=== PATIENT | female | born 1955 | race Caucasian/White ===

== ENCOUNTER 2024-03-08 08:08 | Outpatient (REF) | payer MEDICARE, SELFPAY ==
--- NOTE | ~2024-03-08 | XR_ITS ---
EXAMINATION: XR SHOULDER, RIGHT CLINICAL INFORMATION: Pain in right shoulder. COMPARISON: None available. TECHNIQUE: Two views of the right shoulder. FINDINGS: Diffusely demineralized. Degenerative changes in the imaged upper thoracic spine. Moderate osteoarthritic changes in the acromioclavicular joint. Glenohumeral alignment preserved. Nriw-hs-zfcegnff narrowing with sclerosis in the subacromial space. XR/XR shoulder RT min 2V IMPRESSION: Pdmn-oq-zvefzmif degenerative changes.
== END 2024-03-08 08:09 | disposition home or self-care (01) ==
LOC: HO.HOSX 08:08
PROVIDERS: Visit Provider Orthopaedic Surgery
DX: M25.811 Other specified joint disorders, right shoulder (principal)
CPT/HCPCS: 73030; 99212; J1010

== ENCOUNTER 2024-03-08 12:43 | Outpatient (AMB) | payer MEDICARE, SELFPAY ==
--- NOTE | 2024-03-08 12:53 | MHC.OFFVIS ---
Vital Signs 03/08/24 12:58 Height 5 ft Weight 111 lb BMI 21.7 Intake Visit Reasons: SLEEPING [employer]- Right shoulder pain Intake Note: Michelle is a 68 year old Right hand dominate female who presents as a new patient with Right shoulder pain. Patient reports her pain has been going on for about a month and is a 5 on the 1-10 pain scale. She is using tylenol,ice, heat and physical therapy for the pain with minimal relief. She denies injury, injections, and surgery. She states that she is interested in a cortisone injection. She has had cortisone injections given into her knee. She did undergo right total knee replacement surgery 7 years ago. She denies any pain in her right knee. She wishes to hold off on surgery for as long as possible. Allergies No Known Allergies Allergy (Verified 03/08/24 13:01) Medication List - Last Reconciled 03/08/24 by Luis Armando Wright MD acetaminophen 1,000 mg PO TID tmlzhqrzuo-ycpfpnwlddhhd-jvaj 50-325-40 mg 1 - 2 tabs PO DAILY PRN celecoxib 100 mg PO BID estradiol 0.01%(0.1mg/gram) vaginal omeprazole 20 mg PO BID ropinirole 0.25 mg PO BID sertraline 50 mg PO DAILY trazodone 200 mg PO BEDTIME PRN PFSH Surgical History (Updated 03/08/24 @ 13:02 by Carissa eWbster CMA) H/O: hysterectomy Hx of right knee surgery Social History (Updated 03/08/24 @ 13:03 by Carissa Webster CMA) Patient Tobacco Use Status: Never used Tobacco Current occupational status: retired Current occupation: Right hand dominate Physical Exam Vital Signs: BMI result Body Mass Index 21.7 Const Other: Well-nourished well-developed very friendly female awake alert and oriented x3 in no acute distress Extrem Other: Bilateral upper extremity examination shows good capillary refill, no skin lesions noted, normal sensation light touch Right shoulder examination shows decreased range of motion when compared to her left shoulder, positive impingement signs, tenderness over her acromioclavicular joint, 4+ out of 5 strength with supraspinatus testing, no instability Assessment & Plan Assessment & Plan (1) Impingement of right shoulder: Code(s): M25.811 - Other specified joint disorders, right shoulder Category: Medical Plan Ms. Abbott presents with right shoulder pain due to impingement syndrome, rotator cuff tendinosis and possible rotator cuff tearing. I had a lengthy discussion with the patient regarding the treatment options. The patient wishes hold off on surgery for as long as possible. I agree with this plan. The risks and benefits of a right shoulder cortisone injection were discussed at length with the patient. The patient wished to proceed with the injection. She tolerated the injection well. She will continue with her formal physical therapy for now. She will gradually transition to a home stretching program. She will contact me prior to her follow-up appointment in 3 months should any questions or concerns arise. Feel free to call me at any time should questions regarding her orthopedic management arise. I spent 21 minutes in reviewing the patient's records and imaging studies, seeing the patient and documenting in the medical record. Orders: Orders AMB Joint Injection/Aspiration Today M25.811 - Other specified joint disorders, right shoulder XR shoulder RT min 2V Today M25.511 - Pain in right shoulder Coding Level of Care Code Est Pt Level 3 (50439) Diagnoses Impingement of right shoulder M25.811
[2024-03-08 12:58] VITALS: BMI 21.7
== END 2024-03-08 13:25 | disposition home or self-care (01) ==
PROVIDERS: Visit Provider Orthopaedic Surgery
DX: M25.811 Other specified joint disorders, right shoulder (principal)
CPT/HCPCS: 99213

== ENCOUNTER 2024-06-27 08:29 | Outpatient (AMB) | payer MEDICARE, SELFPAY ==
--- NOTE | 2024-06-27 08:32 | MHC.OFFVIS ---
Vital Signs 06/27/24 08:41 Height 5 ft Weight 111 lb BMI 21.7 Intake Visit Reasons: OV-Right shoulder injection-last injection 03/08/24 Intake Note: Michelle is a 68 year old female who presents with complaints of progressively worsening right shoulder pain and weakness. The patient describes her pain as sharp and severe in nature. Most of the pain is along the lateral aspect of her shoulder. Her pain has gotten worse over the last year in spite of continued non operative treatments. She has failed the last 6 weeks of conservative treatment. She did have a cortisone injection given into her right shoulder on March 08 which gave her minimal relief. The patient reports weakness when lifting her right hand above shoulder height. She has tried Tylenol and anti-inflammatory medicines which gave her minimal relief. The patient states that her right shoulder pain is now interfering with her activities of daily living and her ability to sleep well through the night. Allergies No Known Allergies Allergy (Verified 06/27/24 08:40) Medication List - Last Reconciled 06/27/24 by Luis Armando Wright MD acetaminophen 1,000 mg PO TID yxxnqjlwhd-igxsefnjmjzee-cyrw 50-325-40 mg 1 - 2 tabs PO DAILY PRN celecoxib 100 mg PO BID estradiol 0.01%(0.1mg/gram) vaginal omeprazole 20 mg PO BID ropinirole 0.25 mg PO BID sertraline 50 mg PO DAILY trazodone 200 mg PO BEDTIME PRN PFSH Surgical History (Updated 03/08/24 @ 13:02 by Carissa Webster CMA) H/O: hysterectomy Hx of right knee surgery Social History Patient Tobacco Use Status: Never used Tobacco Current occupational status: retired Current occupation: Right hand dominate Physical Exam Vital Signs: BMI result Body Mass Index 21.7 Const Other: Well-nourished well-developed very friendly female awake alert and oriented x3 in no acute distress Extrem Other: Bilateral upper extremity examination shows good capillary refill, no skin lesions noted, normal sensation light touch Right shoulder examination shows decreased range of motion when compared to her left shoulder, pain with range of motion, positive impingement signs, 4+ out of 5 strength with supraspinatus testing, tenderness over her acromioclavicular joint, no instability Results Reviewed Results Reviewed: X-rays of the patient's right shoulder taken previously show severe acromioclavicular joint narrowing, a type 2 acromion, no acute bony abnormalities Assessment & Plan Assessment & Plan (1) Right shoulder pain: Code(s): M25.511 - Pain in right shoulder Category: Medical Plan Ms. Abbott presents with progressively worsening right shoulder pain and weakness due to acromioclavicular joint arthritis, impingement syndrome and possible full-thickness rotator cuff tearing. Thus, I will send the patient for an MRI of her right shoulder for further evaluation. I will see her back once the MRI is completed to discuss the findings and treatment options. She will continue with her range of motion exercises in the meantime to prevent stiffness. Feel free to call me at any time should questions regarding her orthopedic management arise. I spent 22 minutes in reviewing the patient's records and imaging studies, seeing the patient and documenting in the medical record. Orders: Orders MR shoulder RT wo con Today M25.311 - Other instability, right shoulder Coding Level of Care Code Est Pt Level 3 (00157) Diagnoses Right shoulder pain M25.511
[2024-06-27 08:41] VITALS: BMI 21.7
== END 2024-06-27 08:53 | disposition home or self-care (01) ==
PROVIDERS: Visit Provider Orthopaedic Surgery
DX: M25.511 Pain in right shoulder (principal)
CPT/HCPCS: 99213

== ENCOUNTER → 2024-06-27 08:29 | Outpatient (BNVA) | payer MEDICARE, SELFPAY | PROVIDERS: Visit Provider Orthopaedic Surgery | DX: M25.511 Pain in right shoulder (principal) | CPT/HCPCS: 99212 ==

== ENCOUNTER 2024-08-01 11:05 | Outpatient (AMB) | payer MEDICARE, SELFPAY ==
[2024-08-01 11:10] VITALS: BMI 21.7
--- NOTE | 2024-08-01 11:10 | A.OFFVIS_ITS ---
Vital Signs 08/01/24 11:10 Height 5 ft Weight 111 lb BMI 21.7 Intake Visit Reasons: MRI RT shoulder review Intake Note: Michelle is a 68 year old female who presents with complaints of progressively worsening right shoulder pain and weakness. The patient describes her pain as sharp and severe in nature. Most of the pain is along the lateral aspect of her shoulder. Her pain has gotten worse over the last year in spite of continued non operative treatments. She has failed the last 6 weeks of conservative treatment. She did have a cortisone injection given into her right shoulder on March 08 which gave her minimal relief. The patient reports weakness when lifting her right hand above shoulder height. She has tried Tylenol and anti- inflammatory medicines which gave her minimal relief. The patient states that her right shoulder pain is now interfering with her activities of daily living and her ability to sleep well through the night. Allergies No Known Allergies Allergy (Verified 08/01/24 11:11) Medication List - Last Reconciled 08/01/24 by Luis Armando Wright MD acetaminophen 1,000 mg PO TID rdwdhtqive-rzcywaqvlltny-jmrb 50-325-40 mg 1 - 2 tabs PO DAILY PRN celecoxib 100 mg PO BID estradiol 0.01%(0.1mg/gram) vaginal omeprazole 20 mg PO BID ropinirole 0.25 mg PO BID sertraline 50 mg PO DAILY trazodone 200 mg PO BEDTIME PRN PFSH Surgical History (Updated 03/08/24 @ 13:02 by Carissa Webster CMA) H/O: hysterectomy Hx of right knee surgery Social History Patient Tobacco Use Status: Never used Tobacco Current occupational status: retired Current occupation: Right hand dominate Physical Exam Vital Signs: BMI result Body Mass Index 21.7 Const Other: Well-nourished well-developed very friendly female awake alert and oriented x3 in no acute distress Extrem Other: Bilateral upper extremity examination shows good capillary refill, no skin lesi ons noted, normal sensation light touch Right shoulder examination shows slightly decreased range of motion when compared to her left shoulder, 3/5 strength with supraspinatus testing, positive impingement signs, no instability Results Reviewed Results Reviewed: MRI of the patient's right shoulder shows a chronic rotator cuff tear involving the supraspinatus and infraspinatus tendons with retraction almost to the glenoid lip as well as a high-riding humeral head consistent with chronic rotator cuff tearing Assessment & Plan Assessment & Plan (1) Right shoulder pain: Code(s): M25.511 - Pain in right shoulder Category: Medical Plan Ms. Abbott presents with progressively worsening right shoulder pain and weakness due to chronic rotator cuff tear arthropathy. I had a lengthy discussion with the patient regarding the treatment options. At this point the patient appears to be failing continued non operative treatments. The patient may be a candidate for reverse total shoulder replacement surgery. Thus, I will arrange for her to have a follow-up appointment with my partner, Dr. Finnegan, to further discuss the risks and benefits of this type of procedure. The patient will continue with digem-xb-tuuuen exercises in the meantime to prevent stiffness. Feel free to call me at any time should questions regarding her orthopedic management arise. I spent 20 minutes in reviewing the patient's records and imaging studies, seeing the patient and documenting in the medical record. Coding Level of Care Code Est Pt Level 3 (49825) Complex EM visit Add On G2211 Diagnoses Right shoulder pain M25.511
== END 2024-08-01 11:46 | disposition home or self-care (01) ==
PROVIDERS: Visit Provider Orthopaedic Surgery
DX: M75.121 Complete rotator cuff tear or rupture of right shoulder, not specified as traumatic (principal)
CPT/HCPCS: 99213; G2211

== ENCOUNTER → 2024-08-01 11:05 | Outpatient (BNVA) | payer MEDICARE, SELFPAY | PROVIDERS: Visit Provider Orthopaedic Surgery | DX: M25.511 Pain in right shoulder (principal) | CPT/HCPCS: 99212 ==

== ENCOUNTER 2024-08-17 11:45 | Outpatient (AMB) | payer MEDICARE, SELFPAY ==
--- NOTE | 2024-08-17 11:47 | A.OFFVIS_ITS ---
Vital Signs 08/17/24 11:48 Height 5 ft Weight 111 lb BMI 21.7 Intake Visit Reasons: OV- RT shoulder replacement discuss Intake Note: Michelle is a 68 year old right hand dominant female who presents today as she was referred by Dr. Wright to discuss possible Right Total Shoulder Arthroplasty. Right shoulder injection was administered on 03/08/24 which provided minimal relief. Patient reports that she is having pain all the time, worse with activity. She takes Tylenol and Ibuprofen for her pain on occasion which is only mildly helpful. MRI at [facility] 07/06/24 1. Rotator cuff arthropathy and massive rotator cuff tear with glenohumeral joint effusion and fluid extending throughout the subacromial/subdeltoid bursa. 2. Mild AC joint degenerative changes. 3. There is mild glenohumeral joint degenerative change. Allergies No Known Allergies Allergy (Verified 08/17/24 11:48) HPI HPI OV- RT shoulder replacement discuss: Details: Michelle is a 68 year old right hand dominant female who presents today as she was referred by Dr. Wright to discuss possible Right Total Shoulder Arthroplasty. Right shoulder injection was administered on 03/08/24 which provided minimal relief. Patient reports that she is having pain all the time, worse with activ ity. She takes Tylenol and Ibuprofen for her pain on occasion which is only mildly helpful. She denies any injury. She states she just woke up with pain 1 day. It has improved slightly from then. She is able to do most of her daily activities and states that when she can not do something she has assistance. [facility] Surgical History (Updated 08/17/24 @ 11:57 by Courtney Souza CMA) History of bladder surgery H/O: hysterectomy Hx of right knee surgery (~2017) Social History Patient Tobacco Use Status: Never used Tobacco Current occupational status: retired Current occupation: Right hand dominant Physical Exam Vital Signs: BMI result Body Mass Index 21.7 Extrem Other: 90 degrees of abduction with shoulder recruitment 120 degrees of forward flexion External Rotation to 35 degrees 4-/5 empty can Results Reviewed Results Reviewed: I personally reviewed the MR images. MRI at [facility] 07/06/24 1. Rotator cuff arthropathy and massive rotator cuff tear with glenohumeral joint effusion and fluid extending throughout the subacromial/subdeltoid bursa. 2. Mild AC joint degenerative changes. 3. There is mild glenohumeral joint degenerative change. Assessment & Plan Assessment & Plan (1) Rotator cuff arthropathy of right shoulder: Code(s): M12.811 - Other specific arthropathies, not elsewhere classified, right shoulder Category: Medical Plan: This is a 68-year-old woman with right rotator cuff arthropathy. She has a massive rotator cuff tear and proximal humeral migration. She does have discomfort most of the day but states it is tolerable. I informed her of the surgical options which include reverse total shoulder arthroplasty. I also informed her that there is no time pressure to do the surgery and that doing it now or any year would be essentially equivalent assuming that she can continue to function without total motion loss. She seems to be able to do so and is not suffering at this moment. I described the surgery to her and the recovery time. She will consider it but at this time she does not feel like it is needed. She can see me at any time in the future should she so desire Coding Level of Care Code Est Pt Level 4 (25838) Diagnoses Rotator cuff arthropathy of right shoulder M12.811
[2024-08-17 11:48] VITALS: BMI 21.7
== END 2024-08-17 12:15 | disposition home or self-care (01) ==
PROVIDERS: Visit Provider Orthopaedic Surgery
DX: M12.811 Other specific arthropathies, not elsewhere classified, right shoulder (principal)
CPT/HCPCS: 99214

== ENCOUNTER → 2024-08-17 11:45 | Outpatient (BNVA) | payer MEDICARE, SELFPAY | PROVIDERS: Visit Provider Orthopaedic Surgery | DX: M12.811 Other specific arthropathies, not elsewhere classified, right shoulder (principal) | CPT/HCPCS: 99212 ==

== ENCOUNTER 2025-02-28 08:18 | Outpatient (AMB) | payer MEDICARE, SELFPAY ==
--- OUTSIDE RECORDS SUMMARY | 2025-02-28 08:35 | XMS_ITS | Clinical Summary ---
Author Organization [facility] [address] [place] [address] Address [address], [place] Phone Care Team Providers Care Master In Chancery Name Role Phone Tamika Zamora MD Primary Care Prov ider Allergies Active Allergy Reactions Criticality Noted Date Comments Other 09/16/2015 perfumes Medications cholecalciferol (VITAMIN D-3) 25 mcg (1,000 unit) tablet Take 1 tablet (1,000 Units total) by mouth 1 (one) time each day. Active estradioL (ESTRACE) 0.01 % (0.1 mg/gram) vaginal cream Apply a pea-sized amount of cream with your finger into the vagina daily at bedtime for 2 weeks, then two times a week at night. 0 Active rOPINIRole (REQUIP) 0.25 mg tablet Take 2 tablets by mouth 1 hour before bedtime 1 Active traZODone (DESYREL) 100 mg tablet Take 2 tablets (200 mg total) by mouth at bedtime. 7 Active celecoxib (CeleBREX) 100 mg capsule Take 1 capsule (100 mg total) by mouth 2 (two) times a day. 180 each 1 4 Active acetaminophen (TYLENOL 8 HOUR ORAL) Take by mouth. Activ e omeprazole (PriLOSEC) [address] capsule TAKE ONE CAPSULE BY MOUTH TWO TIMES A DAY 4 Active hyoscyamine (ANASPAZ,LEVSIN ) 0.125 mg tablet Active clobetasoL (TEMOVATE) 0.05 % ointment Apply a small amount of clobetasol ointment to vulva twice daily for four weeks. Then, apply daily for four weeks. Then, apply three times per week for four weeks. Then apply twice weekly for four weeks. Then apply once weekly. 3 Active MAGNESIUM ORAL Take 1 Tablet by mouth daily. Active butalbital-acet aminophen-caffe ine (FIORICET, ESGIC) 50-325-40 mg per tabletIndicatio ns:Chronic cough Take 1 tablet by mouth every 6 (six) hours if needed for headaches. 32 tablet 1 5 Active sertraline (ZOLOFT) 50 mg tablet Take 1 tablet (50 mg total) by mouth 1 (one) time each day. 90 tablet 1 5 Active oxyCODONE (ROXICODONE) 5 mg immediate release tablet Take 1 tablet (5 mg total) by mouth every 6 (six) hours if needed for severe pain. Max Daily Amount: 20 mg 15 tablet 5 Active Active Problems Problem Noted Date Diagnosed Date Recurrent UTI 10/10/2024 Esophagitis 07/20/2022 Atrophic vaginitis 05/01/2021 Restless leg syndrome 05/01/2021 Chronic cough 12/07/2019 Chronic rhinitis 12/07/2019 Urinary incontinence 10/25/2019 Insomnia 03/19/2015 Chronic headaches 09/18/2014 Diverticulosis of sigmoid colon 01/24/2009 Overview (10/10/2024): Incidental finding on colonoscopy Hypercholesteremia 11/25/2008 Overview (10/10/2024): ASCVD risk score 3.9% 01/21/2022 Encounters Date Type Department Care Team Description 02/20/2025 7:41 AM EDT - 02/20/2025 11:59 PM EDT Hospital Encounter [facility]o Xray [address] [place] [address] Pain Discharge Disposition: Home or Self Care 02/08/2025 Telephone Adult Medicine [address] [address] Tamika Zamora MD jury duty 02/05/2025 9:41 AM EDT - 02/05/2025 11:59 PM EDT Hospital Encounter [facility] [address] [place] [address] Pain Discharge Disposition: Home or Self Care 02/03/2025 3:40 PM EDT - 02/03/2025 9:36 PM EDT Emergency [facility] Emergency [address] [place] [address] Joe Rodriguez MD Closed fracture of left tibial plateau, initial encounter (Primary Dx) Discharge Disposition: Home or Self Care 01/08/2025 7:34 AM EST Anesthesia Event [facility] Endoscopy [address] [place] [address] Christiane Miller MD Guerin, Erik R, PHILATELIC CONSULTANT 01/08/2025 6:51 AM EST - 01/08/2025 11:59 PM EST Hospital Encounter [facility] Endoscopy [address] [place] [address] Carlie Bains DO Guerin, Erik R, PHILATELIC CONSULTANT Positive colorectal cancer screening using Cologuard test Discharge Disposition: Home or Self Care 12/20/2024 3:45 PM EST Office Visit Adult Medicine - [place] [address] [place] [address] Tamika Zamora MD Chronic cough (Primary Dx); Chronic tension-type headache, intractable; Colon cancer screening from Last 3 Months Immunizations Name Administration Dates Next Due Influenza Quadravalent, MDCK , 0.5ml, preservative free (Flucelvax) 6mo and older 08/29/2019 Influenza trivalent, 0.5mL ( Fluad) 65yo and older 09/08/2022 Influenza trivalent, 0.5mL, preservative free (Fluarix; FluLaval; Fluzone) ages 6mo and older (Afluria) 3 years and older 08/12/2021 Influenza trivalent, with pr eservative (Fluzone; Afluria) 6mo and older 08/08/2015,08/08/2013,10/08/2012 Moderna SARS-CoV-2 COVID-19, mRNA, LNP-S, preservative free 03/11/2022 Pfizer (age 5-11) Bivalent, COVID-19 08/12/2022 Pfizer SARS-CoV-2 COVID-19, mRNA, LNP-S, preservative free 09/11/2021,02/04/2021,01/14/2021 Pneumococcal conjugate 20 va lent (Prevnar 20, PCV 20) 2mo and older 01/21/2022 Td Tetanus diptheria (Tdvax) 7yo and older 04/17 Tdap Tetanus diptheria acell ular pertussis (Boostrix; Adacel) 7yo and older 11/17/2012 Zoster recombinant (Shingrix ) 19yo and older 08/13/2018,05/10/2018 Surgical History Surgery Date Site/Laterality Comments OTHER SURGICAL HISTORY 02/27/14 PROCEDURE: HISTORY OTHER; COMMENT: laparoscopic lysis of adhesions for small bowel obstruction TOTAL KNEE ARTHROPLASTY 05/10/2017 Right PROCEDURE: [place] ARTHRP KNE CONDYLE&PLATU MEDIAL&LAT COMPARTMENTS OTHER SURGICAL HISTORY 05/2015 PROCEDURE: [place] SLING OPERATION STRESS INCONTINENCE INCISIONAL HERNIA REPAIR 10/13/2018 PROCEDURE: [place] IMPLANT MESH OPN HERNIA RPR/DEBRIDEMENT CLOSURE; COMMENT: Dr. Cabrera COLONOSCOPY 01/24/09 PROCEDURE: HISTORICAL COLONOSCOPY; COMMENT: Up to cecum, regular preparation in the right colon, good preparation in the left colon, sigmoid diverticulosis, otherwise normal colon exam HYSTERECTOMY 1986 PROCEDURE: HISTORICAL HYSTERECTOMY; COMMENT: Total Vaginal Hyst She had a prolapsed uterus after her 3rd child PARTIAL HYSTERECTOMY 1983 PROCEDURE: [place] SUPRACERVICAL ABDL HYSTER W/WO RMVL TUBE OVARY; COMMENT: age 28 COLONOSCOPY PROCEDURE: HISTORICAL COLONOSCOPY; COMMENT: Martínez Diverticulosis Coli, Sml Internal Hemorrhoids, Repeat 10 yrs BLADDER SUSPENSION 01/21/2011 PROCEDURE: HISTORICAL BLADDER SUSPENSION; COMMENT: Lap abd sacrocolpopexy and Monarc suburethral sling for cystocele, vaginal vault prolapse and stress urinary incontinence OTHER SURGICAL HISTORY 2012 PROCEDURE: [place] ANTERIOR COLPORRAPHY RPR CYSTOCELE W/CYSTO; COMMENT: for mesh extrusion and anterior cystocele Medical History Medical History Date Comments Insomnia DX:Insomnia Total knee replacement status DX :Total knee replacement status; COMMENT: 2017 Right Recurrent UTI DX:Recurrent UTI Chronic headaches 09/18/2014 DX:Chronic hea daches Diverticulosis of sigmoid colon 01/24/2009 DX:Diverticulosis of sigmoid colon Screen for colon cancer 12/23/2013 DX:Scree n for colon cancer; COMMENT: Dr gates, done 2013, next due 2023 Urinary incontinence 10/25/2019 DX:Urinary incontinence Family History Medical History Relation Name Comments Prostate cancer Brother 1 Arthritis Brother 2 No Known Problems Daughter Alzheimer's disease Father Arthritis Father Dementia Father Diabetes Father Alzheimers Dise ase, Pacemaker, [place] Prostate Arthritis Mother Asthma Mother Substance Abuse , Hypertension, Stroke, Depression Stroke Mother No Known Problems Sister 1 No Known Problems Sister 2 No Known Problems Sister 3 No Known Problems Son 1 Asthma Son 2 Other: stage 4 kidney disease Son 2 Breast cancer Neg Hx Relation Name Status Comments Brother 1 Alive Brother 2 Alive Daughter Alive Father Maternal Grandfather Maternal Grandmother Mother Paternal Grandfather Paternal Grandmother Sister 1 Alive Sister 2 Alive Sister 3 Alive Son 1 Alive Son 2 Alive Social History Tobacco Use Types Packs/Day Years Used Date Smoking Tobacco: Former Cigarettes Q uit: 02/06/1986 Smokeless Tobacco: Never Alcohol Use Standard Drinks/Week Comments Yes 4 (1 standard drink = 0.6 oz pur e alcohol) Comments No Sex and Gender Information Value Date Recorded Sex Assigned at Female 01/08/2025 6:49 AM EST Legal Sex Female 10:08 AM EST Gender Identity Female 01/08/2025 6:49 AM EST Sexual Orientation Straight 01/08/2025 6: 49 AM EST Obstetrics History Para Term AB IAB SAB Ectopic Multiple Livin g Live Births 3 3 3 3 Date Outcome GA Total Labor Labor/2nd/3rd Weight Sex Type Anes PTL Nancy A1 A5 Name Clin Term Term Term Last Filed Vital Signs Vital Sign Reading Time Taken Comments Blood Pressure 120/91 02/03/2025 3:47 PM EDT Pulse 79 02/03/2025 9:35 PM EDT Temperature 36.5 ??C (97.7 ??F) 02/03/2025 3:47 PM ED T Respiratory Rate 18 02/03/2025 9:35 PM EDT Oxygen Saturation 98% 02/03/2025 9:35 PM EDT Inhaled Oxygen Concentration - - Weight 46.7 kg (103 lb) 02/03/2025 3:47 PM EDT Height 149.9 cm (4' 11 ) 02/03/2025 3:47 PM EDT Body Mass Index 20.8 02/03/2025 3:47 PM EDT Plan of Treatment Health Maintenance Due Date Last Done Comments Colorectal Cancer Screening: Stool Based Tests (FOBT/FIT) 10/15/2022 09/04/2020, 06/01/2019, 02/01/2018, Additional history exists Osteoporosis Screening (Bone Density Screening) 10/15/2022 Social Influencers of Health Screening 10/15/2022 COVID-19 Vaccine ( season) 2025 08/03/2024, 08/31/2023, 08/12/2022, Additional history exists Depression Screening 06/28/2025 06/28/2024 Medicare Annual Wellness Visit 06/28/2025 06/28/2024 Falls Risk Assessment 01/08/2026 01/08/2025 Breast Cancer Screening 10/30/2026 10/30/20, 10/22/2023, 11/11/2022, Additional history exists Cholesterol Screening (Lipid Panel) 01/20/2027 01/20/2022 Colorectal Cancer Screening: Colonoscopy 01/08/2030 01/08/2025 DTaP,Tdap,and Td Vaccines (4 - Td or Tdap) 04/17/2034 04/17/2024, 11/17/2012, 11/08/2002 Hepatitis C Screening Completed 01/04/2014 Zoster Vaccines Completed 08/13/2018, 05/10/2018 Pneumococcal Vaccine: 50+ Years Completed 01/21/2022, 01/22/2011 RSV Immunization Adult Patients Completed 09/19/2023 Influenza Vaccine Completed 07/26/2024, , 09/08/2022, Additional history exists HIB Vaccines Aged Out No longer eligi ble based on patient's age to complete this topic HPV Vaccines Aged Out No longer eligi ble based on patient's age to complete this topic Hepatitis A Vaccines Aged Out No long er eligible based on patient's age to complete this topic Hepatitis B Vaccines Aged Out No long er eligible based on patient's age to complete this topic IPV Vaccines Aged Out No longer eligi ble based on patient's age to complete this topic MMR Vaccines Aged Out No longer eligi ble based on patient's age to complete this topic Meningococcal ACWY Vaccine Aged Out N o longer eligible based on patient's age to complete this topic Meningococcal B Vaccine Aged Out No l onger eligible based on patient's age to complete this topic RSV Immunization Patients Under 20 months Aged Out No longer eligible based on patient's age to complete this topic Varicella Vaccines Aged Out No longer eligible based on patient's age to complete this topic Procedures Procedure Name Priority Date/Time Associated Diagnosis Comments XR KNEE 1-2 VIEWS LEFT Routine 02/20/2025 10:10 AM EDT Pain XR KNEE 1-2 VIEWS LEFT Routine 02/05/2025 9:[address] LOWER EXTREMITY WO CONTRAST LEFT STAT 02/03/2025 7:32 PM EDT XR KNEE 4+ VIEWS LEFT STAT 02/03/2025 4:01 PM EDT COLONOSCOPY Routine 01/08/2025 8:04 AM EST Positive colorectal cancer screening using Cologuard test TISSUE EXAM Routine 01/08/2025 7:58 AM EST Positive colorectal cancer screening using Cologuard test LAB COLOGUARD?? COLON CANCER SCREEN Routine 12/26/2024 7:45 AM EST Colon cancer screening MG MAMMO DIGITAL SCREENING W GUNNAR BILAT Routine 10/30/2024 7:54 AM EST Encounter for screening mammogram for breast cancer HM DEPRESSION SCREENING Routine 06/28/2024 LIPID PANEL Routine 01/20/2022 HEPATITIS C SCREENING Routine 01/04/2014 from Last 3 Months or Most Recently Relevant to Health Maintenance Results * XR Knee 1-2 Views Left (02/20/2025 10:10 AM EDT) Only the most recent of2 resultswithin the time period is included. Narrative RIS PACS/VR - 02/20/2025 10:10 AM EDT This order has been auto-finalized and does not contain a result. Vanita Cool MD IMG XR PROCEDURES Final Result RIS PACS/VR * CT Lower Extremity wo Contrast Left (02/03/2025 7:32 PM EDT) Anatomical Region Laterality Modality Lower Extremities Left Computed Tomog pratibha 02/03/2025 8:03 PM EDT Impressions 02/03/2025 8:03 PM EDT Impression: Lateral tibial plateau mild depression fracture, Schatzker B2. Large joint effusion This document has been electronically signed by: Benjamin Monsalve MD on 02/03/2025 20:03:04 Narrative 02/03/2025 8:03 PM EDT INDICATION: Tibial plateau fracture (Age >= 1y) CT left knee without contrast: Comparison: None. Findings: There is a large suprapatellar joint effusion. The distal femur and patella are unremarkable. There is a comminuted depressed fracture of the lateral tibial plateau Schatzker B2, with depression of the articular surface not affecting the lateral tibial eminence or metaphysis. The fibula is normal. The medial femoral tibial joint space without weight-bearing is normal distance, but with sclerotic articular cortex due to cartilage loss. Procedure Note Benjamin Monsalve MD - 02/03/2025 INDICATION: Tibial plateau fracture (Age >= 1y) CT left knee without contrast: Comparison: None. Findings: There is a large suprapatellar joint effusion. The distal femur and patella are unremarkable. There is a comminuted depressed fracture of the lateral tibial plateau Schatzker B2, with depression of the articular surface not affecting the lateral tibial eminence or metaphysis. The fibula is normal. The medial femoral tibial joint space without weight-bearing is normal distance, but with sclerotic articular cortex due to cartilage loss. IMPRESSION: Impression: Lateral tibial plateau mild depression fracture, Schatzker B2. Large joint effusion This document has been electronically signed by: Bejnamin Monsalve MD on 02/03/2025 20:03:04 Joe Rodriguez MD IMG CT PROCEDURES Final Result * XR Knee 4+ Views Left (02/03/2025 4:01 PM EDT) Anatomical Region Laterality Modality Lower Extremities, Knee Left Radiogra phic Imaging 02/03/2025 4:04 PM EDT Impressions 02/03/2025 4:06 PM EDT Lateral tibial plateau fracture with joint effusion. -------- FINAL REPORT -------- Dictated By: Debbie Davalos Dictated Date: 02/03/2025 16:04 ET Assigned Physician: Debbie Davalos Reviewed and Electronically Signed By: Debbie Davalos Signed Date: 02/03/2025 16:06 ET Workstation ID: [id number] Transcribed By: Self Edit Transcribed Date: 02/03/2025 16:04 ET Narrative 02/03/2025 4:06 PM EDT INDICATION: Knee pain FINDINGS: 4 views of the left knee were obtained. No prior studies available for comparison. Bones: Mild degenerative changes. Lateral tibial plateau fracture suspected with minimal depression. Soft tissues: Moderate joint effusion noted. Procedure Note Debbie Davalos MD - 02/03/2025 INDICATION: Knee pain FINDINGS: 4 views of the left knee were obtained. No prior studiesavailable for comparison. Bones: Mild degenerative changes. Lateral tibial plateau fracturesuspected with minimal depression. Soft tissues: Moderate joint effusion noted. IMPRESSION: Lateral tibial plateau fracture with joint effusion. -------- FINAL REPORT -------- Dictated By: Debbie Davalos Dictated Date: 02/03/2025 16:04 ET Assigned Physician: Debbie Davalos Reviewed and Electronically Signed By: Debbie Davalos Signed Date: 02/03/2025 16:06 ET Workstation ID: [id number] Transcribed By: Self Edit Transcribed Date: 02/03/2025 16:04 ET Jamil West MD IMG XR PROCEDURES Final Result * COLONOSCOPY Anesthesia - MAC; SP ENDOSCOPY (01/08/2025 8:04 AM EST) Anatomical Region Laterality Modality Endoscopy 01/08/2025 7:34 AM EST Impressions 01/08/2025 8:05 AM EST - Hemorrhoids found on perianal exam. ? - One 3 mm polyp in the rectum, removed with a jumbo ? cold forceps. Resected and retrieved. ? - One 8 mm polyp in the cecum, removed with a cold ? snare. Resected and retrieved. ? - The examination was otherwise normal on direct and ? retroflexion views. Recommendation: ?- - Discharge patient to home. ? - High fiber diet. ? - Continue present medications. ? - Await pathology results. ? - Repeat colonoscopy for surveillance based on ? pathology results. Narrative 01/08/2025 8:05 AM EST [facility] GI Patient Name: Michelle Abbott Procedure Date: 01/08/2025 7:34 AM Date of : 1955 Age: 69 Gender: Female Note Status: Finalized Attending MD: Carlie Bains DO, [id number] Procedure Date No Time: 01/08/2025 Procedure: ? Colonoscopy Indications: ? Positive Cologuard test Providers: ? Carlie Bains DO Referring MD: ?Tamika Zamora MD Medicines: ? Monitored Anesthesia Care Complications: ? No immediate complications. Estimated blood loss: ? Minimal. Estimated Blood Loss: ? Estimated blood loss was minimal. Procedure: ? Pre-Anesthesia Assessment: ? - - Prior to the procedure, a History and Physical was ? performed, and patient medications and allergies were ? reviewed. The patient is competent. The risks and ? benefits of the procedure and the sedation options and ? risks were discussed with the patient. All questions ? were answered and informed consent was obtained. ? Patient identification and proposed procedure were ? verified by the physician, the nurse, the ? anesthesiologist, the verifying machine operator and the bench repair technician ? in the pre-procedure area in the endoscopy suite. ? Mental Status Examination: alert and oriented. Airway ? Examination: normal oropharyngeal airway and neck ? mobility. Respiratory Examination: clear to ? auscultation. CV Examination: normal. Prophylactic ? Antibiotics: The patient does not require prophylactic ? antibiotics. Prior Anticoagulants: The patient has ? taken no anticoagulant or antiplatelet agents. ASA ? Grade Assessment: II - A patient with severe systemic ? disease. After reviewing the risks and benefits, the ? patient was deemed in satisfactory condition to ? undergo the procedure. The anesthesia plan was to use ? monitored anesthesia care (MAC). Immediately prior to ? administration of medications, the patient was ? re-assessed for adequacy to receive sedatives. The ? heart rate, respiratory rate, oxygen saturations, ? blood pressure, adequacy of pulmonary ventilation, and ? response to care were monitored throughout the ? procedure. The physical status of the patient was ? re-assessed after the procedure. ? After I obtained informed consent, the scope was ? passed under direct vision. Throughout the procedure, ? the patient's blood pressure, pulse, and oxygen ? saturations were monitored continuously. The ? Colonoscope was introduced through the anus and ? advanced to the cecum, identified by appendiceal ? orifice and ileocecal valve. The colonoscopy was ? performed without difficulty. The patient tolerated ? the procedure well. The quality of the bowel ? preparation was good. Findings: ?Hemorrhoids were found on perianal exam. ? A few small-mouthed diverticula were found in the ? sigmoid colon and descending colon. There was no ? evidence of diverticular bleeding. ? A 3 mm polyp was found in the rectum. The polyp was ? sessile. The polyp was removed with a jumbo cold ? forceps. Resection and retrieval were complete. ? Estimated blood loss was minimal. ? An 8 mm polyp was found in the cecum. The polyp was ? sessile. The polyp was removed with a cold snare. ? Resection and retrieval were complete. Verification of ? patient identification for the specimen was done. ? Estimated blood loss was minimal. ? The exam was otherwise without abnormality on direct ? and retroflexion views. Procedure Code(s): ? --- Professional --- ? 95885, Colonoscopy, flexible; with removal of ? tumor(s), polyp(s), or other lesion(s) by snare ? technique ? 77767, 59, Colonoscopy, flexible; with biopsy, single ? or multiple Diagnosis Code(s): ? --- Professional --- ? K64.9, Unspecified hemorrhoids ? D12.8, Benign neoplasm of rectum ? D12.0, Benign neoplasm of cecum ? R19.5, Other fecal abnormalities CPT copyright 2020 [employer]. All rights reserved. The codes documented in this report are preliminary and upon conventional machinist review may be revised to meet current compliance requirements. CARLIE Bains DO 01/08/2025 8:05:37 AM This report has been signed electronically.Carlie Bains DO Number of Addenda: 0 Note Initiated On: 01/08/2025 7:34 AM Scope In: Scope Out: ? Endoscopy Department at [facility] - [address] [place] [address], ? [place] [address] Procedure Note Carlie Bains DO - 01/08/2025 [facility] GI Patient Name: Michelle Abbott Procedure Date: 01/08/2025 7:34 AM Date of : 1955 Age: 69 Gender: Female Note Status: Finalized Attending MD: Carlie Bains DO, [id number] Procedure Date No Time: 01/08/2025 Procedure: Colonoscopy Indications: Positive Cologuard test Providers: Carlie Bains DO Referring MD: Tamika Zamora MD Medicines: Monitored Anesthesia Care Complications: No immediate complications. Estimated blood loss: Minimal. Estimated Blood Loss: Estimated blood loss was minimal. Procedure: Pre-Anesthesia Assessment: - - Prior to the procedure, a History and Physicalwas performed, and patient medications and allergieswere reviewed. The patient is competent. The risks and benefits of the procedure and the sedation optionsand risks were discussed with the patient. Allquestions were answered and informed consent was obtained. Patient identification and proposed procedure were verified by the physician, the nurse, the anesthesiologist, the verifying machine operator and thetechnician in the pre-procedure area in the endoscopy suite. Mental Status Examination: alert and oriented.Airway Examination: normal oropharyngeal airway and neck mobility. Respiratory Examination: clear to auscultation. CV Examination: normal. Prophylactic Antibiotics: The patient does not requireprophylactic antibiotics. Prior Anticoagulants: The patient has taken no anticoagulant or antiplatelet agents. ASA Grade Assessment: II - A patient with severesystemic disease. After reviewing the risks and benefits,the patient was deemed in satisfactory condition to undergo the procedure. The anesthesia plan was touse monitored anesthesia care (MAC). Immediately priorto administration of medications, the patient was re-assessed for adequacy to receive sedatives. The heart rate, respiratory rate, oxygen saturations, blood pressure, adequacy of pulmonary ventilation,and response to care were monitored throughout the procedure. The physical status of the patient was re-assessed after the procedure. After I obtained informed consent, the scope was passed under direct vision. Throughout theprocedure, the patient's blood pressure, pulse, and oxygen saturations were monitored continuously. The Colonoscope was introduced through the anus and advanced to the cecum, identified by appendiceal orifice and ileocecal valve. The colonoscopy was performed without difficulty. The patient tolerated the procedure well. The quality of the bowel preparation was good. Findings: Hemorrhoids were found on perianal exam. A few small-mouthed diverticula were found in the sigmoid colon and descending colon. There was no evidence of diverticular bleeding. A 3 mm polyp was found in the rectum. The polyp was sessile. The polyp was removed with a jumbo cold forceps. Resection and retrieval were complete. Estimated blood loss was minimal. An 8 mm polyp was found in the cecum. The polyp was sessile. The polyp was removed with a cold snare. Resection and retrieval were complete. Verificationof patient identification for the specimen was done. Estimated blood loss was minimal. The exam was otherwise without abnormality ondirect and retroflexion views. Procedure Code(s): --- Professional --- 18054, Colonoscopy, flexible; with removal of tumor(s), polyp(s), or other lesion(s) by snare technique 13076, 59, Colonoscopy, flexible; with biopsy,single or multiple Diagnosis Code(s): --- Professional --- K64.9, Unspecified hemorrhoids D12.8, Benign neoplasm of rectum D12.0, Benign neoplasm of cecum R19.5, Other fecal abnormalities CPT copyright 2020 [employer]. All rights reserved. The codes documented in this report are preliminary and upon conventional machinist reviewmay be revised to meet current compliance requirements. CARLIE Bains DO 01/08/2025 8:05:37 AM This report has been signed electronically.Carlie Bains DO Number of Addenda: 0 Note Initiated On: 01/08/2025 7:34 AM Scope In: Scope Out: Endoscopy Department at [facility] - [address] [place] [phone] IMPRESSION: - Hemorrhoids found on perianal exam. - One 3 mm polyp in the rectum, removed with ajumbo cold forceps. Resected and retrieved. - One 8 mm polyp in the cecum, removed with a cold snare. Resected and retrieved. - The examination was otherwise normal on directand retroflexion views. Recommendation: - - Discharge patient to home. - High fiber diet. - Continue present medications. - Await pathology results. - Repeat colonoscopy for surveillance based on pathology results. us Carlie Bains DO GI~PROCEDURE ORDERABLES Final Re sult * Tissue exam (01/08/2025 7:58 AM EST) Final Diagnosis A. Large Intestine, Cecum, polyp x1: - Tubular adenoma. B. Large Intestine, Rectum, polyp x1: - Hyperplastic polyp. 01/09/2025 9:07 AM EST [facility] LAB Gross Description A. Large Intestine, Cecum, polyp x1: Labeled cecum colon polyp x 1 . Received in formalin are seven irregular disrupted swartz mucosal tissue fragments, ranging from 0.1 cm to 0.4 cm in greatest dimension, which are wrapped in paper and submitted in toto in one cassette, seven pieces, multiple levels on one slide. B. Large Intestine, Rectum, polyp x1: Labeled LI rectum polyp x 1 . Received in formalin is a 0.3 cm irregular pink-red mucosal tissue fragment which is wrapped in paper and submitted in toto in one cassette, one piece, multiple levels on one slide. SUMANTH 01/09/2025 9:07 AM EST [facility] Disclaimer Unless otherwise specified, all tissue is 10% NB formalin fixed and paraffin embedded. 01/09/2025 9:07 AM EST [facility] Tissue Cecum structure / Unknown 01/08/2025 7:58 AM EST 01/08/2025 9:24 AM EST Tissue specimen (specimen) Rectum structure / Unknown 01/08/2025 8:02 AM EST 01/08/2025 9:24 AM EST us Carlie Herson DO LAB PATHOLOGY ORDERABLES Final R esult [facility] [address] [place] [address], * (ABNORMAL) Cologuard?? colon cancer screening (12/26/2024 7:45 AM EST) COLOGUARD Positive( A) Negative [facility] Comment: POSITIVE TEST RESULT. A positive Cologuard result should be followed with a colonoscopy or visual examination of the colon. The normal value (reference range) for this assay is negative. TEST DESCRIPTION: Composite algorithmic analysis of stool DNA-biomarkers with hemoglobin immunoassay. ?? Quantitative values of individual biomarkers are not reportable and are not associated with individual biomarker result reference ranges. Cologuard is intended for colorectal cancer screening of adults of either sex, 45 years or older, who are at average-risk for colorectal cancer (CRC). Cologuard has been approved for use by the U.S. FDA. The performance of Cologuard was established in a cross sectional study of average-risk adults aged 50-84. Cologuard performance in patients ages 45 to 49 years was estimated by sub-group analysis of near-age groups. Colonoscopies performed for a positive result may find as the most clinically significant lesion: colorectal cancer [4.0%], advanced adenoma (including sessile serrated polyps greater than or equal to 1cm diameter) [20%] or non- advanced adenoma [31%]; or no colorectal neoplasia [45%]. These estimates are derived from a prospective cross-sectional screening study of 10,000 individuals at average risk for colorectal cancer who were screened with both Cologuard and colonoscopy. (Khadar Crespo et al, N Engl J Med 2014;370(14):2488-8555.) Cologuard may produce a false negative or false positive result (no colorectal cancer or precancerous polyp present at colonoscopy follow up). A negative Cologuard test result does not guarantee the absence of CRC or advanced adenoma (pre-cancer). The current Cologuard screening interval is every 3 years. ([place] [employer] and U.S. Multi-Society Task Force). Cologuard performance data in a 10,000 patient pivotal study using colonoscopy as the reference method can be accessed at the following location: www.[employer]/results. Additional description of the Cologuard test process, warnings and precautions can be found at www.cologuard.com. Stool 12/26/2024 7:45 AM EST 12/27/2024 11:02 AM EST Tamika Zamora MD LAB MOLECULAR DIAG NOSTICS ORDERABLES Final Result Performing Organization Address City/State/[facility] Co de Phone Number [employer] [address] [place] [address] [place] [address] [facility] [address] [place] [address]. [place] [address] * MG Mammo Digital Screening w Gunnar bilat (10/30/2024 7:54 AM EST) Anatomical Region Laterality Modality Breast Bilateral Mammography 10/31/2024 11:1 0 AM EST Impressions 10/31/2024 11:20 AM EST 1. No mammographic evidence of malignancy 2. Heterogeneous breast parenchyma BI-RADS CATEGORY: 2 - BENIGN RECOMMENDATION: Screening bilateral mammogram is recommended in 1 year. Mammo Location: [facility], [address] [place] [address], [id number], . -------- FINAL REPORT -------- Dictated By: Juan Antonio Choe Dictated Date: 10/31/2024 11:10 ET Assigned Physician: Juan Antonio Choe Reviewed and Electronically Signed By: Juan Antonio Choe Signed Date: 10/31/2024 11:20 ET Workstation ID: [id number] Transcribed By: Self Edit Transcribed Date: 10/31/2024 11:10 ET Narrative 10/31/2024 11:20 AM EST A BILATERAL DIGITAL 3D SCREENING MAMMOGRAPHY HISTORY: Routine screening. ??No family history of breast cancer. COMPARISON: Multiple priors dating back to 09/30/2020 Technique: Bilateral full field digital mammography (3D) was performed using standard CC and MLO projections CAD ??was used to evaluate this mammogram. FINDINGS: Right: No suspicious masses, groups of microcalcification or areas of architectural distortion identified. Stable typically benign parenchymal asymmetries. Left: No suspicious masses, groups of microcalcification or areas of architectural distortion identified. Stable typically benign parenchymal asymmetries. BREAST DENSITY: C - The breasts are heterogeneously dense which may obscure small masses. Procedure Note Juan Antonio Choe MD - 10/31/2024 A BILATERAL DIGITAL 3D SCREENING MAMMOGRAPHY HISTORY: Routine screening. No family history of breast cancer. COMPARISON: Multiple priors dating back to 09/30/2020 Technique: Bilateral full field digital mammography (3D) was performedusing standard CC and MLO projections CAD was used to evaluate this mammogram. FINDINGS: Right: No suspicious masses, groups of microcalcification or areas ofarchitectural distortion identified. Stable typically benign parenchymalasymmetries. Left: No suspicious masses, groups of microcalcification or areas ofarchitectural distortion identified. Stable typically benign parenchymalasymmetries. BREAST DENSITY: C - The breasts are heterogeneously dense which mayobscure small masses. IMPRESSION: 1. No mammographic evidence of malignancy 2. Heterogeneous breast parenchyma BI-RADS CATEGORY: 2 - BENIGN RECOMMENDATION: Screening bilateral mammogram is recommended in 1 year. Mammo Location: [facility], [address] [place] [address], [id number], . -------- FINAL REPORT -------- Dictated By: Juan Antonio Choe Dictated Date: 10/31/2024 11:10 ET Assigned Physician: Juan Antonio Choe Reviewed and Electronically Signed By: Juan Antonio Choe Signed Date: 10/31/2024 11:20 ET Workstation ID: [id number] Transcribed By: Self Edit Transcribed Date: 10/31/2024 11:10 ET Tamika Zamora MD IMG BI PROCEDURES Final Result * Depression Screening (06/28/2024) Depression Screening abstracted Result [facility] Historical Provider HEALTH MAINTENANCE Final Result * (ABNORMAL) Lipid panel (01/20/2022) LDL/HDL Ratio 4 0 - 4 Triglycerides 255(A) 0 - 150 mg/dL Cholesterol 264(A) 0 - 200 mg/dL HDL 76 >=40 mg/dL LDL Cholesterol 137(A) 0 - 100 mg/dL Blood Venous blood specimen / Unknown Result [facility] Historical Provider LAB BLOOD ORDERABLES Vanessa l Result * Hepatitis C Screening (01/04/2014) Hepatitis C Screening abstracted Historical Provider HEALTH MAINTENANCE Final Result from Last 3 Months or Most Recently Relevant to Health Maintenance Insurance MEDICARE [facility] Care Teams Master In Chancery Relationship Specialty Start Date End Date Tamika Zamora MD [address] [place] [id number] PCP - General Internal Medicine 02/26/21
--- OUTSIDE RECORDS SUMMARY | 2025-02-28 08:35 | XMS_ITS | Encounter Summary ---
Author Organization [facility] Address [address] [place] [address] Care Team Providers Care Cam Maker Name Role Phone Tamika Ward MD Primary Care Prov ider Reason for Visit * Reason Onset Date Comments jury duty 02/08/2025 Encounter Details Date Type Department Care Team (Late st Contact Info) Description 02/08/2025 Telephone Adult Medicine - [place] [address] [place] [phone] Tamika Ward MD [address] [place] [address] jury duty Social History Tobacco Use Types Packs/Day Years [...] Orientation Straight 01/08/2025 6: 49 AM EST documented as of this encounter Progress Notes * Thao Muir MA - 02/15/2025 3:50 PM EDT Mailed letter to patients home address. * Tamika Ward MD - 02/15/2025 11:02 AM EDT Letter sent * Kaye Perry - 02/08/2025 12:45 PM EDT Patient is requesting a letter to not go to jury duty due to illness Badge# [phone] Pin # [id number] If any questions please call pt at [phone] Please call when letter is completed documented in this encounter Plan of Treatment Not on file documented as of this encounter Visit Diagnoses Not on filedocumented in this encounter Care Teams Cam Maker Relationship Specialty Start Date End Date Tamika Ward MD [address] [place] [id number] PCP - General Internal Medicine 02/26/21 documented as of this encounter
--- OUTSIDE RECORDS SUMMARY | 2025-02-28 08:35 | XMS_ITS | Data Portability ---
Author Organization [place] - [facility],, KATHY MAC MD Address [address] [address] Care Team Providers Care Oracle Fusion Middleware Architect Name Role Phone ANCHOR-CHLOE HERRERA Primary Care Provider [phone] Assessment No assessment recorded. Plan of Treatment Reminders Order Date Submit Date Provider Last Modified By Organization Details Last Modified Time Details Appointments None recorded. Lab urinalysi s, dipstick 2020 021 smacmillan 1 In-Office Order, Internal Use Only DO Not Attach Compendium DO Not Attach Compendium, Do Not Delete/merge, [id number] 1 13:00:50 culture, urine 2020 021 [facility], [address] [place], [address], 1 10:05:38 pap test, thinprep, cervical 2019 020 tmeczywor [facility], Cytopathology Service, [address] [place], [address], 0 07:38:33 urinalysi s, dipstick 2019 020 tmeczywor In-Office Order, Internal Use Only DO Not Attach Compendium DO Not Attach Compendium, Do Not Delete/merge, [id number] 0 07:38:33 culture, urine 2019 020 [facility], [address] [place], [address], 0 08:19:19 fecal occult blood, stool 2019 020 tmeczywor In-Office Order, Internal Use Only DO Not Attach Compendium DO Not Attach Compendium, Do Not Delete/merge, [id number] 0 07:38:32 urinalysi s, dipstick 2018 019 tmeczywor In-Office Order, Internal Use Only DO Not Attach Compendium DO Not Attach Compendium, Do Not Delete/merge, [id number] 9 11:51:59 culture, urine 2018 019 [place] [facility], [address] [place], [address], 9 12:58:29 Referral None recorded. Procedures None recorded. Surgeries None recorded. Imaging MAMMO, screening , digital, bilateral 2019 020 [facility] ([facility]), [address] [place], [address], 0 09:11:01 Medication Orders estradiol 1 mg tablet 2020 021 INTERFACE [facility], [address] [place] [address], [address], 1 13:54:38 progester one micronize d 200 mg capsule 2020 021 INTERFACE [facility], [address] [place] [address], [address], 1 13:54:38 nitrofura ntoin monohydra te/macroc rystals 100 mg capsule 2020 021 [email or web address] [facility], [address] [place] [address], [address], 1 13:42:05 fluconazo le 150 mg tablet 2020 021 [email or web address] [facility], [address] [place] [address], [address], 1 13:41:55 estradiol 0.01% (0.1 mg/gram) vaginal cream 2019 020 INTERFACE [facility], [address] [place] [address], [address], 0 08:53:45 triamcino lone acetonide 0.1 % topical cream 2019 [email or web address] [facility], [address] [place] [address], [address], 13:42:23 Patient TargetsNo targets recorded. Patient Instructions Encounter Date Encounter Id Patient Instructions Last Modified By Organization Details Last Modified Time 06/15/2019 [id number] urinary tract infection in women information Not available 06/15/2019 10:45:14 She is here for follow up after recent UTI, it took a while to clear but she finally feels as if her symptoms are fully resolved. She believes it may have started because, I had to hold my urine for too long. She had > 10 6th Klebsiella UTI on 05/09/19 and again cultured 06/01/19, had failed macrobid but then finally cured after 10 days of oral amoxicillin. She is adivsed to be sure to not hold urine for excessive amounts of time, and to urinate when she has first urge if possible. She is to call if symptoms recur at all. Check urine culture, though today dip is clean. Ways to prevent recurrent UTI discussed. All questions answered. Face to face discussion 25 minutes Not available 06/15/2019 10:48:41 09/04/2020 [id number] learning about healthy weight Not available 09/04/2020 08:53:42 urinary tract infection in women information Not available 09/04/2020 08:53:43 She is here for annual exam, has increased urinary frequency, requests a urine dip and culture. She is using the E2 cream 4 times a week, would like to go to every day. she notes that she has persistently been having several hot flashes a day, this is debilitating to her, I kept thinking it would go away but it's not getting any better. She would like to consider tkaing HRT, as her sister does. ____ note from 2019: She is here for annual exam, recently had a UTI, also needs a ZACK. She feels it is resolved. She continues to have increased frequency of urination, sometimes large amounts sometimes small, she urinated 20 to 30 times a day, and 3 times a night. She is gun shy because of prior problems with urologists, had a sling and mesh issues, she had a problem with the original mesh, and had to have it repaired in 2011 laparoscopically and vaginally. She is using E2 vaginal cream daily, and it is not improved. She has never tried oral pills. She is advised to follow up with a new urologist as she does not have oliverio in those she saw before. On exam, she has cutaneous monilia under breasts and under pannus, red, no skin breakdown. There is a similar color lesion of the mid lateral left abdominal wall, though not in a fold, circular: not certain what that might be, could be monilia by color and similarity to other lesions, or could be ? Adithya, advised to see janitorial account manager. RX Erika rodas for cutaenous monilia. She appears to be doing well. Continue E2 vaginal cream. Check urine culture for ZACK. She will contineu the E2 cream and the Aristocort. She will call for an HRT consult. Urine dip negative, check culture for symptoms. She appears to be doing well. She is advised to get 1500 mg of calcium daily into her diet and supplements combined. We discussed the benefits of adequate vitamin D supplementation to at least 400 units daily, daily aerobic exercise of 30 minutes, and stress reduction. Monthly self breast exam was taught, and stressed, and is advised to call if she discovers any new mass in the breast. Seat belt use for herself and passengers advised. The significant health benefits of becoming and remainig fit, with an optimal BMI, were also discussed. We discussed the potential reduction in chronic discomfort, the diminished risks of hypertension, diabetes, and heart disease with the proper weight management, and improved mobility as she ages. Strategies to reach and maintain her target weight wer discussed in detail, all questions answered. Not available 09/04/2020 08:54:19 12/20/2020 [id number] Urinary Tract Infection (UTI) in Women: Care Instructions Not available 12/20/2020 14:25:13 vaginal yeast infection: care instructions [facility] Not available 12/20/2020 14:25:14 This visit is a phone telehealth visit. The patient consented to the visit by phone. The patient was at home at the time of the call and the provider and patient were the only people on the line. I was at [address] [place] [address], at the time of the call. She is in quarantine for possible exposure to covid. She is very, very sore when she urinates, she also has vaginal pruritus. She tried Monistat OTC. She does not have frequency or urgency. She believes she has monilia and this seems reasonable. As it is Wednesday afternoon, will also call in rx macrobid, to hold on to in case the urinary symptoms get worse over the weekend. She will take one diflucan now and see how she feels over the next few days. Call if any questions. The patient was agreeable to this plan. She is aware of the limitations caused by the covid restrictions, and this phone call, but was appreciative of the efforts to complete the evaluation. Face to face discussion 30 minutes [facility] Not available 12/20/2020 14:27:31 01/17/2021 [id number] This visit is a phone telehealth visit. The patient consented to the visit by phone. The patient was at home at the time of the call and the provider and patient were the only people on the line. I was at [address] [place] [address], at the time of the call. She has had vasomotor symptoms since menopause, she is having severe hot flashes and night sweats, she has significant insomnia. ___ Note from 08/2020: She is here for annual exam, has increased urinary frequency, requests a urine dip and culture. She is using the E2 cream 4 times a week, would like to go to every day. she notes that she has persistently been having several hot flashes a day, this is debilitating to her, I kept thinking it would go away but it's not getting any better. She would like to consider tkaing HRT, as her sister does. We discussed having her begin to take hormone replacement therapy. We discussed the need to take a progestin if a uterus is present, and the rationale behind that. We discussed the stated risks of one in 10,000 of development of a blood clot/DVT/PE that could be life threatening. We discussed the Women's Health Initiative study and the findings. We discused the PEPPI study as well. She is aware that there are conflicting reports in the medical literature concerning the risks and benefits of HRT. We disussed that women are advised by ACOG to take HRT in the lowest dose necessary, and for the shortest time necessary, to control their symptoms. After a long discussion of the potential risks and benefits of HRT she elects to begin HRT. All questions answered. Rx for HRT is called in to the pharmacy. She is aware that she does not need to take a progestin, as she has had a hysterectomy, however she wants to try the natural progesterone to see if it helps her to stay asleep as this is a big problem for me. The patient was agreeable to this plan. She is aware of the limitations caused by the covid restrictions, and this phone call, but was appreciative of the efforts to complete the evaluation. Face to face discussion for 30 minutes. Not available 01/17/2021 13:59:32 04/09/2021 [id number] urinary tract infection in women information Not available 04/09/2021 13:00:50 She has had a few months of worsening dysuria. She feels like sometimes when the urine hits the skin of the vulva that she has small cuts that are quite painful. She has a past history of recurrent UTIs in 2017. She started using the Estrace vaginal cream and this improved dramatically, but then she stopped using it for a while. She picked it up on 09/15/20, and then again picked it up on 03/30/21. She has been using it daily for the past few months, she notes. She also uses triamcinolone for lichen sclerosis. She last picked it up on 09/15/20, 30 grams. She had been using it once a day but recently increased to twice a day. She has had headaches for years, she sees her PCP for this, has not seen a neurologist since she was a teenager. She wonders if it is sinus related, but she saw a ENT and he did not take her concerns seriously, she feels. She has to take medication regularly for this, although she notes that she has not taken Fioricet for a while as she is trying to cut back on it. Just in the past 4 months it appears that she has received 160 Fioricet ... She picked up 32 tabs on 03/30/21, 64 tabs on 02/02/21 (it appears from two different prescribers), 64 tabs on 12/20/20 (it appears for 2 different prescribers). Prescriptions for this go back to at least 2011. She has difficulty sleeping as well, noting that she sleeps fitfully, and only for a few hours nightly. We discussed that the fioricet has caffeine and that may be bothering her sleep. She notes that she is no longer taking the fioricet, but still having the insomnia issues. I asked her if she picked up the rx in March and she states that she did but that she is not using it, she just wanted to have it available in case she needed it. Her dysuria may be due to continued lichen sclerosis issues. She is advised to use the triamcinolone twice a day, and the estradiol vaginal cream daily. Based on how the medication has been picked up from the the pharmacy, she is perhaps not using it regularly, she will try to use it very regularly. Also she is advised to try RepHresh over the counter vaginally twice a week, to improve the vaginal pH. Also she is advised to try using Desitin on the skin of the vula, or to pour warm water over her vulva as she urinates, in order to try to improved the vulvar discomfort when the urine hits the skin If her symptoms do not improve in a month of doing all this then she is advise to return for a vulvar biopsy. She understands and agrees. When we discussed her years of fioricet use she becomes tearful. She feel that people are saying I'm abusing this but I'm not. I stressed to her that I am in no way being judgemental. I am trying to help her to find a resolution, as this seems to not be resolving her headache issues. She has not seen a neurologist for more than 4 decades, and treatments have changed in that time. I advised her to contact her PCP to see if she can get a referral to a neurologist. She actually feels her issues are sinus related, so I also advised her to have her PCP refer her to an ENT that may listen better than the last one did. She agrees that this is a reasonable plan, and she will talk to her new PCP, she has an appointment to do a telehealth with Dr. Ward upcoming. Her urine dip is unremarkable, check urine culture. Not available 04/09/2021 13:01:52 Reason for Referral None Reported. Results Created Date Observation Date Name Description Value Unit Range Abnormal Flag Note LastModifiedBy Organization Detail LastModifiedTime 09/04/20 20 09/04/2020 fecal occul t blood , stool Occult Blood negati ve Not Available In-Office Order Internal Use Only DO Not Attach Compendium DO Not Attach Compendium, Do Not Delete/merge, [id number] 09/04/2020 08:21:16 06/01/20 19 06/01/2019 fecal occul t blood , stool Occult Blood negati ve Not Available In-Office Order Internal Use Only DO Not Attach Compendium DO Not Attach Compendium, Do Not Delete/merge, [id number] 06/01/2019 09:43:53 06/01/2006/01/2019 cultu re, urine comments [facility] [address] [facility] [place] [address] Medic al Dire dirk flores MD [facility] E: URINE ,MARCOS N CATCH ; Not Available [facility] [address] [facility], [place], [address], 06/03/2019 08:22:04 06/01/20 19 06/02/2019 cultu re, urine urine culture [facility] how[facility], a [facility] [address] [place] [address] Medic al [facility] MD ALEXANDER Hutson CTION TIME: 2018 9:30: 00 AM -04:0 0 URINE CULTU RE KLEBS IELLA PNEUM O. SSP PNEUM O. ( KLEPS P ) F URINE CULTU RE COLON Y COUNT F URINE CULTU RE >100, 000 F Not Available [facility] [address] [place] [address], [address], 06/03/2019 08:22:04 06/01/20 19 06/01/2019 antib iotic sensi tivit y, isola te comments PAREN T ORGAN ISM: KLEBS IELLA PNEUM O. SSP PNEUM O. ( KLEPS P ) [facility] [address] [place] [address] Medic al [facility] dirk flores MD SOURC E: URINE ,MARCOS N CATCH ; Not Available [facility] [address] [place] [address], [address], 06/03/2019 08:22:12 06/01/20 19 06/02/2019 antib iotic sensi tivit y, isola te gram negative susceptibili ty [facility], [facility] [address] [place] [address] Medic al [facility] MD ALEXANDER Hutson CTION TIME: 2018 9:30: 00 AM -04:0 0 TRIME THOPR IM/JERNIGAN LFAME THOXA ZOLE <=20 S F AMOXI CILLI N/CLA VULAN IC ACID 4 S F AMPIC ILLIN >=32 R F AMPIC ILLIN /SULB ACTAM 16 I F CEFAZ KURT <=4 S F CEFTA ZIDIM E <=1 S F CEFTR IAXON E <=1 S F CEFEP DONTE <=1 S F CIPRO FLOXA BHANU <=0.2 5 S F ERTAP ENEM <=0.5 S F GENTA MICIN <=1 S F LEVOF LOXAC IN <=0.1 2 S F IMIPE NEM <=0.2 5 S F NITRO FURAN TOIN <=16 S F TOBRA MYCIN <=1 S F PIPER ACILL IN/TA ZOBAC HESS <=4 S F Not Available [facility] [address] [place], [address], 06/03/2019 08:22:12 06/01/20 19 06/01/2019 pap, LB [id number] ThinP rep Pap, Image d: NEGAT HOLLY FOR SQUAM OUS INTRA EPITH ELIAL LESIO N AND MALIG BLYANE . React holly cellu lar paola es. Lizzeth da is prese nt. Savannah Maloney , CT( CP) (Case Scregabrielle bethany 06 05 2019) Luan Soliz M.D. , Patho logis t (Case elect kirsten power nabor d 06 05 2019) ADEQU ACY: Satis facto ry . SOURC E: ThinP rep Pap HPV IF ASCUS , Vagin al, Image d CLINI MYRIAM INFOR MATIO N: HPV If Diagn osis of ASCUS . Z12.4 , HYSTE RECTO MY, NO CERVI X, LPS = NEG Not Available [facility], Cytopathology Service [address] [place], [address], 06/06/2019 14:53:45 06/01/2006/01/2019 urina lysis , dipst ick GLU Negati ve Not Available In-Office Order Internal Use Only DO Not Attach Compendium DO Not Attach Compendium, Do Not Delete/merge, [id number] 06/01/2019 09:31:27 06/01/20 19 06/01/2019 urina lysis , dipst ick TERRENCE Negati ve Not Available In-Office Order Internal Use Only DO Not Attach Compendium DO Not Attach Compendium, Do Not Delete/merge, [id number] 06/01/2019 09:31:27 06/01/20 19 06/01/2019 urina lysis , dipst ick KET Negati ve Not Available In-Office Order Internal Use Only DO Not Attach Compendium DO Not Attach Compendium, Do Not Delete/merge, 06/01/2019 09:31:27 06/01/20 19 06/01/2019 urina lysis , dipst ick SG 1.015 Not Available In-Office Order Internal Use Only DO Not Attach Compendium DO Not Attach Compendium, Do Not Delete/merge, 06/01/2019 09:31:27 06/01/20 19 06/01/2019 urina lysis , dipst ick BLO Negati ve Not Available In-Office Order Internal Use Only DO Not Attach Compendium DO Not Attach Compendium, Do Not Delete/merge, 06/01/2019 09:31:27 06/01/20 19 06/01/2019 urina lysis , dipst ick pH 7.0 Not Available In-Office Order Internal Use Only DO Not Attach Compendium DO Not Attach Compendium, Do Not Delete/merge, 06/01/2019 09:31:27 06/01/20 19 06/01/2019 urina lysis , dipst ick PRO Negati ve Not Available In-Office Order Internal Use Only DO Not Attach Compendium DO Not Attach Compendium, Do Not Delete/merge, 06/01/2019 09:31:27 06/01/20 19 06/01/2019 urina lysis , dipst ick URO 0.2 E.U. / dl Not Available In-Office Order Internal Use Only DO Not Attach Compendium DO Not Attach Compendium, Do Not Delete/merge, 06/01/2019 09:31:27 06/01/20 19 06/01/2019 urina lysis , dipst ick NIT negati ve Not Available In-Office Order Internal Use Only DO Not Attach Compendium DO Not Attach Compendium, Do Not Delete/merge, 06/01/2019 09:31:27 06/01/2006/01/2019 urina lysis , dipst ick HARINI Small Not Available In-Office Order Internal Use Only DO Not Attach Compendium DO Not Attach Compendium, Do Not Delete/merge, 06/01/2019 09:31:27 06/15/2006/15/2019 cultu re, urine comments [facility] [address] [place] [address] Medic al [facility] dirk flores MD SOURC E: URINE ,MARCOS N CATCH ; Not Available [facility] [address] [place] [address], [address], 06/16/2019 12:58:29 06/15/20 19 06/16/2019 cultu re, urine urine culture [facility] [address] [facility] [place] [address] Medic al [facility] dirk flores MD COLLE CTION TIME: 019 8:30: 00 AM -04:0 0 URINE CULTU RE <10,0 00 CFU/m L F URINE CULTU RE GRAM POSIT HOLLY COCCI and GRAM NEGAT HOLLY BACIL LI F Not Available [facility] [address] [place] [address], [address], 06/16/2019 12:58:29 06/15/2006/15/2019 urina lysis , dipst ick GLU Negati ve Not Available In-Office Order Internal Use Only DO Not Attach Compendium DO Not Attach Compendium, Do Not Delete/merge, [id number] 06/15/2019 08:43:46 06/15/2006/15/2019 urina lysis , dipst ick TERRENCE Negati ve Not Available In-Office Order Internal Use Only DO Not Attach Compendium DO Not Attach Compendium, Do Not Delete/merge, [id number] 06/15/2019 08:43:46 06/15/2006/15/2019 urina lysis , dipst ick KET Negati ve Not Available In-Office Order Internal Use Only DO Not Attach Compendium DO Not Attach Compendium, Do Not Delete/merge, [id number] 06/15/2019 08:43:46 06/15/2006/15/2019 urina lysis , dipst ick SG 1.015 Not Available In-Office Order Internal Use Only DO Not Attach Compendium DO Not Attach Compendium, Do Not Delete/merge, [id number] 06/15/2019 08:43:46 06/15/20 19 06/15/2019 urina lysis , dipst ick BLO Negati ve Not Available In-Office Order Internal Use Only DO Not Attach Compendium DO Not Attach Compendium, Do Not Delete/merge, [id number] 06/15/2019 08:43:46 06/15/20 19 06/15/2019 urina lysis , dipst ick pH 5.0 Not Available In-Office Order Internal Use Only DO Not Attach Compendium DO Not Attach Compendium, Do Not Delete/merge, [id number] 06/15/2019 08:43:46 06/15/20 19 06/15/2019 urina lysis , dipst ick PRO Negati ve Not Available In-Office Order Internal Use Only DO Not Attach Compendium DO Not Attach Compendium, Do Not Delete/merge, [id number] 06/15/2019 08:43:46 06/15/20 19 06/15/2019 urina lysis , dipst ick URO 0.2 E.U. / dl Not Available In-Office Order Internal Use Only DO Not Attach Compendium DO Not Attach Compendium, Do Not Delete/merge, [id number] 06/15/2019 08:43:46 06/15/20 19 06/15/2019 urina lysis , dipst ick NIT negati ve Not Available In-Office Order Internal Use Only DO Not Attach Compendium DO Not Attach Compendium, Do Not Delete/merge, [id number] 06/15/2019 08:43:46 06/15/20 19 06/15/2019 urina lysis , dipst ick HARINI Negati ve Not Available In-Office Order Internal Use Only DO Not Attach Compendium DO Not Attach Compendium, Do Not Delete/merge, [id number] 06/15/2019 08:43:46 09/04/20 20 09/04/2020 cultu re, urine comments [facility] [address] [facility] [place] [address] Medic al Direc dirk flores MD SOUR E: URINE ,MARCOS N CATCH ; Not Available [facility] [address] [facility], [place], [address], 09/05/2020 08:19:19 09/04/20 20 09/05/2020 cultu re, urine urine culture [facility], a [facility] of [facility] [address] [facility] [place] [address] Medic al Direc MD ALEXANDER HutsonION TIME: 09/04 8:30: 00 AM -04:0 0 URINE CULTU RE No growt h F Not Available [facility] [address] [place], [address], 09/05/2020 08:19:19 09/04/20 20 09/04/2020 pap, LB [id number] ThinP rep Pap, Image d: NEGAT HOLLY FOR SQUAM OUS INTRA EPITH ELIAL LESIO N AND MALIG BLAYNE . Savannah Maloney , CT( CP) (Case elect johnlester [place] 09 06 2020) ADEQU ACY: Satis facto ry . SOURC E: ThinP rep Pap HPV IF ASCUS , Vagin al, Image d CLINI MYRIAM INFOR MATIO N: HPV If Diagn osis of ASCUS . lps neg, z12.4 , z01.4 19 Not Available [facility], Cytopathology Service [address] [place], [address], 09/06/2020 12:26:07 09/04/20 20 09/04/2020 urina lysis , dipst ick GLU Negati ve Not Available In-Office Order Internal Use Only DO Not Attach Compendium DO Not Attach Compendium, Do Not Delete/merge, [id number] 09/04/2020 08:28:19 09/04/20 20 09/04/2020 urina lysis , dipst ick TERRENCE Negati ve Not Available In-Office Order Internal Use Only DO Not Attach Compendium DO Not Attach Compendium, Do Not Delete/merge, [id number] 09/04/2020 08:28:19 09/04/20 20 09/04/2020 urina lysis , dipst ick KET Negati ve Not Available In-Office Order Internal Use Only DO Not Attach Compendium DO Not Attach Compendium, Do Not Delete/merge, [id number] 09/04/2020 08:28:19 09/04/20 20 09/04/2020 urina lysis , dipst ick SG 1.010 Not Available In-Office Order Internal Use Only DO Not Attach Compendium DO Not Attach Compendium, Do Not Delete/merge, [id number] 09/04/2020 08:28:19 09/04/20 20 09/04/2020 urina lysis , dipst ick BLO Negati ve Not Available In-Office Order Internal Use Only DO Not Attach Compendium DO Not Attach Compendium, Do Not Delete/merge, [id number] 09/04/2020 08:28:19 09/04/20 20 09/04/2020 urina lysis , dipst ick pH 6.0 Not Available In-Office Order Internal Use Only DO Not Attach Compendium DO Not Attach Compendium, Do Not Delete/merge, [id number] 09/04/2020 08:28:19 09/04/20 20 09/04/2020 urina lysis , dipst ick PRO Negati ve Not Available In-Office Order Internal Use Only DO Not Attach Compendium DO Not Attach Compendium, Do Not Delete/merge, [id number] 09/04/2020 08:28:19 09/04/20 20 09/04/2020 urina lysis , dipst ick URO 0.2 E.U. / dl Not Available In-Office Order Internal Use Only DO Not Attach Compendium DO Not Attach Compendium, Do Not Delete/merge, [id number] 09/04/2020 08:28:19 09/04/20 20 09/04/2020 urina lysis , dipst ick NIT negati ve Not Available In-Office Order Internal Use Only DO Not Attach Compendium DO Not Attach Compendium, Do Not Delete/merge, [id number] 09/04/2020 08:28:19 09/04/20 20 09/04/2020 urina lysis , dipst ick HARINI Negati ve Not Available In-Office Order Internal Use Only DO Not Attach Compendium DO Not Attach Compendium, Do Not Delete/merge, [id number] 09/04/2020 08:28:19 04/09/20 21 04/09/2021 cultu re, urine comments [facility] [address] [place] [address] Medic al [facility] dirk flores MD SOURC E: URINE ,MARCOS N CATCH ; Not Available [facility] [address] [place] [address], [id number], 04/10/2021 10:05:38 04/09/20 21 04/10/2021 cultu re, urine urine culture [facility], a mem[facility] of [facility] [address] [facility] [place] [address] Medic al [facility] dirk flores MD COLLE CTION TIME: 10:00 :00 AM -04:0 0 URINE CULTU RE No growt h F Not Available [facility] [address] [place] [address], [id number], 04/10/2021 10:05:38 04/09/20 21 04/09/2021 urina lysis , dipst ick GLU Negati ve Not Available In-Office Order Internal Use Only DO Not Attach Compendium DO Not Attach Compendium, Do Not Delete/merge, [id number] 04/09/2021 10:06:35 04/09/20 21 04/09/2021 urina lysis , dipst ick TERRENCE Negati ve Not Available In-Office Order Internal Use Only DO Not Attach Compendium DO Not Attach Compendium, Do Not Delete/merge, [id number] 04/09/2021 10:06:35 04/09/20 21 04/09/2021 urina lysis , dipst ick KET Negati ve Not Available In-Office Order Internal Use Only DO Not Attach Compendium DO Not Attach Compendium, Do Not Delete/merge, [id number] 04/09/2021 10:06:35 04/09/20 21 04/09/2021 urina lysis , dipst ick SG 1.015 Not Available In-Office Order Internal Use Only DO Not Attach Compendium DO Not Attach Compendium, Do Not Delete/merge, [id number] 04/09/2021 10:06:35 04/09/20 21 04/09/2021 urina lysis , dipst ick BLO Negati ve Not Available In-Office Order Internal Use Only DO Not Attach Compendium DO Not Attach Compendium, Do Not Delete/merge, [id number] 04/09/2021 10:06:35 04/09/20 21 04/09/2021 urina lysis , dipst ick pH 6.5 Not Available In-Office Order Internal Use Only DO Not Attach Compendium DO Not Attach Compendium, Do Not Delete/merge, [id number] 04/09/2021 10:06:35 04/09/20 21 04/09/2021 urina lysis , dipst ick PRO Negati ve Not Available In-Office Order Internal Use Only DO Not Attach Compendium DO Not Attach Compendium, Do Not Delete/merge, 04/09/2021 10:06:35 04/09/20 21 04/09/2021 urina lysis , dipst ick URO 0.2 E.U. / dl Not Available In-Office Order Internal Use Only DO Not Attach Compendium DO Not Attach Compendium, Do Not Delete/merge, [id number] 04/09/2021 10:06:35 04/09/20 21 04/09/2021 urina lysis , dipst ick NIT negati ve Not Available In-Office Order Internal Use Only DO Not Attach Compendium DO Not Attach Compendium, Do Not Delete/merge, [id number] 04/09/2021 10:06:35 04/09/20 21 04/09/2021 urina lysis , dipst ick HARINI Negati ve Not Available In-Office Order Internal Use Only DO Not Attach Compendium DO Not Attach Compendium, Do Not Delete/merge, [id number] 04/09/2021 10:06:35 10/01/20 20 09/30/2020 MAMMO , scree galindo, digit al, bilat eral No observ ation record ed. Not Available 09/09 10:02:49 Result Notes None recorded. Problems Name Problem SNOMED Code Status Onset Date Resolution Date Notes Provider Name and Address Organization Details Recorded Time Lichen sclerosus et atrophicus Active Kathy Mac MD [address] [facility], [address], [place], [address] , [place] [facility], 6 10:38:18 Candidal vulvovagin itis 15624393 Active Kathy Mac MD [address], [place], [address], [place] - [facility], 6 11:16:16 Dysuria 70198593 Active MD Danilo Garsia,[address], [place], [address], [place] - [facility], 6 10:38:18 Acute lower urinary tract infection 539303931 Active 01/2018: She was having recurrent UTI in 2016, began using the Estrace vaginal cream regularly and the UTIs resolved, she stopped the cream 4 months ago and is now having recurrent UTI again. 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 Kathy Mac MD [address], [place], [address], [place] - [facility], 6 10:38:18 Menopausal syndrome 776215493 Active MD Danilo Garsia,[address], [place], [address], [place] - [facility], 6 10:38:18 Vaginal wall prolapse 005935946 Active Kathy Mac MD [address], [place], [address], [place] - [facility], 6 10:38:18 Recurrent urinary tract infection 576972273 Active 2017 Kathy Mac MD [address], [place], [address], [place] - [facility], 8 08:34:11 Candidiasi s of skin 97052562 Active 2018 Kathy Mac MD [address], [place], [address], [place] - [facility], 9 10:10:38 Problem Notes None recorded. Procedures Surgical History Date Name Laterality Status Provider Name and Address Organization Details Recorded Time 04/01/20 21 procedure on knee completed Tequial Mosley [place] - [facility], 04/09/2021 10:05:05 10/13/20 18 Hernia repair w/mesh completed Malini Irvin [place] - [facility], 05/09/2019 13:40:35 05/10/20 17 Other completed Tequila Mosley [place] - [facility], 01/14/2018 10:13:37 05/08/20 15 Other completed Tequila Mosley [place] - [facility], 12/18/2015 08:52:00 02/28/20 14 Other completed Malini Irvin [place] - [facility], 04/10/2014 08:10:20 08/08/20 12 Hernia repair w/mesh completed Kathy Mac MD [address], [place], [address], [place] - [facility], 01/03/2013 10:21:46 02/07/20 11 Other completed Kathy Mac MD [address], [place], [address], [place] - [facility], 01/03/2013 10:21:26 11/08/18 87 Hysterectomy completed Kathy Mac MD [address], [place], [address], [place] - [facility], 01/03/2013 09:34:42 Imaging Results Imaging Date Name Status [facility] Details LastModified Time 09/30/2020 MAMMO, screening, digital, bilateral completed Information not available 10/01/2020 10:02:49 Procedure Notes None recorded. Medical Equipment None Reported. Allergies No known drug allergies Medications Name Sig Start Date Stop Date Status Note LastModified by Organization Details LastModified Time oxybutynin tab 5mg er active Not Available Not Available N ot Available eszopiclone 3 mg tabs active Not Available Not Available No t Available oxycodone hcl 5 mg tabs active Not Available Not Available Not Available premarin vag cre 0.625mg active Not Available Not Available Not Available estradiol tab 1mg active Not Available Not Available Not Available butalbital/ acetaminoph en/caffeine 50-325-40 mg tabs active Not Available Not Available Not Available fluticasone spr 50mcg active Not Available Not Available No t Available clotrimazol e/betametha sone dipropionat e 1-0.05 % crea active Not Available Not Available Not Available eszopiclone 2 mg tabs 01/01 completed Not Available Not Available Not Available sumatriptan tab 50mg active Not Available Not Available Not Available oxycodone tab 5mg active Not Available Not Available Not Available estrace 0.1 mg/gm crea active Not Available Not Available N ot Available hydroxyzine pamoate 25 mg caps active Not Available Not Available Not Available zolpidem tab 10mg active Not Available Not Available Not Available topiramate tab 25mg active Not Available Not Available Not Available ibuprofen 600 mg tabs 01/14 completed Not Available Not Available Not Available cephalexin cap 500mg active Not Available Not Available No t Available trazodone hcl 50 mg tabs active Not Available Not Available Not Available triamcinolo ne acetonide 0.1 % oint active Not Available Not Available N ot Available but/apap/ca f tab active Not Available Not Available Not Available amoxicillin 500 mg capsule TAKE 4 CAPSULES BY MOUTH 1 HOUR PRIOR TO DENTAL APPOINTME NT active Not Available Not Available No t Available Mapap Extra Strength 500 mg tablet TAKE ONE TABLET BY MOUTH THREE TIMES A DAY 09/04 completed Not Available Not Available Not Available prednisone 10 mg tablet 01/14 completed Not Available Not Available Not Available paroxetine 10 mg tablet active Not Available Not Available Not Available trazodone 50 mg tablet 01/01 completed Not Available Not Available Not Available fluconazole 150 mg tablet TAKE ONE TABLET BY MOUTH AT BEDTIME FOR 1 DAY 01/17 completed Not Available Not Available Not Available meloxicam 15 mg tablet 01/14 completed Not Available Not Available Not Available prednisone 20 mg tablet 09/04 completed Not Available Not Available Not Available sumatriptan 50 mg tablet TAKE ONE TABLET BY MOUTH EVERY DAY NEEDED FOR HEADACHE, MAY REPEAT DOSE AFTER 2 HOURS IF TABLET NOT EFFECTIVE 04/09 completed Not Available Not Available Not Available sulindac 150 mg tablet 01/01 completed Not Available Not Available Not Available topiramate 25 mg tablet active Not Available Not Available Not Available metronidazo le 500 mg tablet active Not Available Not Available Not Available hydroxyzine HCl 50 mg tablet 09/04 completed Not Available Not Available Not Available acetaminoph en 300 mg-codeine 30 mg tablet 01/01 completed Not Available Not Available Not Available doxepin 10 mg capsule TAKE ONE CAPSULE BY MOUTH AT BEDTIME 04/09 completed Not Available Not Available Not Available sulfamethox azole 800 mg-trimetho prim 160 mg tablet TAKE ONE TABLET BY MOUTH EVERY 12 HOURS FOR 7 DAYS 05/09 completed Not Available Not Available Not Available peg-electro lyte solution 420 gram oral solution active Not Available Not Available Not Available tramadol 50 mg tablet TAKE ONE TABLET BY MOUTH EVERY 6 HOURS NEEDED FOR PAIN 04/09 completed Not Available Not Available Not Available triamcinolo ne acetonide 0.1 % topical cream APPLY ONE APPLICATI ON TOPICALLY TWICE A DAY NEEDED active Not Available Not Available No t Available butalbital- acetaminoph en-caffeine 50 mg-325 mg-40 mg tablet TAKE 1-2 TABLETS BY MOUTH DAILY NEEDED FOR HEADACHE active Not Available Not Available No t Available amoxicillin 500 mg tablet Take 1 tablet every 8 hours by oral route for 7 days. 01/01 completed Not Available Not Available Not Available nortriptyli ne 25 mg capsule TAKE ONE TO TWO CAPSULES BY MOUTH AT BEDTIME NEEDED 05/09 completed Not Available Not Available Not Available hydromorpho ne 2 mg tablet ONE OR TWO TABLETS EVERY FOUR TO SIX HOURS..DO NOT DRIVE WHILE ON THIS MEDICATIO N. 01/14 completed Not Available Not Available Not Available lorazepam 0.5 mg tablet 01/01 completed Not Available Not Available Not Available estradiol 1 mg tablet TAKE ONE TABLET BY MOUTH EVERY DAY active Not Available Not Available No t Available DOK 100 mg capsule TAKE ONE CAPSULE BY MOUTH TWICE A DAY 05/09 completed Not Available Not Available Not Available trazodone 100 mg tablet TAKE ONE AND ONE-HALF TABLETS BY MOUTH EVERY DAY AT BEDTIME active Not Available Not Available No t Available ropinirole 0.25 mg tablet TAKE 1 TABLET BY MOUTH EVERY DAY 1 HOUR BEFORE BEDTIME. IF NOT EFFECTIVE AFTER 3 DAYS, YOU MAY INCREASE TO 2 PILLS AT BEDTIME. active Not Available Not Available No t Available benzonatate 100 mg capsule TAKE ONE CAPSULE BY MOUTH THREE TIMES A DAY NEEDED FOR COUGH FOR UP TO 7 DAYS 05/09 completed Not Available Not Available Not Available cephalexin 500 mg capsule TAKE ONE CAPSULE BY MOUTH TWICE A DAY 01/14 completed Not Available Not Available Not Available hyoscyamine sulfate 0.125 mg tablet active Not Available Not Available Not Available Cipro 500 mg tablet Take 1 tablet every 12 hours by oral route for 5 days. 05/09 completed Not Available Not Available Not Available nitrofurant oin macrocrysta l 100 mg capsule TAKE ONE CAPSULE BY MOUTH TWICE A DAY FOR 7 DAYS 01/17 completed Not Available Not Available Not Available triamcinolo ne acetonide 0.1 % topical ointment APPLY A THIN LAYER TO AFFECTED AREA TWICE A DAY active Not Available Not Available No t Available clotrimazol e-betametha sone 1 %-0.05 % topical cream APPLY TO AFFECTED AREA TWICE A DAY FOR 10 DAYS 01/01 completed Not Available Not Available Not Available ranitidine 300 mg capsule TAKE ONE CAPSULE BY MOUTH AT BEDTIME 09/04 completed Not Available Not Available Not Available oxycodone 5 mg capsule TAKE ONE CAPSULE BY MOUTH EVERY 4 HOURS NEEDED 05/09 completed Not Available Not Available Not Available progesteron e micronized 200 mg capsule TAKE ONE CAPSULE BY MOUTH AT BEDTIME active Not Available Not Available No t Available oxybutynin chloride ER 5 mg tablet,exte nded release 24 hr active Not Available Not Available Not Available hydroxyzine HCl 25 mg tablet 01/01 completed Not Available Not Available Not Available morphine ER 15 mg tablet,exte nded release 01/14 completed Not Available Not Available Not Available zaleplon 10 mg capsule TAKE ONE CAPSULE BY MOUTH AT BEDTIME. IF NOT HELPFUL AFTER 7 DAYS, CAN GO UP TO 2 PILLS 01/17 completed Not Available Not Available Not Available nystatin 100,000 unit/gram topical powder APPLY TO THE AFFECTED AREA(S) BY TOPICAL ROUTE 2 TIMES PER DAY 09/04 completed Not Available Not Available Not Available azelastine 137 mcg (0.1 %) nasal spray active Not Available Not Available Not Available Cheratussin AC 10 mg-100 mg/5 mL oral liquid 01/14 completed Not Available Not Available Not Available ibuprofen 600 mg tablet active Not Available Not Available Not Available estradiol 0.01% (0.1 mg/gram) vaginal cream INSERT 0.5 GMS EVERY DAY BY VAGINAL ROUTE AT BEDTIME active Not Available Not Available No t Available zolpidem 10 mg tablet active Not Available Not Available No t Available albuterol sulfate HFA 90 mcg/actuati on aerosol inhaler INHALE TWO PUFFS INTO THE LUNGS EVERY 4 HOURS NEEDED FOR COUGH OR WHEEZING 01/17 completed Not Available Not Available Not Available doxycycline hyclate 100 mg tablet 01/01 completed Not Available Not Available Not Available naproxen 500 mg tablet active Not Available Not Available Not Available amoxicillin 875 mg-potassiu m clavulanate 125 mg tablet 09/04 completed Not Available Not Available Not Available oxycodone 5 mg tablet TKAE 1-2 TABLETS BY MOUTH EVERY 4-6 HOURS NEEDED FOR PAIN active Not Available Not Available No t Available hydroxyzine pamoate 25 mg capsule TAKE 1 CAPSULE BY MOUTH AT BEDTIME. active Not Available Not Available No t Available escitalopra m 10 mg tablet 01/14 completed Not Available Not Available Not Available Jantoven 1 mg tablet 05/09 completed Not Available Not Available Not Available nitrofurant oin monohydrate /macrocryst als 100 mg capsule Take 1 capsule twice a day by oral route for 7 days. 01/17 completed Not Available Not Available Not Available eszopiclone 3 mg tablet TAKE ONE TABLET BY MOUTH AT BEDTIME NEEDED FOR IMSOMNIA 06/01 completed Not Available Not Available Not Available eszopiclone 2 mg tablet active Not Available Not Available Not Available ramelteon 8 mg tablet TAKE ONE TABLET BY MOUTH AT BEDTIME 09/04 completed Not Available Not Available Not Available Tylenol prn active Not Available Not Avail able Not Available Vitamin D3 active Not Available Not Av ailable Not Available collagen (bovine) active Not Available Not Available Not Available Probiotic active Not Available Not Eleanor ilable Not Available Belsomra 10 mg tablet TAKE ONE TABLET BY MOUTH AT BEDTIME 01/01 completed Not Available Not Available Not Available Narcan 4 mg/actuatio n nasal spray ADMINISTE R A SINGLE SPRAY OF NALOXONE IN ONE NOSTRIL. REPEAT AFTER 3 MINUTES IF NO OR MINIMAL RESPONSE. (DISPENSE D PER STANDING ORDER) active Not Available Not Available No t Available Shingrix (PF) 50 mcg/0.5 mL intramuscul ar suspension, kit VACCINATI ON ADMINISTE RED BY PHARMACIS T active Not Available Not Available No t Available Flucelvax Quad [id number] (PF) 60 mcg (15 mcg x 4)/0.5 mL IM syringe VACCINATI ON ADMINISTE RED BY PHARMACIS T active Not Available Not Available No t Available Afluria Qd 2019- (36 mos up)(PF)60 mcg (15 mcg x4)/0.5 mL IM syringe VACCINATI ON ADMINISTE RED BY PHARMACIS T active Not Available Not Available No t Available Vitals Date Recorded Body height Heart rate Body mass index (BMI) Body weight Systolic blood pressure Diastolic blood pressure Provider Name and Address Organization Details Last Updated DateTime 9 151.77 cm 81 /min 23.6 kg/m2 79692.0 8 g 108 mm[Hg] 67 mm[Hg] Malini Irvin [place] - [facility], 9 08:42:16 Date Recorded Body weight Body mass index (BMI) Body height Body temperature Heart rate Systolic blood pressure Diastolic blood pressure Provider Name and Address Organization Details Last Updated DateTime 0 94170.4 3 g 23.5 kg/m2 149.86 cm 97.5 [degF] 84 /min 119 mm[Hg] 80 mm[Hg] Tequila Mosley [place] - [facility], 0 08:21:45 Date Recorded Body height Provider Name an d Address Organization Details Last Updated DateTime 01/17/2021 149.86 cm Yolis Mancini [place] - [facility], 01/17/2021 13:41:09 Date Recorded Body height Body mass index (BMI) Body weight Body temperature Heart rate Systolic blood pressure Diastolic blood pressure Provider Name and Address Organization Details Last Updated DateTime 1 149.86 cm 22.9 kg/m2 75542.6 6 g 97 [degF] 85 /min 110 mm[Hg] 69 mm[Hg] Tequila Melany [place] - [facility], 1 10:03:36 Social History Question Answer Notes LastModified by Organizat ion Details LastModified Time Tobacco Smoking Status Former Smoker quit 30 yrs ago Not Available [employer] 09/10/2020 03:19:42 What Is Your Level Of Alcohol Consumption? Occasional [id number] Information not available 09/10/2020 What Is Your Level Of Caffeine Consumption? None [id number] Information not available 09/10/2020 What Type Of Diet Are You Following? REGULAR [id number] Information not available 09/10/2020 Which Illicit Or Recreational Drugs Have You Used? No [id number] Information not available 09/10/2020 Do You Reside In Or Have You Traveled To An Area Where Ebola Virus Transmission Is Active? No [id number] Information not available 09/10/2020 Do You Or Have You Ever Used E-cigarettes Or Vape? 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 8 Information not available 01/14/2018 High Number Of Sexual Partners No Information not available 06/09/2016 To Which Gender Do You Self-identify? Female Information not available 06/09/2016 Marital Status Informatio n not available 01/03/2013 What Was The Date Of Your Most Recent Tobacco Screening? 01/17/2021 [email or web address] Information not available 01/17/2021 Are You Sexually Active? No Information not available 09/04/2020 Do You Or Have You Ever Used Smokeless Tobacco? Never Used Smokeless Tobacco Information not available 04/09/2021 How Much Tobacco Do You Smoke? No [id number] Information not available 09/10/2020 General Stress Level Medium Information not available 10/25/2014 How Many Years Have You Smoked Tobacco? 12 [id number] Information not available 09/10/2020 Have You Recently (within The Last 12 Weeks, Or During A Current ) Traveled To Or Lived In A Zika-affected Area? No [email or web address] Information not available 01/01/2017 Sex: Female Functional Status Question Answer Note LastModified by Organization D etails LastModified Time What is your exercise level? Moderate [id number] Information not available 09/10/2020 Mental Status None recorded. Family History Relationship Description Onset Age of this Age Resolved Age Notes LastModified by Organization Details LastModified Time Father Alzheimer's disease Not available 03/08 10:35:13 Mother Asthma Not availabl e 03/25/2016 10:35:13 Mother Substance abuse previo usly record ed as Alcoho l/Subs tance Abuse Not available 03/25/2016 10:35:13 Medical History Condition Response Anesthesia complications N High Blood Pressure N Candidate for MyRisk panel N Autoimmune Condition N Depression N Lung Disease N Defects or Inherited Disease N History of Ovarian Cancer N BRCA testing in past N Anxiety Disorder N Arthritis Y Infertility N History of Cancer N Endometriosis N Kidney or Bladder Problems Y Thyroid Problems N GI Problems Y Anemia N History of Breast Cancer N HOWARD exposure N Osteopenia N Psychiatric Illness N Diabetes N Headaches or Migraines Y Asthma N Hepatitis N Heart Disease N Hypertension N Osteoporosis N Gynecological History Statement/Question Response Menses Monthly N If Post Menopausal, Age at Menopause 28 Age at Menarche 14 Age at First Child 21 Most Recent Bone Density Hormone Replacement Therapy N Obstetrics History GPAL:G 3 P 3 0 0 3 Type Value Full Term 3 Living 3 Total 3 Immunizations Vaccine Type Date Status Note Provider Nam e and Address Organization Details Recorded Time Influenza, split virus, trivalent, preservative 2 completed Kathy Mac MD [address] [facility],[address], [place], [address], [place] - [facility], 01/03/2013 09:34:42 Tdap 3 completed Tequila Taishajerodspencer dk [place] - [facility], 01/03/2013 09:07:00 Influenza, split virus, trivalent, preservative 3 completed Malini root [place] - [facility], 04/10/2014 08:09:01 Influenza, split virus, quadrivalent, preservative 4 completed Malini root [place] [facility], 09/27/2014 09:22:18 Influenza, split virus, trivalent, preservative 5 completed Tequilaangel Stokesmacrelaspencer dk [place] - [facility], 12/18/2015 08:52:00 influenza, unspecified formulation 6 completed Malini Caldwellesther dk [place] - [facility], 01/01/2017 08:48:33 Influenza, split virus, quadrivalent, preservative 8 completed Malini Alyssaemeliaesther root [place] [facility], 05/09/2019 13:39:08 Influenza, split virus, quadrivalent, preservative 0 completed Tequilaangel Mosley dk [place] - [facility], 09/04/2020 08:26:56 Past Encounters Encounter ID Performer Location Encounter Start Date Encounter Closed Date Diagnosis/Indication Diagnosis SNOMED-CT Code Diagnosis ICD10 Code Diagnosis Note [id number] Malini MAC MD [address] [facility] [place] [address] 01/03/2013 08:41:17 01/03/2013 15:41:19 [id number] Malini MAC MD [address] [facility] [place] [address] 04/10/2014 07:54:52 04/10/2014 09:52:01 Specialized medical examination [id number] Screening mammography 36127040 Lichen scl erosus et atrophicus 18517641 [id number] Tequila MAC MD [address] [facility] [place] [address] 09/27/2014 09:07:30 09/27/2014 11:01:44 Candidal vulvovaginitis 94922961 Dysuria 63813965 Atrophic vulvovaginitis 01882377 [id number] Malini Irvin KATHY MAC MD [address] [place] [address],[facility] [place] [address] 10/25/2014 08:38:48 10/25/2014 13:02:34 Lichen sclerosus et atrophicus 87279857 Atrophic vulvovaginitis 51843644 Vaginal wall prolapse 275373867 Dysuria [id number] MD KATHY Garsia MD [address] [place] [address],[facility] [place] [address] 12/18/2015 08:42:49 12/18/2015 10:27:02 Specialized medical examination [id number] Z01.419 Screening for malignant neoplasm of rectum [id number] Z12.12 Screening mammography 24 803832 Z12.31 [id number] MD KATHY Garsia MD [address] [place] [address] [place] [address] 03/17/2016 08:05:52 03/17/2016 13:08:02 Acute lower urinary tract infection [id number] R30.0 Lichen scl erosus et atrophicus 54438012 L90.0 [id number] MD KATHY Garsia MD [address] [place] [address],[facility] Stephanie [place] [address] 03/25/2016 08:09:08 03/25/2016 11:27:44 Acute lower urinary tract infection [id number] R30.0 [id number] MD KATHY Garsia MD [address] [place] [address],[facility] [place] [place] [address] 06/09/2016 13:19:33 06/09/2016 15:02:07 Acute lower urinary tract infection [id number] R30.0 [id number] MD KATHY Garsia MD [address] [place] [address],[facility] [place] [address] 01/01/2017 08:20:33 01/01/2017 11:37:45 Screening mammography 01754525 Z12.31 Specialize d medical examination 13155797 Z01.419 Screening for malignant neoplasm of rectum 222327239 Z12.12 Acute lowe r urinary tract infection 089433317 R30.0 Atrophic vulvovaginitis 04823483 N95.2 [id number] MD KATHY Garsia MD [address] [place] [address], [address] [place] [address] 01/18/2017 07:56:21 01/18/2017 12:14:44 Acute lower urinary tract infection [id number] R30.0 Menopausal syndrome 1237 88576 N95.9 [id number] MD KATHY Garsia MD [address] [place] [address],[address] [address] 02/02/2017 13:10:08 02/02/2017 14:35:00 Acute lower urinary tract infection [id number] R30.0 Candidal vulvovaginitis 49465226 B37.3 [id number] MD KATHY Garsia MD [address] [place] [address] 01/14/2018 09:48:09 01/14/2018 12:05:08 Screening mammography 92768338 Z12.31 Acute lowe r urinary tract infection [id number] R30.0 [id number] MD KATHY Garsia MD [address] [place] [address],[facility] [address] [place] [address] 02/01/2018 10:34:17 02/01/2018 14:39:06 Specialized medical examination 69719182 Z01.419 Screening for malignant neoplasm of rectum 071052200 Z12.12 Screening mammography 24 828608 Z12.31 Acute lowe r urinary tract infection 763032501 R30.0 Atrophic vulvovaginitis 74871245 N95.2 Lichen scl erosus et atrophicus 51414403 L90.0 [id number] MD KATHY Garsia MD [address] [place] [address],[facility] [place] [address] 03/25/2018 08:27:29 03/25/2018 09:43:03 Recurrent urinary tract infection 391055715 N39.0 [id number] MD KATHY Garsia MD [address] [place] [address] [place] [address] 05/09/2019 13:20:47 05/09/2019 16:00:16 Screening mammography 11326774 Z12.31 Acute lowe r urinary tract infection 969580839 R30.0 Lichen scl erosus et atrophicus 32406064 L90.0 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 Candidal vulvovaginitis 39356508 B37.3 [id number] MD KATHY Garsia MD [address] [place] [address] 5 06/01/2019 09:24:51 06/01/2019 12:01:30 Acute lower urinary tract infection 337664264 R30.0 Specialize d medical examination 79062005 Z01.419 Screening for malignant neoplasm of rectum 128803583 Z12.12 Screening mammography 24 911344 Z12.31 Candidiasis of skin 4988 3006 B37.2 [id number] MD KATHY Garsia MD [address] [place] [address] 06/02/2019 13:09:32 06/02/2019 15:47:06 Urinary tract infectious disease 15417313 N30.00 Candidal vulvovaginitis 51208101 B37.3 [id number] MD KATHY Garsia MD [address] [place] [address] 5 06/15/2019 08:30:24 06/15/2019 11:52:18 Acute lower urinary tract infection 228528332 R30.0 [id number] MD KATHY Garsia MD [address] [place] [address] 5 09/04/2020 08:18:37 09/04/2020 10:21:39 Specialized medical examination 13659859 Z01.419 Screening for malignant neoplasm of rectum 844055080 Z12.12 Screening mammography 24 150853 Z12.31 Atrophic vulvovaginitis 26854086 N95.2 Acute lowe r urinary tract infection 105148517 R30.0 Lichen scl erosus et atrophicus 07376340 L90.0 [id number] MD KATHY Garsia MD [address] [place] [address], [address] [place] [address] 12/20/2020 14:15:25 12/20/2020 15:50:42 Candidal vulvovaginitis 55918929 B37.3 Urinary tr act infectious disease 95678850 N30.00 [id number] MD KATHY Garsia MD [address] [place] [address], [place] [address] 01/17/2021 13:33:34 01/17/2021 15:25:30 Menopausal syndrome 927292644 N95.1 [id number] MD KATHY Garsia MD [address] [place] [address], [place] [place] [address] 04/09/2021 09:52:20 04/10/2021 08:58:45 Acute lower urinary tract infection 259116333 R30.0 Lichen scl erosus et atrophicus 93370186 L90.0 Health Concerns Section Related Observation LastModified by Organization Detai ls LastModified Time None Recorded Concern Status LastModified by Organization Details LastModified Time None Recorded Advance Directives Directive None Recorded Payers Encounter Date Sequence Insurance Name Policy Number Policy Hall Covered Member ID Hall Member ID Guarantor Name 06/15/2019 1 [id number] Charlie Argiro [id number] Michelle Argiro 09/04/2020 1 [facility] [id number] Charlie Argiro [id number] Michelle Argiro 12/20/[address] [place] [address] [id number] Charlie Argiro [id number] Michelle Argiro 01/17/2021 1 [facility] [id number] Charlie Argiro [id number] Michelle Argiro 04/09/[address] [id number] Michelle Argiro [id number] Michelle Leairo Notes Date Note Type Note Provider Name and Address Organization Details Recorded Time 06/15/2019 text/html She is here for follow up after recent UTI, it took a while to clear but she finally feels as if her symptoms are fully resolved. She believes it may have started because, I had to hold my urine for too long. Kathy Mac MD [address], [place], [address], [facility] - [facility] in [facility], 06/15/2019 10:48:55 09/04/2020 text/html She is here for annual exam, has increased urinary frequency, requests a urine dip and culture. She is using the E2 cream 4 times a week, would like to go to every day. she notes that she has persistently been having several hot flashes a day, this is debilitating to her, I kept thinking it would go away but it's not getting any better. She would like to consider tkaing HRT, as her sister does. __ note from 2019: She is here for annual exam, recently had a UTI, also needs a ZACK. She feels it is resolved. She continues to have increased frequency of urination, sometimes large amounts sometimes small, she urinated 20 to 30 times a day, and 3 times a night. She is gun shy because of prior problems with urologists, had a sling and mesh issues, she had a problem with the original mesh, and had to have it repaired in 2011 laparoscopically and vaginally. She is using E2 vaginal cream daily, and it is not improved. She has never tried oral pills. She is advised to follow up with a new urologist as she does not have oliverio in those she saw before. On exam, she has cutaneous monilia under breasts and under pannus, red, no skin breakdown. There is a similar color lesion of the mid lateral left abdominal wall, though not in a fold, circular: not certain what that might be, could be monilia by color and similarity to other lesions, or could be ? Adithya, advised to see janitorial account manager. RX NyStop pwsder for cutaenous monilia. She appears to be doing well. Continue E2 vaginal cream. Check urine culture for ZACK. Kathy Mac MD [address], [place], [address], [facility] - [facility] in [facility], 09/04/2020 08:54:49 12/20/2020 text/html This visit is a phone telehealth visit. The patient consented to the visit by phone. The patient was at home at the time of the call and the provider and patient were the only people on the line. I was at [address] [facility], [address], at the time of the call. She is in quarantine for possible exposure to covid. She is very, very sore when she urinates, she also has vaginal pruritus. She tried Monistat OTC. She does not have frequency or urgency. Kathy Mac MD [address] [facility],[address] [facility], [place], [address], [facility] - [facility] in [facility], 12/20/2020 15:25:16 01/17/2021 text/html This visit is a phone telehealth visit. The patient consented to the visit by phone. The patient was at home at the time of the call and the provider and patient were the only people on the line. I was at [address] [place] [address], [address], at the time of the call. She has had vasomotor symptoms since menopause, she is having severe hot flashes and night sweats, she has significant insomnia. _ Note from 08/2020: She is here for annual exam, has increased urinary frequency, requests a urine dip and culture. She is using the E2 cream 4 times a week, would like to go to every day. she notes that she has persistently been having several hot flashes a day, this is debilitating to her, I kept thinking it would go away but it's not getting any better. She would like to consider tkaing HRT, as her sister does. Kathy Mac MD [address] [facility],[address], [place], [address], [facility], 01/17/2021 14:40:11 04/09/2021 text/html She has had a fe w months of worsening dysuria. She feels like sometimes when the urine hits the skin of the vulva that she has small cuts that are quite painful. She has a past history of recurrent UTIs in 2017. She started using the Estrace vaginal cream and this improved dramatically, but then she stopped using it for a while.She picked it up on 09/15/20, and then again picked it up on 03/30/21. She has been using it daily for the past few months, she notes. She also uses triamcinolone for lichen sclerosis. She last picked it up on 09/15/20, 30 grams. She had been using it once a day but recently increased to twice a day. She has had headaches for years, she sees her PCP for this, has not seen a neurologist since she was a teenager. She wonders if it is sinus related, but she saw a ENT and he did not take her concerns seriously, she feels. She has to take medication regularly for this, although she notes that she has not taken Fioricet for a while as she is trying to cut back on it. Just in the past 4 months it appears that she has received 160 Fioricet ... She picked up 32 tabs on 03/30/21, 64 tabs on 02/02/21 (it appears from two different prescribers), 64 tabs on 12/20/20 (it appears for 2 different prescribers). Prescriptions for this go back to at least 2011. She has difficulty sleeping as well. We discussed that the fioricet has caffeine and that may be bothering her sleep. She notes that she is no longer thaking the fioricet, but still having the insomnia issues. I asked her if she picked up the rx in March and she states that she did but that she is not using it, she just wanted to have it available in case she needed it. Kathy Mac MD [address] [facility],[address], [place], [address], [place] [facility], 04/09/2021 13:10:00 OBGyn Episode No OBEpisode recorded.
--- OUTSIDE RECORDS SUMMARY | 2025-02-28 08:35 | XMS_ITS | Clinical Summary ---
Author Organization [facility] Address [address] [place] [address] Care Team Providers Care Dehydrogenation Operator Name Role Phone Tamika Ward MD Primary Care Prov ider Allergies No known active allergies Medications Medication Sig Dispensed Refills Start Date End Date Status eszopiclone (LUNESTA) tablet 0 06/08/2017 Active JANTOVEN 1 MG tablet 0 06/03/2017 Active traZODone (DESYREL) 100 MG tablet 0 05/25/2017 Active raNITIdine (ZANTAC) 300 MG capsule TAKE ONE CAPSULE BY MOUTH AT BEDTIME 3 03/07/2019 Active butalbital-acetami nophen-caffeine (FIORICET, ESGIC) 50-325-40 MG per tablet TAKE 1 TO 2 TABLETS BY MOUTH DAILY NEEDED FOR HEADACHES. 0 04/27/2019 Active azelastine (ASTELIN) 0.1 % nasal spray 0 12/09/2019 Active ramelteon (ROZEREM) 8 MG tablet 0 11/23/2019 Active estradiol (ESTRACE) 0.1 MG/GM vaginal cream 0 12/25/2019 Active triamcinolone (KENALOG) 0.1 % ointment 0 12/25/2019 Active hydrOXYzine (ATARAX) 50 MG tablet Take 50-100 mg by mouth. 0 02/27/2020 Active ibuprofen (ADVIL,MOTRIN) 600 MG tablet ibuprofen 600 mg tablet 0 Active oxybutynin (DITROPAN-XL) 5 MG 24 hr tablet oxybutynin chloride ER 5 mg tablet,extended release 24 hr 0 Active PARoxetine (PAXIL) 10 MG tablet paroxetine 10 mg tablet 0 Active progesterone (PROMETRIUM) capsule 200 mg progesterone micronized 200 mg capsule TAKE ONE CAPSULE BY MOUTH AT BEDTIME 0 Active rOPINIRole (REQUIP) 0.25 MG tablet TAKE 1 TABLET BY MOUTH 1 HOUR BEFORE BED, IF NOT EFFECTIVE AFTER 3 DAYS, CAN INCREASE TO 2 PILLS AT BEDTIME 0 01/23/2021 Active SUMAtriptan (IMITREX) 50 MG tablet sumatriptan 50 mg tablet 0 Active topiramate (TOPAMAX) 25 MG tablet topiramate 25 mg tablet 0 Active zolpidem (AMBIEN) 10 MG tablet zolpidem 10 mg tablet 0 Active traMADol (ULTRAM) 50 MG tablet Take 1 tab every 12 hours as needed for pain 60 tablet 0 08/17/2021 Active benzonatate (TESSALON) 100 MG capsule TAKE ONE CAPSULE BY MOUTH THREE TIMES A DAY NEEDED FOR COUGH 0 09/10/2022 Active amoxicillin (AMOXIL) 500 MG capsule TAKE 4 CAPSULES BY MOUTH 1 HOUR PRIOR TO DENTAL APPOINTMENT 20 capsule 3 09/23/2022 Active Active Problems Problem Noted Date Diagnosed Date Traumatic tear of medial meniscus of knee, left, sequela 01/10/2020 Left hamstring strain, initial encounter 020 It band syndrome, left 12/15/2019 Arthritis of knee, left 12/15/2019 Knee stiffness, right 06/03/2018 Chronic pain of right knee 03/04/2018 Chronic pain of right knee 07/06/2017 Family History Medical History Relation Name Comments Stroke Mother Relation Name Status Comments Mother Social History Tobacco Use Types Packs/Day Years Used Date Smoking Tobacco: Never Smokeless Tobacco: Never Alcohol Use Standard Drinks/Week Comments No 0 (1 standard drink = 0.6 oz pur e alcohol) Sex and Gender Information Value Date Recorded Sex Assigned at Not on file Gender Identity Not on file Sexual Orientation Not on file Job Start Date Occupation Industry Not on file Not on file Not on file Last Filed Vital Signs Vital Sign Reading Time Taken Comments Blood Pressure - - Pulse - - Temperature - - Respiratory Rate - - Oxygen Saturation - - Inhaled Oxygen Concentration - - Weight 51.3 kg (113 lb) 09/23/2022 10:37 AM EST Height 152.4 cm (5') 09/23/2022 10:37 AM EST Body Mass Index 22.07 09/23/2022 10:37 AM EST Plan of Treatment Health Maintenance Due Date Last Done Comments Hepatitis C Screening 1956 Depression Screening 1968 Preventative Health Evaluation 1974 Colon Cancer Screening (Colonoscopy) 2001 Breast Cancer Screening (Mammogram) 2006 Fall Risk Assessment 2021 Osteoporosis Screening (DEXA Scan) 2021 Pneumococcal Vaccine (2 of 2 - PCV) 2021 01/22/2011 DTap / Tdap / Td (2 - Td or Tdap) 11/08/2022 11/08/2012 COVID-19 Vaccine ( season) 2024 09/11/2021, 02/04/2021, 01/14/2021 Influenza Vaccine (#1) 2024 , 07/31/2020, 08/29/2019, Additional history exists RSV Adult > 60+ Yrs or (1 - 1-dose 75+ series) 2031 Shingrix-Zoster Vaccine Completed 08/13/2018, 05/10 Hepatitis B Vaccines Aged Out No long er eligible based on patient's age to complete this topic RSV Ped < 20 months Aged Out No longe r eligible based on patient's age to complete this topic Care Teams Dehydrogenation Operator Relationship Specialty Start Date End Date Tamika Ward MD PCP - General Internal Medicine 09/01/22
--- OUTSIDE RECORDS SUMMARY | 2025-02-28 08:35 | XMS_ITS ---
Author Name [facility] Organization Unknown History of Medication Use Medication Directions Dispensed Refills Start Date End Date Stat prednisone 10 mg tablet Take 4 tablet(s) EVERY DAY by oral route for 2 days, then decrease by 1 pill every 2 days until gone (4,4,3,3,2,2,1,1) 01/14/2024 01/28/2024 active Kenalog 40 mg/mL suspension for injection Take 1 mL by injection route. 05/25/2023 01/14/2024 completed Flowflex COVID-19 Antigen Home Test kit USE DIRECTED PER SUPERVISOR RUBBER COVERING INSTRUCTIONS TO TEST FOR COVID-19 01/14/2024 active montelukast 10 mg tablet TAKE ONE TABLET BY MOUTH EVERY DAY AT BEDTIME 01/14/2024 completed azelastine 137 mcg (0.1 %) nasal spray aerosol TAKE 2 SPRAYS IN EACH NOSTRIL TWO TIMES A DAY DIRECTED active docusate sodium 100 mg capsule TAKE ONE CAPSULE BY MOUTH TWICE A DAY active estradiol 0.01% (0.1 mg/gram) vaginal cream APPLY A PEA-SIZED AMOUNT OF CREAM WITH YOUR FINGER VAGINALLY AT BEDTIME FOR 2 WEEKS, THEN TWO TIMES A WEEK AT NIGHT active fluconazole 150 mg tablet TAKE ONE TABLET BY MOUTH ONCE active ropinirole 0.25 mg tablet TAKE 1 TABLET BY MOUTH ONE HOUR BEFORE BEDTIME. IF NOT EFFECTIVE AFTER 3 DAYS YOU MAY INCREASE TO TAKE TWO TABLETS AT BEDTIME. active solifenacin 5 mg tablet TAKE 1 TABLET BY MOUTH ONCE DAILY. IF TOLERATING AFTER 1 MONTH ,INCREASE TO 2 TABLETS BY MOUTH DAILY. active trazodone 100 mg tablet TAKE TWO TABLETS BY MOUTH AT BEDTIME active Problems Problem Status Onset Date Problem Type Date of Resoluti on Source Pain of right shoulder joint active 2024-01-28 ProblemAct ENS_AONECT Impingement syndrome of right shoulder region active 2024-01-28 ProblemAct ENS_AO NECT Osteoarthritis of left knee joint active 2023-05-25 ProblemAct ENS_AONECT Subacromial bursitis of right shoulder active 2024-01-14 ProblemAct ENS_AONECT Encounters Encounter Type Encounter Reason Primary Diagnosis Location Date Ambulatory [facility] 01/27/2024 Ambulatory [facility] 01/14/2024 Ambulatory [facility] 01[facility]14/2024 Ambulatory [facility] 05/25/2023 Ambulatory [facility] 05/21/2023 Ambulatory [facility] 05/21/2023 Ambulatory [facility] 03/29/2023 Care Team Organization Name Specialty Phone Email Start Date End [facility] te [facility] RAKEL BAJWA Primary Care 10/08/2022 06/26/2024
--- NOTE | 2025-02-28 08:46 | A.OFFVIS_ITS ---
Vital Signs 02/28/25 08:54 Height 5 ft Weight 98 lb BMI 19.1 Intake Visit Reasons: OV LT Lateral tibial plateau fx w/ joint effusion Intake Note: Michelle is a 69 year old female who presents today status post left lateral tibial plateau fracture with joint effusion, DOI: 02/03/25. Patient states that he sons dog bumped into her and made her fall and she felt a sharp pain. She mentions she is very sore today and she has a ACL brace with here and removed it for the x rays. Patient tried oxycodone and Tylenol with no releif. x-rays from [place] scanned in, 02/03/25 Allergies No Known Allergies Allergy (Verified 02/28/25 08:53) HPI HPI OV LT Lateral tibial plateau fx w/ joint effusion: Details: Ms. Abbott is a 69 year old female who presents today after sustaining a left lateral tibial plateau fracture on 02/03/25. She reports that her son's large dogs 70-80 lb ran into the side of her causing her to fall landing directly onto the left knee. After that she had extreme pain and difficulty with ambulation. She presented to [facility] where x-rays were obtained and she was told that she had a left lateral tibial plateau fracture. She was given an ACL brace and crutches and instructed follow up with orthopedics outpatient for further evaluation and treatment. Patient tried oxycodone and Tylenol with no relief. [facility] Surgical History (Updated 08/17/24 @ 11:57 by Courtney Souza [facility]) History of bladder surgery H/O: hysterectomy Hx of right knee surgery (~2017) Social History (Updated 02/28/25 @ 08:54 by Lobito Rivera) Alcohol intake: current Alcohol intake frequency: holidays/special occasions only Patient Tobacco Use Status: Never used Tobacco Current occupational status: retired Current occupation: Right hand dominant Review of Systems Const All systems reviewed & are unremarkable except as noted in HPI and below Physical Exam Vital Signs: BMI result Body Mass Index 19.1 Const General: cooperative, healthy appearing and no acute distress Resp Effort & Inspection: normal respiratory effort and able to speak in complete sentences Cardio Rate: regular rate Peripheral pulses: Peripheral pulses 2+ throughout Skin Lesions: no lesions Rashes: no rashes Extrem Other: Left knee normal to inspection no ecchymosis erythema or joint effusion present at this time. Able to perform range of motion 0-120. NVI. Office Procedures AMB Fracture Care Fracture Billing Code: Fracture Billing Code Assessment & Plan Assessment & Plan (1) Fracture of left tibial plateau: Code(s): S82.142A - Displaced bicondylar fracture of left tibia, initial encounter for closed fracture Category: Medical Plan While in the office today, educated the patient on nonweightbearing on the left lower extremity for a total of 3 months status post injury. It appears as though the tibial plateau fracture is minimally displaced not indicative of surgical intervention. I did explain to the patient that the risks with weight- bearing would be the possibility of further displacement requiring surgical intervention at that time. Patient demonstrates understanding. She was placed back into the ACL brace and instructed to follow up in 6 weeks with repeat x- rays, sooner if needed. X-rays of the left knee which were obtained while in the office today and were reviewed by me, Eulalia Castaneda PA-C, revealed lateral tibial plateau fracture with minimal displacement. Orders: Orders XR knee LT 3V Today M25.569 - Pain in unspecified knee Coding Level of Care Code New Pt Level 4 (44575) Diagnoses Fracture of left tibial plateau S82.142A CPT Codes Fracture Care - Fracture Billing Code: Fracture Billing Code ([id number])
[2025-02-28 08:54] VITALS: BMI 19.1
== END 2025-02-28 09:11 | disposition home or self-care (01) ==
PROVIDERS: Visit Provider Physician Assistant
DX: S82.142A Displaced bicondylar fracture of left tibia, initial encounter for closed fracture (principal)
CPT/HCPCS: 99213

== ENCOUNTER → 2025-02-28 08:28 | Outpatient (BNV) | payer MEDICARE, SELFPAY | PROVIDERS: Visit Provider Radiology Diagnostic Radiology | DX: M25.562 Pain in left knee (principal); M17.12 Unilateral primary osteoarthritis, left knee; M25.462 Effusion, left knee | CPT/HCPCS: 73562 ==

== ENCOUNTER 2025-02-28 11:02 | Outpatient (REF) | payer MEDICARE, SELFPAY ==
--- NOTE | ~2025-02-28 | XR_ITS ---
EXAMINATION: XR KNEE, LEFT CLINICAL INFORMATION: M25.569 - Pain in unspecified knee COMPARISON: None available. TECHNIQUE: Three views of the left knee. FINDINGS: Focal lytic abnormality in the lateral tibial plateau. Sclerosis and the articular surface of the medial tibial plateau and medial femoral condyle with associated marginal osteophyte formation. Suprapatellar bursa joint effusion, small to moderate volume. No gross malalignment. Decreased volume of the soft tissue/muscular components with the cachectic appearance. XR/XR knee LT 3V IMPRESSION: Questionable of lytic bone lesion versus nondepressed fracture lateral tibial plateau. Medial compartment osteoarthrosis, mild to moderate. Suprapatellar bursa joint effusion, small to moderate volume. Electronically signed by: Foreign Howard MD 03/01/2025 11:27 AM EDT
--- OUTSIDE RECORDS SUMMARY | 2025-03-01 13:02 | XMS_ITS | Clinical Summary ---
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 Ortho Xray [address] [place] [address] Pain Discharge Disposition: Home or Self Care 02/08/2025 Telephone Adult Medicine [address] [phone] Tamika Zamora MD jury duty 02/05/2025 9:41 AM EDT - 02/05/2025 11:59 PM EDT Hospital Encounter [facility] Ortho Xray [address] [place] [address] Pain Discharge Disposition: Home or Self Care 02/03/2025 3:40 PM EDT - 02/03/2025 9:[address] [facility] Emergency [address] [place] [address] Joe Rodriguez MD Closed fracture of left tibial plateau, initial encounter (Primary Dx) Discharge Disposition: Home or Self Care 01/08/2025 7:34 AM EST Anesthesia Event [facility] Endoscopy [address] [place] [address] Christiane Miller MD Guerin, Erik R, PSYCHIATRIC TECHNICIAN ASSISTANT 01/08/2025 6:51 AM EST - 01/08/2025 11:59 PM EST Hospital Encounter [facility] Endoscopy [address] [place] [address] Carlie Bains DO Guerin, Erik R, PSYCHIATRIC TECHNICIAN ASSISTANT Positive colorectal cancer screening using Cologuard test Discharge Disposition: Home or Self Care 12/20/2024 3:45 PM EST Office Visit Adult Medicine - [place] [address] [place] [address] Tamika Zamora MD Chronic cough [...] obstruction TOTAL KNEE ARTHROPLASTY 05/10/2017 Right PROCEDURE: [place] ARTHRP KNE CONDYLE&PLATU MEDIAL&LAT COMPARTMENTS OTHER SURGICAL HISTORY 05/2015 PROCEDURE: [place] SLING OPERATION STRESS INCONTINENCE INCISIONAL HERNIA REPAIR 10/13/2018 PROCEDURE: [place] IMPLANT MESH OPN HERNIA RPR/DEBRIDEMENT CLOSURE; COMMENT: Dr. Cabrera COLONOSCOPY 01/24/09 PROCEDURE: HISTORICAL COLONOSCOPY; COMMENT: Up to cecum, regular preparation in the right colon, good preparation in the left colon, sigmoid diverticulosis, otherwise normal colon exam HYSTERECTOMY 1986 PROCEDURE: HISTORICAL HYSTERECTOMY; COMMENT: Total Vaginal Hyst She had a prolapsed uterus after her 3rd child PARTIAL HYSTERECTOMY 1983 PROCEDURE: [place] SUPRACERVICAL ABDL HYSTER W/WO RMVL TUBE OVARY; COMMENT: age 28 COLONOSCOPY PROCEDURE: HISTORICAL COLONOSCOPY; COMMENT: Martínez Diverticulosis Coli, Sml Internal Hemorrhoids, Repeat 10 yrs BLADDER SUSPENSION 01/21/2011 PROCEDURE: HISTORICAL BLADDER SUSPENSION; COMMENT: Lap abd sacrocolpopexy and Monarc suburethral sling for cystocele, vaginal vault prolapse and stress urinary incontinence OTHER SURGICAL HISTORY 2012 PROCEDURE: [place] ANTERIOR COLPORRAPHY RPR CYSTOCELE W/CYSTO; COMMENT: for [...] by: Benjamin Monsalve MD on 02/03/2025 20:03:04 Joe Rodriguez [...] Signed Date: 02/03/2025 16:06 ET Workstation ID: [id number] Transcribed By: Self Edit Transcribed Date: 02/03/2025 [...] Signed Date: 02/03/2025 16:06 ET Workstation ID: [id number] Transcribed By: Self Edit Transcribed Date: 02/03/2025 [...] pathology results. Narrative 01/08/2025 8:[address] [facility] GI Patient Name: Michelle Abbott Procedure Date: 01/08/2025 7:34 AM Date of : 1955 Age: 69 Gender: Female Note Status: Finalized Attending MD: Carlie Bains DO, [id number] Procedure Date No Time: 01/08/2025 Procedure: ? [...] physician, the nurse, the ? anesthesiologist, the nursing care partner and the recycling technician ? in the pre-procedure area in [...] Procedure Code(s): ? --- Professional --- ? 46764, Colonoscopy, flexible; with removal of ? tumor(s), polyp(s), or other lesion(s) by snare ? technique ? 69536, 59, Colonoscopy, flexible; with biopsy, single ? or multiple Diagnosis Code(s): ? --- Professional --- ? K64.9, Unspecified hemorrhoids ? D12.8, Benign neoplasm of rectum ? D12.0, Benign neoplasm of cecum ? R19.5, Other fecal abnormalities CPT copyright 2020 [employer]. All rights reserved. The codes documented in this report are preliminary and upon protection chief industrial plant review may be revised to meet current compliance requirements. CARLIE Bains DO 01/08/2025 8:05:37 AM This report has been signed electronically.Carlie Bains DO Number of Addenda: 0 Note Initiated On: 01/08/2025 7:34 AM Scope In: Scope Out: ? Endoscopy Department at [facility] - [address] [place] [address], ? [place] [address] Procedure Note Carlie Bains DO - 01/08/2025 [facility] GI Patient Name: Michelle Abbott Procedure Date: 01/08/2025 7:34 AM Date of : 1955 Age: 69 Gender: Female Note Status: Finalized Attending MD: Carlie Bains DO, [id number] Procedure Date No Time: 01/08/2025 Procedure: Colonoscopy [...] the physician, the nurse, the anesthesiologist, the nursing care partner and thetechnician in the pre-procedure area in [...] retroflexion views. Procedure Code(s): --- Professional --- 37349, Colonoscopy, flexible; with removal of tumor(s), polyp(s), or other lesion(s) by snare technique 15468, 59, Colonoscopy, flexible; with biopsy,single or multiple Diagnosis Code(s): --- Professional --- K64.9, Unspecified hemorrhoids D12.8, Benign neoplasm of rectum D12.0, Benign neoplasm of cecum R19.5, Other fecal abnormalities CPT copyright 2020 [employer]. All rights reserved. The codes documented in this report are preliminary and upon protection chief industrial plant reviewmay be revised to meet current compliance requirements. CARLIE Bains DO 01/08/2025 8:05:37 AM This report has been signed electronically.Carlie Bains DO Number of Addenda: 0 Note Initiated On: 01/08/2025 7:34 AM Scope In: Scope Out: Endoscopy Department at [facility] - [address] [place] [phone] IMPRESSION: - Hemorrhoids found on perianal exam. [...] - Hyperplastic polyp. 01/09/2025 9:07 AM EST [facility] HOSPITAL LAB Gross Description A. Large Intestine, [...] [facility] [address] [place] [address], * (ABNORMAL) Cologuard?? colon cancer screening (12/26/2024 7:45 AM EST) COLOGUARD Positive( A) Negative [facility] Comment: POSITIVE TEST RESULT. A positive Cologuard [...] Crespo et al, N Engl J Med 2014;370(14):3463-2108.) Cologuard may produce a false negative or false positive result (no colorectal cancer or precancerous polyp present at colonoscopy follow up). A negative Cologuard test result does not guarantee the absence of CRC or advanced adenoma (pre-cancer). The current Cologuard screening interval is every 3 years. ([employer] and U.S. Multi-Society Task Force). Cologuard performance data in a 10,000 patient pivotal study using colonoscopy as the reference method can be accessed at the following location: www.Transaq/results. Additional description of the Cologuard test process, warnings and precautions can be found at www.cologuard.com. Stool 12/26/2024 7:45 AM EST 12/27/2024 11:02 AM EST Tamika Zamora MD LAB MOLECULAR DIAG NOSTICS ORDERABLES Final Result Performing Organization Address City/State/[facility] Co de Phone Number [email or web address] [address] [place] [address] [place] [address] [facility] [address] [place] [address]. [place] [address] * MG Mammo Digital Screening w Gunnar bilat (10/30/2024 7:54 AM EST) Anatomical Region Laterality Modality Breast Bilateral Mammography 10/31/2024 11:1 0 AM EST Impressions 10/31/2024 11:20 AM EST 1. No mammographic evidence of malignancy 2. Heterogeneous breast parenchyma BI-RADS CATEGORY: 2 - BENIGN RECOMMENDATION: Screening bilateral mammogram is recommended in 1 year. Mammo Location: [facility], [address] [place] [address], [id number], . -------- FINAL REPORT -------- Dictated By: Juan Antonio Choe Dictated Date: 10/31/2024 11:10 ET Assigned Physician: Juan Antonio Choe Reviewed and Electronically Signed By: Juan Antonio Choe Signed Date: 10/31/2024 11:20 ET Workstation ID: [id number] Transcribed By: Self Edit Transcribed Date: 10/31/2024 [...] is recommended in 1 year. Mammo Location: [facility], [address] [place] [address], [id number], . -------- FINAL REPORT -------- Dictated By: Juan Antonio Choe Dictated Date: 10/31/2024 11:10 ET Assigned Physician: Juan Antonio Choe Reviewed and Electronically Signed By: Juan Antonio Choe Signed Date: 10/31/2024 11:20 ET Workstation ID: [id number] Transcribed By: Self Edit Transcribed Date: 10/31/2024 11:10 ET Tamika Zamora MD IMG BI PROCEDURES Final Result * Depression Screening (06/28/2024) Depression Screening abstracted Result [facility] Historical Provider HEALTH MAINTENANCE Final Result * (ABNORMAL) Lipid panel (01/20/2022) LDL/HDL Ratio 4 0 - 4 Triglycerides 255(A) 0 - 150 mg/dL Cholesterol 264(A) 0 - 200 mg/dL HDL 76 >=40 mg/dL LDL Cholesterol 137(A) 0 - 100 mg/dL Blood Venous blood specimen / Unknown Result [facility] Historical Provider LAB BLOOD ORDERABLES Vanessa l Result * Hepatitis C Screening (01/04/2014) Hepatitis C Screening abstracted Historical Provider HEALTH MAINTENANCE Final Result from Last 3 Months or Most Recently Relevant to Health Maintenance Insurance MEDICARE [facility] Care Teams Booster Plant Operator Relationship Specialty Start Date End Date Tamika Zamora MD [address] [place] [id number] PCP - General Internal Medicine 02/26/21
--- OUTSIDE RECORDS SUMMARY | 2025-03-01 13:02 | XMS_ITS | Data Portability ---
Author Organization [place] - [facility],, KATHY MAC MD Address [address] [address] Care Team Providers Care Sanitation Worker Name Role Phone ANCHOR-CHLOE HERRERA Primary Care Provider Assessment No assessment recorded. Plan of Treatment Reminders Order Date Submit Date Provider Last Modified By Organization Details Last Modified Time Details Appointments None recorded. Lab urinalysi s, dipstick 2020 021 [email or web address] 1 In-Office Order, Internal Use Only DO Not Attach Compendium DO Not Attach Compendium, Do Not Delete/merge, [id number] 1 13:00:50 culture, urine 2020 021 [facility], [address] [place], [address], 1 10:05:38 pap test, thinprep, cervical 2019 020 tmeczywor [facility], Cytopathology Service, [address] [place], [address], 0 07:38:33 urinalysi s, dipstick 2019 020 [email or web address] In-Office Order, Internal Use Only DO Not Attach Compendium DO Not Attach Compendium, Do Not Delete/merge, [id number] 0 07:38:33 culture, urine 2019 020 [facility], [address] [place], [address], 0 08:19:19 fecal occult blood, stool 2019 020 [email or web address] In-Office Order, Internal Use Only DO Not Attach Compendium DO Not Attach Compendium, Do Not Delete/merge, [id number] 0 07:38:32 urinalysi s, dipstick 2018 019 tmeczywor In-Office Order, Internal Use Only DO Not Attach Compendium DO Not Attach Compendium, Do Not Delete/merge, [id number] 9 11:51:59 culture, urine 2018 019 [facility], [address] [place], [address], 9 12:58:29 Referral None recorded. Procedures None recorded. Surgeries None recorded. Imaging MAMMO, screening , digital, bilateral 2019 020 [facility] ([facility]), [address] [place], [address], 0 09:11:01 Medication Orders estradiol 1 mg tablet 2020 021 INTERFACE [facility], [address] [place] [address], [address], 1 13:54:38 progester one micronize d 200 mg capsule 2020 021 INTERFACE [facility], [address] [place] [address], [address], 1 13:54:38 nitrofura ntoin monohydra te/macroc rystals 100 mg capsule 2020 021 [email or web address] [facility], [address] [place] [address], [address], 1 13:42:05 fluconazo le 150 mg tablet 2020 021 [email or web address] [facility], [address] [place] [address], [address], 1 13:41:55 estradiol 0.01% (0.1 mg/gram) vaginal cream 2019 020 INTERFACE [facility], [address] [place] [address], [address], 0 08:53:45 triamcino lone acetonide 0.1 % topical cream 2019 [email or web address] [facility], [address] [place] [address], [address], 13:42:23 Patient TargetsNo targets recorded. Patient Instructions Encounter Date Encounter Id Patient Instructions Last Modified By Organization Details Last Modified Time 06/15/2019 [id number] urinary tract infection in women information Not [...] 25 minutes Not available 06/15/2019 10:48:41 09/04/2020 [id number] learning about healthy weight Not available 09/04/2020 [...] could be ? Adithya, advised to see nitriles lab technician. RX Erika rodas for cutaenous monilia. She [...] questions answered. Not available 09/04/2020 08:54:19 12/20/2020 [id number] Urinary Tract Infection (UTI) in Women: Care Instructions Not available 12/20/2020 14:25:13 vaginal yeast infection: care instructions [facility] Not available 12/20/2020 14:25:14 This visit is a phone telehealth visit. The patient consented to the visit by phone. The patient was at home at the time of the call and the provider and patient were the only people on the line. I was at [address] [place] [address], at the time of the call. She [...] evaluation. Face to face discussion 30 minutes [facility] Not available 12/20/2020 14:27:31 01/17/2021 [id number] This visit is a phone telehealth visit. The patient consented to the visit by phone. The patient was at home at the time of the call and the provider and patient were the only people on the line. I was at [address] [place] [address], at the time of the call. She [...] 30 minutes. Not available 01/17/2021 13:59:32 04/09/2021 [id number] urinary tract infection in women information Not [...] DO Not Attach Compendium, Do Not Delete/merge, [id number] 09/04/2020 08:21:16 06/01/20 19 06/01/2019 fecal occul t blood , stool Occult Blood negati ve Not Available In-Office Order Internal Use Only DO Not Attach Compendium DO Not Attach Compendium, Do Not Delete/merge, [id number] 06/01/2019 09:43:53 06/01/2006/01/2019 cultu re, urine comments [facility] [address] [facility] [place] [address] Medic al Dire dirk flores MD [facility] E: URINE ,MARCOS N CATCH ; Not Available [facility] [address] [facility], [place], [address], 06/03/2019 08:22:04 06/01/20 19 06/02/2019 cultu re, urine urine culture [facility] howard, [facility] [address] [place] [address] Medic al [facility] MD ALEXANDER Hutson CTION TIME: 2018 9:30: 00 AM -04:0 0 URINE CULTU RE KLEBS IELLA PNEUM O. SSP PNEUM O. ( KLEPS P ) F URINE CULTU RE COLON Y COUNT F URINE CULTU RE >100, 000 F Not Available [facility] [address] [place] [address], [address], 06/03/2019 08:22:04 06/01/20 19 06/01/2019 antib iotic sensi tivit y, isola te comments PAREN T ORGAN ISM: KLEBS IELLA PNEUM O. SSP PNEUM O. ( KLEPS P ) [facility] lawrence, [facility] [address] [place] [address] Medic al [facility] dirk folres MD SOURC E: URINE ,MARCOS N CATCH ; Not Available [facility] [address] [place] [address], [address], 06/03/2019 08:22:12 06/01/20 19 06/02/2019 antib iotic sensi tivit y, isola te gram negative susceptibili ty [facility] law[facility], a [facility] [address] [place] [address] Medic al [facility] MD ALEXANDER Hutson CTION TIME: 2018 9:30: [...] S F Not Available [facility] [address] [place], [address], 06/03/2019 08:22:12 06/01/20 19 06/01/2019 pap, LB [id number] ThinP rep Pap, Image d: NEGAT HOLLY FOR SQUAM OUS INTRA EPITH ELIAL LESIO N AND MALIG BLAYNE . React holly cellu lar paola es. [...] CERVI X, LPS = NEG Not Available [facility], Cytopathology Service [address] [place], [address], 06/06/2019 14:53:45 06/01/2006/01/2019 urina lysis , dipst ick GLU Negati ve Not Available In-Office Order Internal Use Only DO Not Attach Compendium DO Not Attach Compendium, Do Not Delete/merge, [id number] 06/01/2019 09:31:27 06/01/20 19 06/01/2019 urina lysis , dipst ick TERRENCE Negati ve Not Available In-Office Order Internal Use Only DO Not Attach Compendium DO Not Attach Compendium, Do Not Delete/merge, [id number] 06/01/2019 09:31:27 06/01/20 19 06/01/2019 urina lysis [...] r of [facility] Of [address] [place] [address] Medic al [facility] dirk flores MD SOURC E: URINE ,MARCOS N CATCH ; Not Available [facility] [address] [place] [address], [address], 06/16/2019 12:58:29 06/15/20 19 06/16/2019 cultu re, urine urine culture [facility] [address] [facility] [place] [address] Medic al [facility] dirk flores MD COLLE CTION TIME: 019 8:30: 00 AM -04:0 0 URINE CULTU RE <10,0 00 CFU/m L F URINE CULTU RE GRAM POSIT HOLLY COCCI and GRAM NEGAT HOLLY BACIL LI F Not Available [facility] [address] [place] [address], [address], 06/16/2019 12:58:29 06/15/2006/15/2019 urina lysis , dipst ick GLU Negati ve Not Available In-Office Order Internal Use Only DO Not Attach Compendium DO Not Attach Compendium, Do Not Delete/merge, [id number] 06/15/2019 08:43:46 06/15/2006/15/2019 urina lysis , dipst ick TERRENCE Negati ve Not Available In-Office Order Internal Use Only DO Not Attach Compendium DO Not Attach Compendium, Do Not Delete/merge, [id number] 06/15/2019 08:43:46 06/15/2006/15/2019 urina lysis , dipst ick KET Negati ve Not Available In-Office Order Internal Use Only DO Not Attach Compendium DO Not Attach Compendium, Do Not Delete/merge, [id number] 06/15/2019 08:43:46 06/15/2006/15/2019 urina lysis , dipst ick SG 1.015 Not Available In-Office Order Internal Use Only DO Not Attach Compendium DO Not Attach Compendium, Do Not Delete/merge, [id number] 06/15/2019 08:43:46 06/15/20 19 06/15/2019 urina lysis , dipst ick BLO Negati ve Not Available In-Office Order Internal Use Only DO Not Attach Compendium DO Not Attach Compendium, Do Not Delete/merge, [id number] 06/15/2019 08:43:46 06/15/20 19 06/15/2019 urina lysis , dipst ick pH 5.0 Not Available In-Office Order Internal Use Only DO Not Attach Compendium DO Not Attach Compendium, Do Not Delete/merge, [id number] 06/15/2019 08:43:46 06/15/20 19 06/15/2019 urina lysis , dipst ick PRO Negati ve Not Available In-Office Order Internal Use Only DO Not Attach Compendium DO Not Attach Compendium, Do Not Delete/merge, [id number] 06/15/2019 08:43:46 06/15/20 19 06/15/2019 urina lysis , dipst ick URO 0.2 E.U. / dl Not Available In-Office Order Internal Use Only DO Not Attach Compendium DO Not Attach Compendium, Do Not Delete/merge, [id number] 06/15/2019 08:43:46 06/15/20 19 06/15/2019 urina lysis , dipst ick NIT negati ve Not Available In-Office Order Internal Use Only DO Not Attach Compendium DO Not Attach Compendium, Do Not Delete/merge, [id number] 06/15/2019 08:43:46 06/15/20 19 06/15/2019 urina lysis , dipst ick HARINI Negati ve Not Available In-Office Order Internal Use Only DO Not Attach Compendium DO Not Attach Compendium, Do Not Delete/merge, [id number] 06/15/2019 08:43:46 09/04/20 20 09/04/2020 cultu re, urine comments [facility] [address] [facility] [place] [address] Medic al Direc dirk flores MD SOUR E: URINE ,MARCOS N CATCH ; Not Available [facility] [address] [facility], [place], [address], 09/05/2020 08:19:19 09/04/20 20 09/05/2020 cultu re, urine urine culture [facility], a [facility] [address] [facility] [place] [address] Medic al Direc MD ALEXANDER HutsonION TIME: 09/04 8:30: 00 AM -04:0 0 URINE CULTU RE No growt h F Not Available [facility] [address] [place], [address], 09/05/2020 08:19:19 09/04/20 20 09/04/2020 pap, LB [id number] ThinP rep Pap, Image d: NEGAT HOLLY [...] neg, z12.4 , z01.4 19 Not Available [facility], Cytopathology Service [address] [place], [address], 09/06/2020 12:26:07 09/04/20 20 09/04/2020 urina lysis , dipst ick GLU Negati ve Not Available In-Office Order Internal Use Only DO Not Attach Compendium DO Not Attach Compendium, Do Not Delete/merge, [id number] 09/04/2020 08:28:19 09/04/20 20 09/04/2020 urina lysis , dipst ick TERRENCE Negati ve Not Available In-Office Order Internal Use Only DO Not Attach Compendium DO Not Attach Compendium, Do Not Delete/merge, [id number] 09/04/2020 08:28:19 09/04/20 20 09/04/2020 urina lysis , dipst ick KET Negati ve Not Available In-Office Order Internal Use Only DO Not Attach Compendium DO Not Attach Compendium, Do Not Delete/merge, [id number] 09/04/2020 08:28:19 09/04/20 20 09/04/2020 urina lysis , dipst ick SG 1.010 Not Available In-Office Order Internal Use Only DO Not Attach Compendium DO Not Attach Compendium, Do Not Delete/merge, [id number] 09/04/2020 08:28:19 09/04/20 20 09/04/2020 urina lysis , dipst ick BLO Negati ve Not Available In-Office Order Internal Use Only DO Not Attach Compendium DO Not Attach Compendium, Do Not Delete/merge, [id number] 09/04/2020 08:28:19 09/04/20 20 09/04/2020 urina lysis , dipst ick pH 6.0 Not Available In-Office Order Internal Use Only DO Not Attach Compendium DO Not Attach Compendium, Do Not Delete/merge, [id number] 09/04/2020 08:28:19 09/04/20 20 09/04/2020 urina lysis , dipst ick PRO Negati ve Not Available In-Office Order Internal Use Only DO Not Attach Compendium DO Not Attach Compendium, Do Not Delete/merge, [id number] 09/04/2020 08:28:19 09/04/20 20 09/04/2020 urina lysis , dipst ick URO 0.2 E.U. / dl Not Available In-Office Order Internal Use Only DO Not Attach Compendium DO Not Attach Compendium, Do Not Delete/merge, [id number] 09/04/2020 08:28:19 09/04/20 20 09/04/2020 urina lysis , dipst ick NIT negati ve Not Available In-Office Order Internal Use Only DO Not Attach Compendium DO Not Attach Compendium, Do Not Delete/merge, [id number] 09/04/2020 08:28:19 09/04/20 20 09/04/2020 urina lysis , dipst ick HARINI Negati ve Not Available In-Office Order Internal Use Only DO Not Attach Compendium DO Not Attach Compendium, Do Not Delete/merge, [id number] 09/04/2020 08:28:19 04/09/20 21 04/09/2021 cultu re, urine comments [facility] Of [address] [place] [address] Medic al [facility] dirk flores MD SOURC E: URINE ,MARCOS N CATCH ; Not Available [facility] [address] [place] [address], [address], 04/10/2021 10:05:38 04/09/20 21 04/10/2021 cultu re, urine urine culture [facility], [facility] [address] [facility] [place] [address] Medic al [facility] dirk flores MD COLLE CTION TIME: 10:00 :00 AM -04:0 0 URINE CULTU RE No growt h F Not Available [facility] [address] [place] [address], [address], 04/10/2021 10:05:38 04/09/20 21 04/09/2021 urina lysis , dipst ick GLU Negati ve Not Available In-Office Order Internal Use Only DO Not Attach Compendium DO Not Attach Compendium, Do Not Delete/merge, [id number] 04/09/2021 10:06:35 04/09/20 21 04/09/2021 urina lysis , dipst ick TERRENCE Negati ve Not Available In-Office Order Internal Use Only DO Not Attach Compendium DO Not Attach Compendium, Do Not Delete/merge, [id number] 04/09/2021 10:06:35 04/09/20 21 04/09/2021 urina lysis , dipst ick KET Negati ve Not Available In-Office Order Internal Use Only DO Not Attach Compendium DO Not Attach Compendium, Do Not Delete/merge, [id number] 04/09/2021 10:06:35 04/09/20 21 04/09/2021 urina lysis , dipst ick SG 1.015 Not Available In-Office Order Internal Use Only DO Not Attach Compendium DO Not Attach Compendium, Do Not Delete/merge, [id number] 04/09/2021 10:06:35 04/09/20 21 04/09/2021 urina lysis , dipst ick BLO Negati ve Not Available In-Office Order Internal Use Only DO Not Attach Compendium DO Not Attach Compendium, Do Not Delete/merge, [id number] 04/09/2021 10:06:35 04/09/20 21 04/09/2021 urina lysis , dipst ick pH 6.5 Not Available In-Office Order Internal Use Only DO Not Attach Compendium DO Not Attach Compendium, Do Not Delete/merge, [id number] 04/09/2021 10:06:35 04/09/20 21 04/09/2021 urina lysis [...] DO Not Attach Compendium, Do Not Delete/merge, [id number] 04/09/2021 10:06:35 04/09/20 21 04/09/2021 urina lysis , dipst ick NIT negati ve Not Available In-Office Order Internal Use Only DO Not Attach Compendium DO Not Attach Compendium, Do Not Delete/merge, [id number] 04/09/2021 10:06:35 04/09/20 21 04/09/2021 urina lysis , dipst ick HARINI Negati ve Not Available In-Office Order Internal Use Only DO Not Attach Compendium DO Not Attach Compendium, Do Not Delete/merge, [id number] 04/09/2021 10:06:35 10/01/20 20 09/30/2020 MAMMO , scree galindo, digit al, bilat eral No observ ation record ed. Not Available 09/09 10:02:49 Result Notes None recorded. Problems Name Problem SNOMED Code Status Onset Date Resolution Date Notes Provider Name and Address Organization Details Recorded Time Lichen sclerosus et atrophicus Active Kathy Mac MD [address] [facility], [address], [place], [address] , [place] - [facility], 6 10:38:18 Candidal vulvovagin itis 52213353 Active Kathy Mac MD [address], [place], [address], [place] - [facility], 6 11:16:16 Dysuria 43156751 Active MD Danilo Garsia,[address], [place], [address], [place] - [facility], 6 10:38:18 Acute lower urinary tract infection 252933966 Active 01/2018: She was having recurrent UTI in 2016, began using the Estrace vaginal cream regularly and the UTIs resolved, she stopped the cream 4 months ago and is now having recurrent UTI again. 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 Kathy Mac MD [address], [place], [address], [place] - [facility], 6 10:38:18 Menopausal syndrome 912331856 Active MD Danilo Garsia,[address], [place], [address], [place] - [facility], 6 10:38:18 Vaginal wall prolapse 594113801 Active Kathy Mac MD [address], [place], [address], [place] - [facility], 6 10:38:18 Recurrent urinary tract infection 301655430 Active 2017 Kathy Mac MD [address], [place], [address], [place] - [facility], 8 08:34:11 Candidiasi s of skin 34627552 Active 2018 Kathy Mac MD [address], [place], [address], [place] - [facility], 9 10:10:38 Problem Notes None recorded. Procedures Surgical History Date Name Laterality Status Provider Name and Address Organization Details Recorded Time 04/01/20 21 procedure on knee completed Tequila Mosley [place] - [facility], 04/09/2021 10:05:05 10/13/20 18 Hernia repair w/mesh completed Malini Irvin [place] - [facility], 05/09/2019 13:40:35 05/10/20 17 Other completed Tequila Mosley [place] - [facility], 01/14/2018 10:13:37 05/08/20 15 Other completed Tequila Mosley [place] - [facility], 12/18/2015 08:52:00 02/28/20 14 Other completed Malini Irvin [place] - [facility], 04/10/2014 08:10:20 08/08/20 12 Hernia repair w/mesh completed Kathy Mac MD [address], [place], [address], [place] - [facility], 01/03/2013 10:21:46 02/07/20 11 Other completed Kathy Mac MD [address], [place], [address], [place] - [facility], 01/03/2013 10:21:26 11/08/18 87 Hysterectomy completed Kathy Mac MD [address], [place], [address], [place] - [facility], 01/03/2013 09:34:42 Imaging Results Imaging Date Name Status LastModified by [facility] Details LastModified Time 09/30/2020 MAMMO, screening, [...] Not Available Not Available No t Available premarin vag cre 0.625mg active Not Available Not Available Not Available estradiol tab 1mg active Not Available Not Available Not Available estrace 0.1 mg/gm crea active Not Available Not Available N ot Available topiramate tab 25mg active Not Available Not Available Not Available cephalexin cap 500mg active Not Available Not Available No t Available triamcinolo ne acetonide 0.1 % oint active Not Available Not Available N ot Available but/apap/ca f tab active Not Available Not Available Not Available oxycodone hcl 5 mg tabs active [...] Not Available Not Available Not Available hydroxyzine pamoate 25 mg caps active Not Available Not Available Not Available zolpidem tab 10mg active Not Available Not Available Not Available ibuprofen 600 mg tabs 01/14 completed Not Available Not Available Not Available trazodone hcl 50 mg tabs active [...] Not Available No t Available Flucelvax Quad 5566-8026 (PF) 60 mcg (15 mcg x 4)/0.5 [...] 9 151.77 cm 81 /min 23.6 kg/m2 79542.0 8 g 108 mm[Hg] 67 mm[Hg] Malini Irvin [place] - [facility], 9 08:42:16 Date Recorded Body weight Body mass index (BMI) Body height Body temperature Heart rate Systolic blood pressure Diastolic blood pressure Provider Name and Address Organization Details Last Updated DateTime 0 93450.4 3 g 23.5 kg/m2 149.86 cm 97.5 [degF] 84 /min 119 mm[Hg] 80 mm[Hg] Tequila Mosley [place] - [facility], 0 08:21:45 Date Recorded Body height Provider Name an d Address Organization Details Last Updated DateTime 01/17/2021 149.86 cm Yolis Mancini [place] - [facility], 01/17/2021 13:41:09 Date Recorded Body height Body mass index (BMI) Body weight Body temperature Heart rate Systolic blood pressure Diastolic blood pressure Provider Name and Address Organization Details Last Updated DateTime 1 149.86 cm 22.9 kg/m2 56735.6 6 g 97 [degF] 85 /min 110 mm[Hg] 69 mm[Hg] Tequila Melany EATON - [facility], 1 10:03:36 Social History Question Answer Notes LastModified by Organizat ion Details LastModified Time Tobacco Smoking Status Former Smoker quit 30 yrs ago Not Available [facility] 09/10/2020 03:19:42 What Is Your Level Of Alcohol Consumption? Occasional [id number] Information not available 09/10/2020 What Is Your Level Of Caffeine Consumption? None [id number] Information not available 09/10/2020 What Type Of Diet Are You Following? REGULAR [id number] Information not available 09/10/2020 Which Illicit Or Recreational Drugs Have You Used? No [id number] Information not available 09/10/2020 Do You Reside In Or Have You Traveled To An Area Where Ebola Virus Transmission Is Active? No [id number] Information not available 09/10/2020 Do You Or [...] How Much Tobacco Do You Smoke? No [id number] Information not available 09/10/2020 General Stress Level Medium Information not available 10/25/2014 How Many Years Have You Smoked Tobacco? 12 [id number] Information not available 09/10/2020 Have You Recently (within The Last 12 Weeks, Or During A Current ) Traveled To Or Lived In A Zika-affected Area? No [email or web address] Information not available 01/01/2017 Sex: Female Functional Status Question Answer Note LastModified by Organization D etails LastModified Time What is your exercise level? Moderate [id number] Information not available 09/10/2020 Mental Status None [...] for MyRisk panel N Autoimmune Condition N Kidney or Bladder Problems Y Thyroid Problems N Depression N Lung Disease N GI Problems Y Defects or Inherited Disease N Anemia N History of Ovarian Cancer N History of Breast Cancer N HOWARD exposure N BRCA testing in past N Osteopenia N Psychiatric Illness N Anxiety Disorder N Diabetes N Arthritis Y Headaches or Migraines Y Infertility N Asthma N History of Cancer N Endometriosis N Hepatitis N Heart Disease N Hypertension [...] preservative 2 completed Kathy Mac MD [address] [facility],[address], [place], [address], [place] - [facility], 01/03/2013 09:34:42 Tdap 3 completed Tequila Taishajerodspencer dk [place] - [facility], 01/03/2013 09:07:00 Influenza, split virus, trivalent, preservative 3 completed Malini root [place] - [facility], 04/10/2014 08:09:01 Influenza, split virus, quadrivalent, preservative 4 completed Malini root [place] - [facility], 09/27/2014 09:22:18 Influenza, split virus, trivalent, preservative 5 completed Tequilaangel Stokesmarcelaspencer dk [place] - [facility], 12/18/2015 08:52:00 influenza, unspecified formulation 6 completed Malini Caldwellesther dk [place] - [facility], 01/01/2017 08:48:33 Influenza, split virus, quadrivalent, preservative 8 completed Malini Alyssaemeliaesther root [place] [facility], 05/09/2019 13:39:08 Influenza, split virus, quadrivalent, preservative 0 completed Tequilaangel Mosley dk [place] - [facility], 09/04/2020 08:26:56 Past Encounters Encounter ID Performer Location Encounter Start Date Encounter Closed Date Diagnosis/Indication Diagnosis SNOMED-CT Code Diagnosis ICD10 Code Diagnosis Note [id number] Malini MAC MD [address] [facility] [place] [address] 01/03/2013 08:41:17 01/03/2013 15:41:19 [id number] Malini MAC MD [address] [facility] [place] [address] 04/10/2014 07:54:52 04/10/2014 09:52:01 Specialized medical examination [id number] Screening mammography [id number] Lichen scl erosus et atrophicus [id number] Tequila MAC MD [address] [facility] [facility] [address] [place] [address] 09/27/2014 09:07:30 09/27/2014 11:01:44 Candidal vulvovaginitis [id number] Dysuria 56625031 Atrophic vulvovaginitis 89903043 52077 Malini Irvin KATHY MAC MD [address] [place] [address],[facility] [place] [address] 10/25/2014 08:38:48 10/25/2014 13:02:34 Lichen sclerosus et atrophicus [id number] Atrophic vulvovaginitis 26156629 Vaginal wall prolapse [id number] Dysuria 55602254 [id number] MD KATHY Garsia MD [address] [place] [address],[facility] [place] [address] 12/18/2015 08:42:49 12/18/2015 10:27:02 Specialized medical examination 60720745 Z01.419 Screening for malignant neoplasm of rectum 330962546 Z12.12 Screening mammography 24 996348 Z12.31 [id number] MD KATHY Garsia MD [address] [place] [address] [place] [address] 03/17/2016 08:05:52 03/17/2016 13:08:02 Acute lower urinary tract infection 695744190 R30.0 Lichen scl erosus et atrophicus 14423226 L90.0 [id number] MD KATHY Garsia MD [address] [place] [address],[facility] [place] [address] 03/25/2016 08:09:08 03/25/2016 11:27:44 Acute lower urinary tract infection 221707932 R30.0 [id number] MD KATHY Garsia MD [address] [place] [address],[facility] [place] [address] 06/09/2016 13:19:33 06/09/2016 15:02:07 Acute lower urinary tract infection 138738384 R30.0 [id number] MD KATHY Garsia MD [address] [place] [address],[facility] [place] [address] 01/01/2017 08:20:33 01/01/2017 11:37:45 Screening mammography 98149770 Z12.31 Specialize d medical examination 12312501 Z01.419 Screening for malignant neoplasm of rectum 945783328 Z12.12 Acute lowe r urinary tract infection 850428604 R30.0 Atrophic vulvovaginitis 18936687 N95.2 [id number] MD KATHY Garsia MD [address] [place] [address], [address] [place] [address] 01/18/2017 07:56:21 01/18/2017 12:14:44 Acute lower urinary tract infection 247663397 R30.0 Menopausal syndrome 1237 90022 N95.9 [id number] MD KATHY Garsia MD [address] [place] [address],[address] [address] 02/02/2017 13:10:08 02/02/2017 14:35:00 Acute lower urinary tract infection 787497713 R30.0 Candidal vulvovaginitis 90761828 B37.3 16523 MD KATHY Garsia MD [address] [place] [address] 5 01/14/2018 09:48:09 01/14/2018 12:05:08 Screening mammography 25574280 Z12.31 Acute lowe r urinary tract infection 694180817 R30.0 [id number] MD KATHY Garsia MD [address] [place] [address],[facility] [address] [place] [address] 5 02/01/2018 10:34:17 02/01/2018 14:39:06 Specialized medical examination 34408619 Z01.419 Screening for malignant neoplasm of rectum 064714066 Z12.12 Screening mammography 24 204074 Z12.31 Acute lowe r urinary tract infection 225836297 R30.0 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 27946 MD KATHY Garsia MD [address] [place] [address],[facility] [place] [address] 03/25/2018 08:27:29 03/25/2018 09:43:03 Recurrent urinary tract infection 006771360 N39.0 [id number] MD KATHY Garsia MD [address] [place] [address] [place] [address] 05/09/2019 13:20:47 05/09/2019 16:00:16 Screening mammography 89145833 Z12.31 Acute lowe r urinary tract infection 498761528 R30.0 Lichen scl erosus et atrophicus 69945349 L90.0 Atrophic vulvovaginitis 90859813 N95.2 Candidal vulvovaginitis 07589709 B37.3 39548 MD KATHY Garsia MD [address] [place] [address] 5 06/01/2019 09:24:51 06/01/2019 12:01:30 Acute lower urinary tract infection 084888284 R30.0 Specialize d medical examination 51981952 Z01.419 Screening for malignant neoplasm of rectum 607306619 Z12.12 Screening mammography 24 499938 Z12.31 Candidiasis of skin 4988 3006 B37.2 73018 MD KATHY Garsia MD [address] [place] [address] 5 06/02/2019 13:09:32 06/02/2019 15:47:06 Urinary tract infectious disease 70085217 N30.00 Candidal vulvovaginitis 26322369 B37.3 08855 MD KATHY Garsia MD [address] [place] [address] 5 06/15/2019 08:30:24 06/15/2019 11:52:18 Acute lower urinary tract infection 586418781 R30.0 50749 MD KATHY Garsia MD [address] [place] [address] 5 09/04/2020 08:18:37 09/04/2020 10:21:39 Specialized medical examination 43614477 Z01.419 Screening for malignant neoplasm of rectum 424533480 Z12.12 Screening mammography 24 796814 Z12.31 Atrophic vulvovaginitis 73091498 N95.2 Acute lowe r urinary tract infection 778664238 R30.0 Lichen scl erosus et atrophicus 45528699 L90.0 [id number] MD KATHY Garsia MD [address] [place] [address], [address] [place] [address] 12/20/2020 14:15:25 12/20/2020 15:50:42 Candidal vulvovaginitis 03018494 B37.3 Urinary tr act infectious disease 83843497 N30.00 [id number] MD KATHY Garsia MD [address] [place] [address], [place] [address] 01/17/2021 13:33:34 01/17/2021 15:25:30 Menopausal syndrome 233609238 N95.1 [id number] MD KATHY Garsia MD [address] [place] [address], [place] [address] 04/09/2021 09:52:20 04/10/2021 08:58:45 Acute lower urinary tract infection 168533074 R30.0 Lichen scl erosus et atrophicus 60257182 L90.0 Health Concerns Section Related Observation LastModified by Organization Detai ls LastModified Time None Recorded Concern Status LastModified by Organization Details LastModified Time None Recorded Advance Directives Directive None Recorded Payers Encounter Date Sequence Insurance Name Policy Number Policy Hall Covered Member ID Hall Member ID Guarantor Name 06/15/2019 1 [id number] Charlie Argiro [id number] Michelle Argiro 09/04/2020 1 [facility]) [id number] Charlie Argiro [id number] Michelle Argiro 12/20/[address] [place] [address] [id number] Charlie Argiro [id number] Michelle Argiro 01/17/2021 1 [facility]) [id number] Charlie Argiro [id number] Michelle Argiro 04/09/2021 1 [id number] Michelle Argiro [id number] Michelle Leairo Notes Date Note Type Note [...] too long. Kathy Mac MD [address], [place], [address], [facility], 06/15/2019 10:48:55 09/04/2020 text/html She is [...] could be ? Adithya, advised to see nitriles lab technician. RX NyStop pwsder for cutaenous monilia. She appears to be doing well. Continue E2 vaginal cream. Check urine culture for ZACK. Kathy Mac MD [address], [place], [address], [facility], 09/04/2020 08:54:49 12/20/2020 text/html This visit is a phone telehealth visit. The patient consented to the visit by phone. The patient was at home at the time of the call and the provider and patient were the only people on the line. I was at [address] [facility], [address], at the time of the call. She is in quarantine for possible exposure to covid. She is very, very sore when she urinates, she also has vaginal pruritus. She tried Monistat OTC. She does not have frequency or urgency. Kathy Mac MD [address] [facility],[address]ITE [facility], [place], [address], [facility], 12/20/2020 15:25:16 01/17/2021 text/html This visit is a phone telehealth visit. The patient consented to the visit by phone. The patient was at home at the time of the call and the provider and patient were the only people on the line. I was at [address] [place] [address], [address], at the time of the call. [...] her sister does. Kathy Mac MD [address] [facility],[address], [place], [address], [facility], 01/17/2021 14:40:11 04/09/2021 text/html She has had [...] she needed it. Kathy Mac MD [address] [facility],[address], [place], [address], [place] [facility], 04/09/2021 13:10:00 OBGyn Episode No OBEpisode recorded.
--- OUTSIDE RECORDS SUMMARY | 2025-03-01 13:02 | XMS_ITS | Clinical Summary ---
Author Organization [facility] Address [address] [place] [address] Care Team Providers Care Non Destructive Testing Scientist Name Role Phone Tamika Ward MD Primary [...] age to complete this topic Care Teams Non Destructive Testing Scientist Relationship Specialty Start Date End Date Tamika Ward MD PCP - General Internal Medicine 09/01/22
--- OUTSIDE RECORDS SUMMARY | 2025-03-01 13:02 | XMS_ITS | Encounter Summary ---
Author Organization [facility] Address [address] [place] [address] Care Team Providers Care Underwriting Assistant Name Role Phone Tamika Ward MD Primary Care Prov ider Reason for Visit * Reason Onset Date Comments jury duty 02/08/2025 Encounter Details Date Type Department Care Team (Late st Contact Info) Description 02/08/2025 Telephone Adult Medicine - [place] [address] [place] [id number] Tamika Ward MD [address] [place] [address] jury duty Social History Tobacco Use Types [...] to jury duty due to illness Badge# [phone] Pin # [id number] If any questions please call pt at [phone] Please call when letter is completed documented in this encounter Plan of Treatment Not on file documented as of this encounter Visit Diagnoses Not on filedocumented in this encounter Care Teams Underwriting Assistant Relationship Specialty Start Date End Date Tamika Ward MD [address] [place] [id number] PCP - General Internal Medicine 02/26/21 documented as of this encounter
== END 2025-02-28 11:03 | disposition home or self-care (01) ==
LOC: HO.HOSX 11:02
PROVIDERS: Visit Provider Physician Assistant
DX: M25.562 Pain in left knee (principal); S82.142A Displaced bicondylar fracture of left tibia, initial encounter for closed fracture; W18.31XA Fall on same level due to stepping on an object, initial encounter; Y93.9 Activity, unspecified; Y92.9 Unspecified place or not applicable; Y99.9 Unspecified external cause status; M25.462 Effusion, left knee
CPT/HCPCS: 73562; 99212

== ENCOUNTER 2025-04-12 08:47 | Outpatient (AMB) | payer MEDICARE, SELFPAY ==
--- NOTE | 2025-04-12 08:53 | A.OFFVIS_ITS ---
Vital Signs 04/12/25 09:03 Height 5 ft Weight 98 lb BMI 19.1 Intake Visit Reasons: OV - left lateral tibial plateau fx, DOI 02/03/25 Intake Note: Michelle is a 69 year old female who presents today status post left lateral tibial plateau fracture, DOI 02/03/25. Patient states she is doing well, havign some soreness in her knee at times. She mentions she has been doing her own emeries for her knee which help. Allergies No Known Allergies Allergy (Verified 04/12/25 09:03) HPI HPI OV - left lateral tibial plateau fx, DOI 02/03/25: Details: Ms. Abbott is a 69-year-old female who presents to the office today for routine follow-up of a left tibial plateau fracture. Date of injury was 02/03/2025. She presents to the office today in the ACL brace weight-bearing as tolerated. At her previous appointment on 02/28/2025 the patient was advised of the risks with weight-bearing activities and was advised to perform non weight-bearing activities for a total of 3 months status post injury. The patient denies any pain with the left lower extremity but does endorse some ?twinges?. PFS Surgical History (Updated 08/17/24 @ 11:57 by Courtney Souza [facility]) History of bladder surgery H/O: hysterectomy Hx of right knee surgery (~2017) Social History Alcohol intake: current Alcohol intake frequency: holidays/special occasions only Patient Tobacco Use Status: Never used Tobacco Current occupational status: retired Current occupation: Right hand dominant Review of Systems Const All systems reviewed & are unremarkable except as noted in HPI and below Physical Exam Vital Signs: BMI result Body Mass Index 19.1 Const General: cooperative, healthy appearing and no acute distress Resp Effort & Inspection: normal respiratory effort and able to speak in complete sentences Extrem Other: Left knee normal to inspection. No ecchymosis, erythema or joint effusion. No tenderness to palpation medial or lateral joint lines. Range of motion. NVI. Assessment & Plan Assessment & Plan (1) Fracture of left tibial plateau: Code(s): S82.142A - Displaced bicondylar fracture of left tibia, initial encounter for closed fracture Category: Medical Plan Ms. Abbott is a 69-year-old female who presents to the office today for routine follow-up of a left tibial plateau fracture. Date of injury was 02/03/2025. She presents to the office today in the ACL brace weight-bearing as tolerated. At her previous appointment on 02/28/2025 the patient was advised of the risks with weight-bearing activities and was advised to perform non weight-bearing activities for a total of 3 months status post injury. The patient denies any pain with the left lower extremity but does endorse some ?twinges?. While the office today, I did reiterate to the patient the importance of nonweightbearing for a total of 3 months status post injury. Patient reports that she is unable to do so because she strained a muscle in the left upper extremity resulting her not being able to use crutches to ambulate. She is using the ACL brace which is fully unlocked. She may continue to do so. Should the patient have sudden increase in pain she will contact our office or present to the emergency department immediately. I will see her back in 5-6 weeks with repeat x-rays, sooner if needed. X-rays of the left knee which were obtained while in the office today and were reviewed by me, Eulalia Castaneda PA-C, revealed routine healing lateral tibial plateau fracture with minimal displacement. Orders: Orders XR knee LT 2V Today M25.569 - Pain in unspecified knee Coding Level of Care Code Global (10817) Diagnoses Fracture of left tibial plateau S82.142A
[2025-04-12 09:03] VITALS: BMI 19.1
== END 2025-04-12 09:19 | disposition home or self-care (01) ==
LOC: HO.HOS 08:47
PROVIDERS: Visit Provider Physician Assistant
DX: S82.142A Displaced bicondylar fracture of left tibia, initial encounter for closed fracture (principal)
CPT/HCPCS: 99213

== ENCOUNTER → 2025-04-12 08:50 | Outpatient (BNV) | payer MEDICARE, SELFPAY | PROVIDERS: Visit Provider Radiology Diagnostic Radiology | DX: M25.562 Pain in left knee (principal) | CPT/HCPCS: 73560 ==

== ENCOUNTER 2025-04-12 11:04 | Outpatient (REF) | payer MEDICARE, SELFPAY ==
--- NOTE | ~2025-04-12 | XR_ITS ---
CLINICAL HISTORY: M25.569 - Pain in unspecified knee --- Additional Notes or Special Instructions: AP and lateral 2 view left knee Comparison: DX/OR/SR - XR KNEE LT 3V - 02/28/25 08:28 EDT Findings: No fractures or dislocations. No significant change in the focal lytic area with sclerotic margins in the lateral tibial plateau. Mild tricompartmental joint space narrowing with degenerative spurring is redemonstrated. Interval resolution of the suprapatellar joint effusion. No radiopaque foreign body. IMPRESSION: 1. No acute fracture, dislocation or significant joint effusion. 2. Stable abnormality in the lateral tibial plateau with overall chronic appearance remains technically indeterminate. This document has been electronically signed by: Gretchen Craig DO on 04/12/2025 14:13:44
== END 2025-04-12 11:05 | disposition home or self-care (01) ==
LOC: HO.HOSX 11:04
PROVIDERS: Visit Provider Physician Assistant
DX: M25.562 Pain in left knee (principal); S82.142A Displaced bicondylar fracture of left tibia, initial encounter for closed fracture; W18.31XA Fall on same level due to stepping on an object, initial encounter; Y93.01 Activity, walking, marching and hiking; Y92.009 Unspecified place in unspecified non-institutional (private) residence as the place of occurrence of the external cause; Y99.9 Unspecified external cause status
CPT/HCPCS: 73560; 99212

== ENCOUNTER 2025-05-30 11:29 | Outpatient (REF) | payer MEDICARE, SELFPAY ==
--- OUTSIDE RECORDS SUMMARY | 2025-05-30 12:28 | XMS_ITS ---
Author Name [facility] Organization Unknown History of Medication Use Medication [...] Antigen Home Test kit USE DIRECTED PER THREADER OPERATOR INSTRUCTIONS TO TEST FOR COVID-19 01/14/2024 active [...] Diagnosis Location Date Ambulatory [facility] 01/27/2024 Ambulatory [facility] 01/14/2024 Ambulatory [facility] 01/14/2024 Ambulatory [facility] 05/25/2023 Ambulatory [facility] 05/21/2023 Ambulatory [facility] 05/21/2023 Ambulatory [facility] 03/29/2023 Care Team Organization Name Specialty Phone Email Start Date End Da te [facility] CLAUDIA BAJWA Primary [facility] 04/16/2023 06/26/2024 [facility] RIGO DEJESUS Primary Care 11/16/20222023 [facility] RAKEL BAJWA Primary Care 10/08/2022 06/26/2024 [facility] NGA Goins Primary Care 09/15/202206/08
--- OUTSIDE RECORDS SUMMARY | 2025-05-30 12:28 | XMS_ITS | Data Portability ---
Author Organization [place] [facility] KATHY MAC MD Address [address] [facility] [address] [place] [address] Care Team Providers Care Glove Cutter Name Role Phone ANCHOR-CHLOE HERRERA Primary Care Provider Assessment No assessment recorded. Plan of Treatment Reminders Order Date Submit Date Provider Last Modified By Organization Details Last Modified Time Details Appointments None recorded. Lab urinalysi s, dipstick 2020 021 [email or web address] 1 In-Office Order, Internal Use Only DO Not Attach Compendium DO Not Attach Compendium, Do Not Delete/merge, [id number] 1 13:00:50 culture, urine 2020 021 [employer], [address] [place], [address], 1 10:05:38 pap test, thinprep, cervical 2019 020 [email or web address] [facility], Cytopathology Service, [address] [place], [address], 0 07:38:33 urinalysi s, dipstick 2019 020 [email or web address] In-Office Order, Internal Use Only DO Not Attach Compendium DO Not Attach Compendium, Do Not Delete/merge, [id number] 0 07:38:33 culture, urine 2019 020 [employer], [address] [place], [address], 0 08:19:19 fecal occult blood, stool 2019 020 [email or web address] In-Office Order, Internal Use Only DO Not Attach Compendium DO Not Attach Compendium, Do Not Delete/merge, [id number] 0 07:38:32 urinalysi s, dipstick 2018 019 [email or web address] In-Office Order, Internal Use Only DO Not Attach Compendium DO Not Attach Compendium, Do Not Delete/merge, [id number] 9 11:51:59 culture, urine 2018 019 [employer], [address] [place], [address], 9 12:58:29 Referral None recorded. Procedures None recorded. Surgeries None recorded. Imaging MAMMO, screening , digital, bilateral 2019 020 [facility] ([facility]), [address] [place], [address], 0 09:11:01 Medication Orders estradiol 1 mg tablet 2020 021 INTERFACE [facility], [address] [place] [address], [address], 1 13:54:38 progester one micronize d 200 mg capsule 2020 021 INTERFACE [facility], [address] [place] [address], [address], 1 13:54:38 nitrofura ntoin monohydra te/macroc rystals 100 mg capsule 2020 021 [email or web address] [facility], [address] [place] [address], [address], 1 13:42:05 fluconazo le 150 mg tablet 2020 021 [email or web address] [facility], [address] [place] [address], [address], 1 13:41:55 estradiol 0.01% (0.1 mg/gram) vaginal cream 2019 020 INTERFACE [facility], [address] [place] [address], [address], 0 08:53:45 triamcino lone acetonide 0.1 % topical cream 2019 [email or web address] [facility], [address] [place], [address], 13:42:23 Patient TargetsNo targets recorded. Patient Instructions Encounter Date Encounter Id Patient Instructions Last Modified By Organization Details Last Modified Time 06/15/2019 [id number] urinary tract infection in women information Not [...] 25 minutes Not available 06/15/2019 10:48:41 09/04/2020 [id number] learning about healthy weight Not available 09/04/2020 [...] could be ? Adithya, advised to see potato pancake frier. RX Erika rodas for cutaenous monilia. She [...] questions answered. Not available 09/04/2020 08:54:19 12/20/2020 [id number] Urinary Tract Infection (UTI) in Women: Care Inst[facility] Not available 12/20/2020 14:25:13 vaginal yeast infection: care instructions [facility] Not available 12/20/2020 14:25:14 This visit is a phone telehealth visit. The patient consented to the visit by phone. The patient was at home at the time of the call and the provider and patient were the only people on the line. I was at [address] [place] [address], at the time of the call. She [...] evaluation. Face to face discussion 30 minutes [facility] Not available 12/20/2020 14:27:31 01/17/2021 [id number] This visit is a phone telehealth visit. The patient consented to the visit by phone. The patient was at home at the time of the call and the provider and patient were the only people on the line. I was at [address] [place] [address], at the time of the call. She [...] 30 minutes. Not available 01/17/2021 13:59:32 04/09/2021 [id number] urinary tract infection in women information Not [...] Abnormal Flag Note LastModifiedBy Organization Detail LastModifiedTime 09/04/2009/04/2020 fecal occul t blood , stool Occult Blood negati ve Not Available In-Office Order Internal Use Only DO Not Attach Compendium DO Not Attach Compendium, Do Not Delete/merge, [id number] 09/04/2020 08:21:16 06/01/20 19 06/01/2019 fecal occul t blood , stool Occult Blood negati ve Not Available In-Office Order Internal Use Only DO Not Attach Compendium DO Not Attach Compendium, Do Not Delete/merge, [id number] 06/01/2019 09:43:53 06/01/20 19 06/01/2019 cultu re, urine comments [facility] [address] [facility] [place] [address] Medic al Dire dirk flores MD [facility] E: URINE ,MARCOS N CATCH ; Not Available [facility] [address] [facility], [place], [address], 06/03/2019 08:22:04 06/01/20 19 06/02/2019 cultu re, urine urine culture [facility] howard, [facility] [address] [place] [address] Medic al [facility] MD ALEXANDER Hutson CTION TIME: 2018 9:30: 00 AM -04:0 0 URINE CULTU RE KLEBS IELLA PNEUM O. SSP PNEUM O. ( KLEPS P ) F URINE CULTU RE COLON Y COUNT F URINE CULTU RE >100, 000 F Not Available [facility] [address] [place] [address], [id number], 06/03/2019 08:22:04 06/01/20 19 06/01/2019 antib iotic sensi tivit y, isola te comments PAREN T ORGAN ISM: KLEBS IELLA PNEUM O. SSP PNEUM O. ( KLEPS P ) [facility] jennifer lawrence, a [facility] [facility] [address] [place] [address] Medic al [facility] dirk flores MD SOUR E: URINE ,MARCOS N CATCH ; Not Available [facility] [address] [place] [address], [address], 06/03/2019 08:22:12 06/01/20 19 06/02/2019 antib iotic sensi tivit y, isola te gram negative susceptibili ty [facility] jennifer lawrence, [facility] [place] [address] Medic al [facility] MD ALEXANDER Hutson CTION TIME: [...] S F Not Available [facility] [address] [place], [address], 06/03/2019 08:22:12 06/01/20 19 06/01/2019 pap, LB [id number] ThinP rep Pap, Image d: NEGAT HOLLY FOR SQUAM OUS INTRA EPITH ELIAL LESIO N AND MALIG BLAYNE . React holly cellu lar guevara es. Lizzeth da is prese nt. Savannah [...] CERVI X, LPS = NEG Not Available [facility] Cytopathology Service [address] [place], [address], 06/06/2019 14:53:45 06/01/2006/01/2019 urina lysis , dipst ick GLU Negati ve Not Available In-Office Order Internal Use Only DO Not Attach Compendium DO Not Attach Compendium, Do Not Delete/merge, 06/01/2019 09:31:27 06/01/2006/01/2019 urina lysis , dipst ick TERRENCE Negati ve Not Available In-Office Order Internal Use Only DO Not Attach Compendium DO Not Attach Compendium, Do Not Delete/merge, 06/01/2019 09:31:27 06/01/2006/01/2019 urina lysis , dipst ick KET Negati ve Not Available In-Office Order Internal Use Only DO Not Attach Compendium DO Not Attach Compendium, Do Not Delete/merge, [id number] 06/01/2019 09:31:27 06/01/2006/01/2019 urina lysis , dipst ick SG 1.015 Not Available In-Office Order Internal Use Only DO Not Attach Compendium DO Not Attach Compendium, Do Not Delete/merge, [facility] 06/01/2019 09:31:27 06/01/2006/01/2019 urina lysis , dipst ick BLO Negati ve Not Available In-Office Order Internal Use Only DO Not Attach Compendium DO Not Attach Compendium, Do Not Delete/merge, [facility] 06/01/2019 09:31:27 06/01/2006/01/2019 urina lysis , dipst ick pH 7.0 Not Available In-Office Order Internal Use Only DO Not Attach Compendium DO Not Attach Compendium, Do Not Delete/merge, [id number] 06/01/2019 09:31:27 06/01/2006/01/2019 urina lysis , dipst ick PRO Negati ve Not Available In-Office Order Internal Use Only DO Not Attach Compendium DO Not Attach Compendium, Do Not Delete/merge, [id number] 06/01/2019 09:31:27 06/01/2006/01/2019 urina lysis , dipst ick URO 0.2 E.U. / dl Not Available In-Office Order Internal Use Only DO Not Attach Compendium DO Not Attach Compendium, Do Not Delete/merge, [id number] 06/01/2019 09:31:27 06/01/20 19 06/01/2019 urina lysis , dipst ick NIT negati ve Not Available In-Office Order Internal Use Only DO Not Attach Compendium DO Not Attach Compendium, Do Not Delete/merge, 06/01/2019 09:31:27 06/01/20 19 06/01/2019 urina lysis , dipst ick HARINI Small Not Available In-Office Order Internal Use Only DO Not Attach Compendium DO Not Attach Compendium, Do Not Delete/merge, [facility] 06/01/2019 09:31:27 06/15/2006/15/2019 cultu re, urine comments [facility], [facility] Of [address] [place] [address] Medic al [facility] dirk flores MD SOURC E: URINE ,MARCOS N CATCH ; Not Available [facility] [address] [place] [address], [address], 06/16/2019 12:58:29 06/15/20 19 06/16/2019 cultu re, urine urine culture [facility], [facility] [address] [facility] [place] [address] Medic al [facility] dirk flores MD COLLE CTION TIME: 019 8:30: 00 AM -04:0 0 URINE CULTU RE <10,0 00 CFU/m L F URINE CULTU RE GRAM POSIT HOLLY COCCI and GRAM NEGAT HOLLY BACIL LI F Not Available [facility] [address] [place] [address], [id number], 06/16/2019 12:58:29 06/15/20 19 06/15/2019 urina lysis , dipst ick GLU Negati ve Not Available In-Office Order Internal Use Only DO Not Attach Compendium DO Not Attach Compendium, Do Not Delete/merge, [id number] 06/15/2019 08:43:46 06/15/20 19 06/15/2019 urina lysis , dipst ick TERRENCE Negati ve Not Available In-Office Order Internal Use Only DO Not Attach Compendium DO Not Attach Compendium, Do Not Delete/merge, [id number] 06/15/2019 08:43:46 06/15/2006/15/2019 urina lysis , dipst ick KET Negati ve Not Available In-Office Order Internal Use Only DO Not Attach Compendium DO Not Attach Compendium, Do Not Delete/merge, [id number] 06/15/2019 08:43:46 06/15/2006/15/2019 urina lysis , dipst ick SG 1.015 Not Available In-Office Order Internal Use Only DO Not Attach Compendium DO Not Attach Compendium, Do Not Delete/merge, [facility] 06/15/2019 08:43:46 06/15/2006/15/2019 urina lysis , dipst ick BLO Negati ve Not Available In-Office Order Internal Use Only DO Not Attach Compendium DO Not Attach Compendium, Do Not Delete/merge, [facility] 06/15/2019 08:43:46 06/15/20 19 06/15/2019 urina lysis , dipst ick pH 5.0 Not Available In-Office Order Internal Use Only DO Not Attach Compendium DO Not Attach Compendium, Do Not Delete/merge, [facility] 06/15/2019 08:43:46 06/15/20 19 06/15/2019 urina lysis , dipst ick PRO Negati ve Not Available In-Office Order Internal Use Only DO Not Attach Compendium DO Not Attach Compendium, Do Not Delete/merge, [facility] 06/15/2019 08:43:46 06/15/20 19 06/15/2019 urina lysis , dipst ick URO 0.2 E.U. / dl Not Available In-Office Order Internal Use Only DO Not Attach Compendium DO Not Attach Compendium, Do Not Delete/merge, [facility] 06/15/2019 08:43:46 06/15/2006/15/2019 urina lysis , dipst ick NIT negati ve Not Available In-Office Order Internal Use Only DO Not Attach Compendium DO Not Attach Compendium, Do Not Delete/merge, [facility] 06/15/2019 08:43:46 06/15/20 19 06/15/2019 urina lysis , dipst ick HARINI Negati ve Not Available In-Office Order Internal Use Only DO Not Attach Compendium DO Not Attach Compendium, Do Not Delete/merge, [facility] 06/15/2019 08:43:46 09/04/20 20 09/04/2020 cultu re, urine comments [facility], [facility] [address] [facility] [place] [address] Medic al Dire dirk flores MD SOUR E: URINE ,MARCOS N CATCH ; Not Available [facility] [address] [facility], [place], [address], 09/05/2020 08:19:19 09/04/20 20 09/05/2020 cultu re, urine urine culture [facility], a [facility] r of [facility] [address] [facility] [place] [address] Medic al Direc MD ALEXANDER Hutson CTION TIME: 09/04 8:30: 00 AM -04:0 0 URINE CULTU RE No growt h F Not Available [facility] [address] [place], [address], 09/05/2020 08:19:19 09/04/20 20 09/04/2020 pap, LB [id number] ThinP rep Pap, Image d: NEGAT HOLLY FOR SQUAM OUS INTRA EPITH ELIAL LESIO N AND MALIG BLAYNE . Savannah Maloney , CT( CP) (Case elect kirsten tono [place] 09 06 2020) ADEQU ACY: Satis facto ry . SOURC E: ThinP rep Pap HPV IF ASCUS , Vagin al, Image d CLINI MYRIAM INFOR MATIO N: HPV If Diagn osis of ASCUS . lps neg, z12.4 , z01.4 19 Not Available [facility] [address] [place], [address], 09/06/2020 12:26:07 09/04/20 20 09/04/2020 urina lysis , dipst ick GLU Negati ve Not Available In-Office Order Internal Use Only DO Not Attach Compendium DO Not Attach Compendium, Do Not Delete/merge, [id number] 09/04/2020 08:28:19 09/04/20 20 09/04/2020 urina lysis , dipst ick TERRENCE Negati ve Not Available In-Office Order Internal Use Only DO Not Attach Compendium DO Not Attach Compendium, Do Not Delete/merge, [id number] 09/04/2020 08:28:19 09/04/20 20 09/04/2020 urina lysis , dipst ick KET Negati ve Not Available In-Office Order Internal Use Only DO Not Attach Compendium DO Not Attach Compendium, Do Not Delete/merge, [id number] 09/04/2020 08:28:19 09/04/20 20 09/04/2020 urina lysis , dipst ick SG 1.010 Not Available In-Office Order Internal Use Only DO Not Attach Compendium DO Not Attach Compendium, Do Not Delete/merge, [id number] 09/04/2020 08:28:19 09/04/20 20 09/04/2020 urina lysis , dipst ick BLO Negati ve Not Available In-Office Order Internal Use Only DO Not Attach Compendium DO Not Attach Compendium, Do Not Delete/merge, [id number] 09/04/2020 08:28:19 09/04/20 20 09/04/2020 urina lysis , dipst ick pH 6.0 Not Available In-Office Order Internal Use Only DO Not Attach Compendium DO Not Attach Compendium, Do Not Delete/merge, [id number] 09/04/2020 08:28:19 09/04/20 20 09/04/2020 urina lysis , dipst ick PRO Negati ve Not Available In-Office Order Internal Use Only DO Not Attach Compendium DO Not Attach Compendium, Do Not Delete/merge, 09/04/2020 08:28:19 09/04/20 20 09/04/2020 urina lysis , dipst ick URO 0.2 E.U. / dl Not Available In-Office Order Internal Use Only DO Not Attach Compendium DO Not Attach Compendium, Do Not Delete/merge, [id number] 09/04/2020 08:28:19 09/04/20 20 09/04/2020 urina lysis , dipst ick NIT negati ve Not Available In-Office Order Internal Use Only DO Not Attach Compendium DO Not Attach Compendium, Do Not Delete/merge, 09/04/2020 08:28:19 09/04/20 20 09/04/2020 urina lysis , dipst ick HARINI Negati ve Not Available In-Office Order Internal Use Only DO Not Attach Compendium DO Not Attach Compendium, Do Not Delete/merge, [id number] 09/04/2020 08:28:19 04/09/20 21 04/09/2021 cultu re, urine comments [facility] Of [address] [place] [address] Medic al [facility] dirk flores MD SOURC E: URINE ,MARCOS N CATCH ; Not Available [facility] [address] [place] [address], [id number], 04/10/2021 10:05:38 04/09/20 21 04/10/2021 cultu re, urine urine culture [facility], [facility] [address] [facility] [place] [address] Medic al [facility] dirk flores MD COLLE CTION TIME: 021 10:00 :00 AM -04:0 0 URINE CULTU RE No growt h F Not Available [facility] [address] [place] [address], [id number], 04/10/2021 10:05:38 04/09/20 21 04/09/2021 urina lysis , dipst ick GLU Negati ve Not Available In-Office Order Internal Use Only DO Not Attach Compendium DO Not Attach Compendium, Do Not Delete/merge, [id number] 04/09/2021 10:06:35 04/09/20 21 04/09/2021 urina lysis , dipst ick TERRENCE Negati ve Not Available In-Office Order Internal Use Only DO Not Attach Compendium DO Not Attach Compendium, Do Not Delete/merge, [id number] 04/09/2021 10:06:35 04/09/20 21 04/09/2021 urina lysis , dipst ick KET Negati ve Not Available In-Office Order Internal Use Only DO Not Attach Compendium DO Not Attach Compendium, Do Not Delete/merge, 04/09/2021 10:06:35 04/09/20 21 04/09/2021 urina lysis , dipst ick SG 1.015 Not Available In-Office Order Internal Use Only DO Not Attach Compendium DO Not Attach Compendium, Do Not Delete/merge, [id number] 04/09/2021 10:06:35 04/09/2004/09/2021 urina lysis , dipst ick BLO Negati ve Not Available In-Office Order Internal Use Only DO Not Attach Compendium DO Not Attach Compendium, Do Not Delete/merge, [id number] 04/09/2021 10:06:35 04/09/20 21 04/09/2021 urina lysis , dipst ick pH 6.5 Not Available In-Office Order Internal Use Only DO Not Attach Compendium DO Not Attach Compendium, Do Not Delete/merge, [facility] 04/09/2021 10:06:35 04/09/20 21 04/09/2021 urina lysis , dipst ick PRO Negati ve Not Available In-Office Order Internal Use Only DO Not Attach Compendium DO Not Attach Compendium, Do Not Delete/merge, [id number] 04/09/2021 10:06:35 04/09/20 21 04/09/2021 urina lysis , dipst ick URO 0.2 E.U. / dl Not Available In-Office Order Internal Use Only DO Not Attach Compendium DO Not Attach Compendium, Do Not Delete/merge, [id number] 04/09/2021 10:06:35 04/09/20 21 04/09/2021 urina lysis , dipst ick NIT negati ve Not Available In-Office Order Internal Use Only DO Not Attach Compendium DO Not Attach Compendium, Do Not Delete/merge, [id number] 04/09/2021 10:06:35 04/09/20 21 04/09/2021 urina lysis , dipst ick HARINI Negati ve Not Available In-Office Order Internal Use Only DO Not Attach Compendium DO Not Attach Compendium, Do Not Delete/merge, [id number] 04/09/2021 10:06:35 10/01/20 20 09/30/2020 MAMMO , scree galindo, digit al, bilat eral No observ ation record ed. Not Available 09/09 10:02:49 Result Notes None recorded. Problems Name Problem SNOMED Code Status Onset Date Resolution Date Notes Provider Name and Address Organization Details Recorded Time Lichen sclerosus et atrophicus Active Kathy Mac MD [address] [facility],[address], [place], [address], [place] [facility], 6 10:38:18 Candidal vulvovagin itis 46535615 Active Kathy Mac MD [address], [place], [address], [place] [facility], 6 11:16:16 Dysuria 47974323 Active Kathy Mac MD [address], [place], [address], [place] [facility], 6 10:38:18 Acute lower urinary tract infection 078276465 Active 01/2018: She was having recurrent UTI in 2016, began using the Estrace vaginal cream regularly and the UTIs resolved, she stopped the cream 4 months ago and is now having recurrent UTI again. 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 Kathy Mac MD [address], [place], [address], [place] [facility], 6 10:38:18 Menopausal syndrome 850006080 Active Kathy Mac MD [address], [place], [address], [place] [facility], 6 10:38:18 Vaginal wall prolapse 440918465 Active Kathy Mac MD [address], [place], [address], [place] [facility], 6 10:38:18 Arthritis 6543362 Active 2016 right knee Malini root [place] - [facility], 7 08:52:23 Recurrent urinary tract infection 687618629 Active 2017 Kathy Mac MD [address], [place], [address], [place] [facility], 8 08:34:11 Candidiasi s of skin 57284114 Active 2018 Kathy Mac MD [address], [place], [address], [place] [facility], 9 10:10:38 Problem Notes None recorded. Procedures Surgical History Date Name Laterality Status Provider Name and Address Organization Details Recorded Time 04/01/20 21 procedure on knee completed Tequila Mosley [place] - [facility], 04/09/2021 10:05:05 10/13/20 18 Hernia repair w/mesh completed Malini Irvin [place] - [facility], 05/09/2019 13:40:35 05/10/20 17 Other completed Tequila Mosley [place] - [facility], 01/14/2018 10:13:37 05/08/20 15 Other completed Tequila Mosley [place] - [facility], 12/18/2015 08:52:00 02/28/20 14 Other completed Malini Irvin [place] - [facility], 04/10/2014 08:10:20 08/08/20 12 Hernia repair w/mesh completed Kathy Mac MD [address], [place], [address], [place] - [facility], 01/03/2013 10:21:46 02/07/20 11 Other completed Kathy Mac MD [address], [place], [address], [place] - [facility], 01/03/2013 10:21:26 11/08/18 87 Hysterectomy completed Kathy Mac MD [address], [place], [address], [place] - [facility], 01/03/2013 09:34:42 Imaging Results None recorded. Procedure Notes None recorded. Medical Equipment None [...] Not Available No t Available Flucelvax Quad (PF) 60 mcg (15 mcg x 4)/0.5 mL IM syringe VACCINATI ON ADMINISTE RED BY PHARMACIS T active Not Available Not Available No t Available Afluria Qd (36 mos up)(PF)60 mcg (15 mcg x4)/0.5 mL IM syringe VACCINATI ON ADMINISTE RED BY PHARMACIS T active Not Available Not Available No t Available Vitals Date Recorded Body height Provider Name an d Address Organization Details Last Updated DateTime 01/17/2021 149.86 cm Yolis Fregoso in [facility], 01/17/2021 13:41:09 Date Recorded Body height Body mass index (BMI) Body weight Body temperature Heart rate Systolic And Diastolic Provider Name and Address Organization Details Last Updated DateTime 1 149.86 cm 22.9 kg/m2 60427.6 6 g 97 [degF] 85 /min 110/69 mm[Hg] Tequila Albert in [facility], 1 10:03:36 Date Recorded Body height Heart rate Body mass index (BMI) Body weight Systolic And Diastolic Provider Name and Address Organization Details Last Updated DateTime 06/15/2019 151.77 cm 81 /min 23.6 kg/m2 43997.08 g 108/67 mm[Hg] Malini Albert in [facility], 06/15/2019 08:42:16 Date Recorded Body weight Body mass index (BMI) Body height Body temperature Heart rate Systolic And Diastolic Provider Name and Address Organization Details Last Updated DateTime 0 57825.4 3 g 23.5 kg/m2 149.86 cm 97.5 [degF] 84 /min 119/80 mm[Hg] Tequila Sumnermadiha [place] - [facility], 0 08:21:45 Social History Question Answer Notes LastModified by Organizat ion Details LastModified Time Tobacco Smoking Status Former Smoker quit 30 yrs ago Not Available [facility] 09/10/2020 03:19:42 What Is Your Level Of Caffeine Consumption? None [id number] Information not available 09/10/2020 What Type Of Diet Are You Following? REGULAR [id number] Information not available 09/10/2020 Which Illicit Or Recreational Drugs Have You Used? No [id number] Information not available 09/10/2020 Do You Reside In Or Have You Traveled To An Area Where Ebola Virus Transmission Is Active? No [id number] Information not available 09/10/2020 Education 12 Information no t available 01/03/2013 How Many Days In The Past Year Have You Had A Heavy Drinking Consumption (4+ Female, 5+ Male)? 8 Information no t available 01/14/2018 High Number Of Sexual Partners No Information not available 06/09/2016 To Which Gender Do You Self-identify? Female Information not available 06/09/2016 Marital Status Informatio n not available 01/03/2013 What Was The Date Of Your Most Recent Tobacco Screening? 01/17/2021 [email or web address] Information not available 01/17/2021 Are You Sexually Active? No Information not available 09/04/2020 How Much Tobacco Do You Smoke? No [id number] Information not available 09/10/2020 General Stress Level Medium Information not available 10/25/2014 How Many Years Have You Smoked Tobacco? 12 [id number] Information not available 09/10/2020 Have You Recently (within The Last 12 Weeks, Or During A Current ) Traveled To Or Lived In A Zika-affected Area? No [email or web address] Information not available 01/01/2017 Sex: Female Functional Status Question Answer Note LastModified by Organizat ion Details LastModified Time What is your level of alcohol consumption? Occasional [id number] Information not available 09/10/2020 Do you or have you ever used smokeless tobacco? Never used smokeless tobacco Information not available 04/09/2021 What is your occupation? retire Information not available 09/04/2020 Do you or have you ever used e-cigarettes or vape? Never used electronic cigarettes Information not available 04/09/2021 What is your exercise level? Moderate [id number] Information not available 09/10/2020 Mental Status None [...] preservative 2 completed Kathy Mac MD [address], [place], [address], [facility], 01/03/2013 09:34:42 Tdap 3 completed [facility], 01/03/2013 09:07:00 Influenza, split virus, trivalent, preservative 3 completed [facility], 04/10/2014 08:09:01 Influenza, split virus, quadrivalent, preservative 4 completed Malini Caldwellesther root [facility], 09/27/2014 09:22:18 Influenza, split virus, trivalent, preservative 5 completed Tequila Sumnermarshauvaldomarcy root [facility], 12/18/2015 08:52:00 influenza, unspecified formulation 6 completed Malini Caldwellesther root [facility], 01/01/2017 08:48:33 Influenza, split virus, quadrivalent, preservative 8 completed Malini Caldwellesther root [facility], 05/09/2019 13:39:08 Influenza, split virus, quadrivalent, preservative 0 completed Tequilaangel Sumnermarshauvaldomarcy root [facility], 09/04/2020 08:26:56 Past Encounters Encounter ID Performer Location Encounter Start Date Encounter Closed Date Diagnosis/Indication Diagnosis SNOMED-CT Code Diagnosis ICD10 Code Diagnosis Note [id number] MD KATHY Garsia MD [facility] [employer] [place],[address] [place] [address] 01/03/2013 08:41:17 01/03/2013 15:41:19 [id number] MD KATHY Garsia MD [address] [place] [address],[address] [place] [address] 04/10/2014 07:54:52 04/10/2014 09:52:01 Specialized medical examination [id number] Screening mammography 01224636 Lichen scl erosus et atrophicus 36854768 [id number] MD KATHY Garsia MD [address] [place] [address],[address] [place] [address] 09/27/2014 09:07:30 09/27/2014 11:01:44 Candidal vulvovaginitis 94780495 Dysuria 41956667 Atrophic vulvovaginitis 22289003 [id number] MD KATHY Garsia MD [address] [place] [address],[address] [place] [address] 10/25/2014 08:38:48 10/25/2014 13:02:34 Lichen sclerosus et atrophicus [id number] Atrophic vulvovaginitis 46269916 Vaginal wall prolapse 513846318 Dysuria 63446915 [id number] MD KATHY Garsia MD [address] [place] [address], [place] [address] 12/18/2015 08:42:49 12/18/2015 10:27:02 Specialized medical examination 14315085 Z01.419 Screening for malignant neoplasm of rectum 440902094 Z12.12 Screening mammography 24 035205 Z12.31 [id number] MD KATHY Garsia MD [address] [place] [address], [place] [address] 03/17/2016 08:05:52 03/17/2016 13:08:02 Acute lower urinary tract infection 603261700 R30.0 Lichen scl erosus et atrophicus 42005622 L90.0 [id number] MD KATHY Garsia MD [address] [place] [address], [place] [address] 03/25/2016 08:09:08 03/25/2016 11:27:44 Acute lower urinary tract infection 439411153 R30.0 [id number] MD KATHY Garsia MD [address] [place] [address], [place] [address] 06/09/2016 13:19:33 06/09/2016 15:02:07 Acute lower urinary tract infection 468917970 R30.0 [id number] MD KATHY Garsia MD [address] [place] [address], [place] [address] 01/01/2017 08:20:33 01/01/2017 11:37:45 Screening mammography 36672533 Z12.31 Specialize d medical examination 89904157 Z01.419 Screening for malignant neoplasm of rectum 921689822 Z12.12 Acute lowe r urinary tract infection 464782996 R30.0 Atrophic vulvovaginitis 19921894 N95.2 [id number] MD KATHY Garsia MD [address] [place] [address], [place] [address] 01/18/2017 07:56:21 01/18/2017 12:14:44 Acute lower urinary tract infection 122467586 R30.0 Menopausal syndrome 1237 72287 N95.9 [id number] MD KATHY Garsia MD [address] [place] [address],[facility] [place] [address] 02/02/2017 13:10:08 02/02/2017 14:35:00 Acute lower urinary tract infection 858908155 R30.0 Candidal vulvovaginitis 94632267 B37.3 [id number] MD KATHY Garsia MD [address] [place] [address],[facility] [place] [address] 01/14/2018 09:48:09 01/14/2018 12:05:08 Screening mammography 50420516 Z12.31 Acute lowe r urinary tract infection 993120514 R30.0 [id number] MD KATHY Garsia MD [address] [place] [address],[facility] [place] [address] 02/01/2018 10:34:17 02/01/2018 14:39:06 Specialized medical examination 11851929 Z01.419 Screening for malignant neoplasm of rectum 192149453 Z12.12 Screening mammography 24 192326 Z12.31 Acute lowe r urinary tract infection 688516924 R30.0 Atrophic vulvovaginitis 76476586 N95.2 Lichen scl erosus et atrophicus 70790713 L90.0 [id number] MD KATHY Garsia MD [address] [place] [address],[facility] [place] [address] 03/25/2018 08:27:29 03/25/2018 09:43:03 Recurrent urinary tract infection 393436460 N39.0 [id number] MD KATHY Garsia MD [address] [place] [address], [place] [address] 05/09/2019 13:20:47 05/09/2019 16:00:16 Screening mammography 63176457 Z12.31 Acute lowe r urinary tract infection 916526552 R30.0 Lichen scl erosus et atrophicus 92896669 L90.0 Atrophic vulvovaginitis 44591149 N95.2 Candidal vulvovaginitis 15397080 B37.3 [id number] MD KATHY Garsia MD [address] [place] [address], [place] [address] 06/01/2019 09:24:51 06/01/2019 12:01:30 Acute lower urinary tract infection 887680717 R30.0 Specialize d medical examination 09218960 Z01.419 Screening for malignant neoplasm of rectum 206986380 Z12.12 Screening mammography 24 586019 Z12.31 Candidiasis of skin 4988 3006 B37.2 [id number] MD KATHY Garsia MD [address] [place] [address], [address] [place] [address] 06/02/2019 13:09:32 06/02/2019 15:47:06 Urinary tract infectious disease 40051316 N30.00 Candidal vulvovaginitis 71292801 B37.3 [id number] MD KATHY Garsia MD [address] [place] [address] 06/15/2019 08:30:24 06/15/2019 11:52:18 Acute lower urinary tract infection 719899719 R30.0 [id number] MD KATHY Garsia MD [address] [place], [place] [address] [address] [place] [address] 09/04/2020 08:18:37 09/04/2020 10:21:39 Specialized medical examination 59967578 Z01.419 Screening for malignant neoplasm of rectum 939897024 Z12.12 Screening mammography 24 768874 Z12.31 Atrophic vulvovaginitis 25813927 N95.2 Acute lowe r urinary tract infection 974923571 R30.0 Lichen scl erosus et atrophicus 02118354 L90.0 [id number] MD KATHY Garsia MD [address] [place] [address], [address] [place] [address] 12/20/2020 14:15:25 12/20/2020 15:50:42 Candidal vulvovaginitis 71796703 B37.3 Urinary tr act infectious disease 38355061 N30.00 [id number] MD KATHY Garsia MD [address] [facility] [place] [address] 01/17/2021 13:33:34 01/17/2021 15:25:30 Menopausal syndrome 701443041 N95.1 [id number] MD KATHY Grasia MD [address] [facility] [place] [address] 04/09/2021 09:52:20 04/10/2021 08:58:45 Acute lower urinary tract infection 230067122 R30.0 Lichen scl erosus et atrophicus 23090163 L90.0 Health Concerns Section Related Observation LastModified by Organization Detai ls LastModified Time None Recorded Concern Status LastModified by Organization Details LastModified Time None Recorded Advance Directives Directive None Recorded Payers Insurance Date Sequence Insurance Name Policy Number Policy Hall Covered Member ID Hall Member ID Guarantor Name 06/23/2014 2 [facility] [id number] 01 Charlie Argiro [id number] Michelle Argiro 03/25/2018 1 [facility]) [id number] Michelle Argiro [id number] Michelle Argiro 04/09/2021 1 [facility]) [id number] Charlie Argiro [id number] Michelle Argiro 04/09/[address] [place] [address] [id number] Michelle Argiro [id number] Michelle Argiro Notes Date Note Type Note Provider Name and Address Organization Details Recorded Time 06/15/2019 text/html She is here for follow up after recent UTI, it took a while to clear but she finally feels as if her symptoms are fully resolved. She believes it may have started because, I had to hold my urine for too long. Kathy Mac MD [address], [place], [address], [place] [facility], 06/15/2019 10:48:55 09/04/2020 text/html She is here [...] could be ? Adithya, advised to see potato pancake frier. RX NyStop pwsder for cutaenous monilia. She appears to be doing well. Continue E2 vaginal cream. Check urine culture for ZACK. Kathy Mac MD [address] [place] [address],[facility] [address], [place], [address], [place] [facility], 09/04/2020 08:54:49 12/20/2020 text/html This visit is a phone telehealth visit. The patient consented to the visit by phone. The patient was at home at the time of the call and the provider and patient were the only people on the line. I was at [address] [place] [address], [facility] [address], [place], [place], at the time of the call. She is in quarantine for possible exposure to covid. She is very, very sore when she urinates, she also has vaginal pruritus. She tried Monistat OTC. She does not have frequency or urgency. Kathy Mac MD [address] [facility], [place], [address], [facility] - [facility], 12/20/2020 15:25:16 01/17/2021 text/html This visit is a phone telehealth visit. The patient consented to the visit by phone. The patient was at home at the time of the call and the provider and patient were the only people on the line. I was at [address] [facility], [address], [place], [place], at the time of the call. She [...] her sister does. Kathy Mac MD [address], [place], [address], [facility] - [facility], 01/17/2021 14:40:11 04/09/2021 text/html She has had [...] she needed it. Kathy Mac MD [address], [place], [address], [place] [facility], 04/09/2021 13:10:00 OBGyn Episode No OBEpisode recorded.
--- OUTSIDE RECORDS SUMMARY | 2025-05-30 12:28 | XMS_ITS | Clinical Summary ---
Author Organization [facility] Address [address] [place] [address] Care Team Providers Care Strap Stitcher Name Role Phone Tamika Ward MD Primary [...] 2024 09/11/2021, 02/04/2021, 01/14/2021 Influenza Vaccine (#1) 2025 , 07/31/2020, 08/29/2019, Additional history exists RSV Adult > 60+ Yrs or (1 - 1-dose 75+ series) 2031 Shingrix-Zoster Vaccine Completed 08/13/2018, 05/10 Hepatitis B Vaccines Aged Out No long er eligible based on patient's age to complete this topic RSV Ped < 20 months Aged Out No longe r eligible based on patient's age to complete this topic Care Teams Strap Stitcher Relationship Specialty Start Date End Date Tamika Ward MD PCP - General Internal Medicine 09/01/22
--- OUTSIDE RECORDS SUMMARY | 2025-05-30 12:28 | XMS_ITS | Clinical Summary ---
Author Organization [facility] [address] [place] [address] [place] [phone] Phone Care Team Providers Care Animation Director Name Role Phone Tamika Zamora MD Primary Care Prov ider Allergies Active Allergy Reactions Criticality Noted Date Comments Other 09/16/2015 perfumes Medications cholecalciferol (VITAMIN D-3) 25 mcg (1,000 unit) tablet Take 1 tablet (1,000 Units total) by mouth 1 (one) time each day. Active celecoxib (CeleBREX) 100 mg capsule Take 1 capsule (100 mg total) by mouth 2 (two) times a day. 180 each 1 09/14/2024 Active acetaminophen (TYLENOL 8 HOUR ORAL) Take by mouth. Active omeprazole (PriLOSEC) [address] capsule TAKE ONE CAPSULE BY MOUTH TWO TIMES A DAY 03/10/2024 Active sertraline (ZOLOFT) 50 mg tablet Take 1 tablet (50 mg total) by mouth 1 (one) time each day. 90 tablet 1 02/02/2025 Active multivit-min/fe rrous fumarate (MULTI VITAMIN ORAL) Take by mouth. Active tiZANidine (ZANAFLEX) 2 mg tabletIndicatio ns:Acute pain of left shoulder Take 1 tablet (2 mg total) by mouth every 6 (six) hours if needed for muscle spasms. 30 tablet 03/23/2025 Active butalbital-acet aminophen-caffe ine (FIORICET, ESGIC) 50-325-40 mg per tabletIndicatio ns:Chronic cough TAKE ONE TABLET BY MOUTH EVERY 6 HOURS IF NEEDED FOR HEADACHES, 32 tablet 1 04/05/2025 Active rOPINIRole (REQUIP) 0.25 mg tablet TAKE TWO TABLETS BY MOUTH EVERY EVENING ONE HOUR BEFORE BEDTIME 180 tablet 04/05/2025 Active traZODone (DESYREL) 100 mg tablet TAKE TWO TABLETS BY MOUTH EVERY EVENING AT BEDTIME 180 tablet 04/05/2025 Active Active Problems Problem Noted Date Diagnosed Date Recurrent UTI 10/10/2024 Esophagitis 07/20/2022 Atrophic vaginitis 05/01/2021 Restless leg syndrome 05/01/2021 Chronic cough 12/07/2019 Chronic rhinitis 12/07/2019 Urinary incontinence 10/25/2019 Insomnia 03/19/2015 Chronic headaches 09/18/2014 Diverticulosis of sigmoid colon 01/24/2009 Overview (10/10/2024): Incidental finding on colonoscopy Hypercholesteremia 11/25/2008 Overview (10/10/2024): ASCVD risk score 3.9% 01/21/2022 Encounters Date Type Department Care Team Description 04/11/2025 1:30 PM EDT Consult Orthopedic Surgery - [address] [place] [address] Marisol Golden PA Trigger middle finger of right hand 03/19/2025 Telephone Adult [address] [phone] Fausto Stevens PA Prior Auth (methocarbamoL (ROBAXIN) 500 mg tablet ) 03/16/2025 3:45 PM EDT - 03/16/2025 11:59 PM EDT Hospital Encounter Xray - [place] [address] [place] [phone] Acute pain of left shoulder Discharge Disposition: Home or Self Care 03/16/2025 3:30 PM EDT Office Visit Adult [address] [phone] Fausto Stevens PA Acute pain of left shoulder (Primary Dx); Trigger middle finger of right hand 03/14/2025 Telephone Adult [address] [phone] Tamika Taylor MD Shoulder Pain from Last 3 Months Immunizations Name Administration Dates Next Due COVID-19 (Moderna/Spikevax) 12yo and older 08/03/2024 COVID-19 (Pfizer/Comirnaty) 12yo and older 08/31/2023 Influenza Quadravalent, 0.5m l (Fluad) 65yo and older 08/31/2023,2022,08/31/2021 Influenza Quadravalent, MDCK , 0.5ml, preservative free (Flucelvax) 6mo and older 08/29/2019 Influenza Quadrivalent, 0.5m l, preservative free (Fluarix; FluLaval; Fluzone) ages 6mo and older (Afluria) 3yo and older 06/23/2020 Influenza Quadrivalent, with preservative (Fluzone; Afluria) 6mo and older 07/31/2020,09/08/2018,08/08/2014 Influenza trivalent, 0.5mL ( Fluad) 65yo and older 07/26/2024,09/08/2022 Influenza trivalent, 0.5mL ( Fluzone High-dose) 65yo and older 09/08/2022 Influenza trivalent, 0.5mL, preservative free (Fluarix; FluLaval; Fluzone) ages 6mo and older (Afluria) 3 years and older 08/12/2021 Influenza trivalent, with pr eservative (Fluzone; Afluria) 6mo and older 08/12/2021,08/08/2015,08/16/2014,08/28,08/08/2013,10/08/2012,08/12/2012 ,07/21/2011,09/17/2010 Influenza, Unspecified 08/09/2016 Moderna SARS-CoV-2 COVID-19, mRNA, LNP-S, preservative free 03/11/2022 Pfizer (age 5-11) Bivalent, COVID-19 08/12/2022 Pfizer (ages 12 & older) Biv alent, COVID-19 08/12/2022 Pfizer SARS-CoV-2 COVID-19, mRNA, LNP-S, preservative free 09/11/2021,02/04/2021,01/14/2021 Pneumococcal conjugate 20 va lent (Prevnar 20, PCV 20) 2mo and older 01/21/2022 Pneumococcal polysaccharide 23 valent (Pneumovax 23) 2yo and older 01/22/2011 RSV, bivalent, protein subun it RSVpreF, 0.5mL, Preservative Free (ABRYSVO) 60yo and older or 32 through 36 wks of 09/19/2023 Td Tetanus diptheria (Tdvax) 7yo and older 04/17/2024,11/08/2002 Tdap Tetanus diptheria acell ular pertussis (Boostrix; Adacel) 7yo and older 11/17/2012 Zoster recombinant (Shingrix ) 19yo and older 08/13/2018,05/10/2018 Surgical History Surgery Date Site/Laterality Comments OTHER SURGICAL HISTORY 02/27/14 PROCEDURE: HISTORY OTHER; COMMENT: laparoscopic lysis of adhesions for small bowel obstruction TOTAL KNEE ARTHROPLASTY 05/10/2017 Right PROCEDURE: MD ARTHRP KNE CONDYLE&PLATU MEDIAL&LAT COMPARTMENTS OTHER SURGICAL HISTORY 05/2015 PROCEDURE: MD SLING OPERATION STRESS INCONTINENCE INCISIONAL HERNIA REPAIR 10/13/2018 PROCEDURE: MD IMPLANT MESH OPN HERNIA RPR/DEBRIDEMENT CLOSURE; COMMENT: Dr. Cabrera COLONOSCOPY 01/24/09 PROCEDURE: HISTORICAL COLONOSCOPY; COMMENT: Up to cecum, regular preparation in the right colon, good preparation in the left colon, sigmoid diverticulosis, otherwise normal colon exam HYSTERECTOMY 1986 PROCEDURE: HISTORICAL HYSTERECTOMY; COMMENT: Total Vaginal Hyst She had a prolapsed uterus after her 3rd child PARTIAL HYSTERECTOMY 1983 PROCEDURE: MD SUPRACERVICAL ABDL HYSTER W/WO RMVL TUBE OVARY; COMMENT: age 28 COLONOSCOPY PROCEDURE: HISTORICAL COLONOSCOPY; COMMENT: Martínez Diverticulosis Coli, Sml Internal Hemorrhoids, Repeat 10 yrs BLADDER SUSPENSION 01/21/2011 PROCEDURE: HISTORICAL BLADDER SUSPENSION; COMMENT: Lap abd sacrocolpopexy and Monarc suburethral sling for cystocele, vaginal vault prolapse and stress urinary incontinence OTHER SURGICAL HISTORY 2012 PROCEDURE: MD ANTERIOR COLPORRAPHY RPR CYSTOCELE W/CYSTO; COMMENT: for [...] drink = 0.6 oz pur e alcohol) Housing Instability Answer Date Recorde d Are you worried that in the next 2 months you may not have stable housing? No 03/15/2025 Food Access & Nutrition Answer Date Rec orded Do you have access to a vari ety of food including fruits and vegetables? Yes 03/15/2025 Access to Healthcare Answer Date Record ed Within the last 3 months, francis medrano many times did you visit the emergency department for your medical care? 1 03/15/2025 Health Literacy Answer Date Recorded How often do you need to hav e someone help you when you read instructions, pamphlets, or other written material from your doctor or pharmacy? Never 03/15/2025 Caregiver: How often do you need to have someone help you when you read instructions, pamphlets, or other written material from your doctor or pharmacy? Not on file 03/15/2025 Financial Risk Answer Date Recorded How hard is it for you to pa y for the very basics like food, housing, medical care, and air conditioning / heating? Not very hard 03/15/2025 Transportation Answer Date Recorded Has the lack of transportati on kept you from meetings, work, or from getting things needed for daily living? No Has the lack of transportati on kept you from medical appointments or from getting medications? No 03/15/2025 Social Isolation Answer Date Recorded How often do you feel lonely or isolated from th ose around you? Never 03/15/2025 Food Risk Answer Date Recorded Within the past 12 months we worried whether our food would run out before we got money to buy more. Never true 03/15/2025 Within the past 12 months th e food we bought just didn't last and we didn't have money to get more. Never true 03/15/2025 Dependent Care Answer Date Recorded Do you need help finding or paying for care for your loved ones. For example, child life specialist or elderly care for an older adult? No 03/15/2025 Education Answer Date Recorded Do you think completing more education or training, like finishing a GED, going to college, or learning a trade, would be helpful for you? N/A 03/15/2025 Employment and Income Answer Date Recor ded During the last four weeks, have you been actively looking for work? No 03/15/2025 Living Situation Answer Date Recorded What is your living situation? 0 03/15/2025 Comments No Sex and Gender Information Value [...] Sign Reading Time Taken Comments Blood Pressure 124/73 03/16/2025 3:22 PM EDT Pulse 78 03/16/2025 3:22 PM EDT Temperature 37.1 C (98.7 F) 03/16/2025 3:22 PM EDT Respiratory Rate 18 02/03/2025 9:35 PM EDT Oxygen Saturation 98% 02/03/2025 9:35 PM EDT Inhaled Oxygen Concentration - - Weight 45.4 kg (100 lb) 04/11/2025 1:20 PM EDT Height 149.9 cm (4' 11 ) 04/11/2025 1:20 PM EDT Body Mass Index 20.2 04/11/2025 1:20 PM EDT Plan of Treatment Health Maintenance Due Date Last Done Comments Osteoporosis Screening (Bone Density Screening) 10/15/2022 COVID-19 Vaccine ( season) 2025 08/03/2024, 08/31/2023, 08/12/2022, Additional history exists Medicare Annual Wellness Visit 06/28/2025 06/28/2024 Influenza Vaccine (#1) 2025 , 08/31/2023, 09/08/2022, Additional history exists Social Influencers of Health Screening 03/15/2026 03/15/2025 Falls Risk Assessment 03/16/2026 03/16/2025, 025 Breast Cancer Screening 10/30/2026 10/30/20 24, 10/22/2023, 11/11/2022, Additional history exists Cholesterol Screening (Lipid Panel) 01/20/2027 01/20/2022 Colorectal Cancer Screening: Colonoscopy 01/08/2030 01/08/2025 DTaP,Tdap,and Td Vaccines (4 - Td or Tdap) 04/17/2034 04/17/2024, 11/17/2012, 11/08/2002 Hepatitis C Screening Completed 01/04/2014 Zoster Vaccines Completed 08/13/2018, 05/10/2018 Colorectal Cancer Screening: Stool Based Tests (FOBT/FIT) Discontinued 09/04/2020, 06/01/2019, 02/01/2018, Additional history exists Pneumococcal Vaccine: 50+ Years Completed 01/21/2022, 01/22/2011 RSV Immunization Adult Patients Completed 09/19/2023 Depression Screening Completed 03/15/2025, 06/28/20 24 HIB Vaccines Aged Out No longer eligi [...] Procedure Name Priority Date/Time Associated Diagnosis Comments MD INJECTION SINGLE TENDON SHEATH OR LIGAMENT APONEUROSIS Routine 04/11/2025 1:30 PM EDT Trigger middle finger of right hand XR SHOULDER 2+ VIEWS LEFT Routine 03/16/2025 4:02 PM EDT Acute pain of left shoulder COLONOSCOPY Routine 01/08/2025 8:04 AM EST Positive colorectal cancer screening using Cologuard test MG MAMMO DIGITAL SCREENING W GUNNAR BILAT Routine 10/30/2024 7:54 AM EST Encounter for screening mammogram for breast cancer DEPRESSION SCREENING Routine 06/28/2024 LIPID PANEL Routine 01/20/2022 HEPATITIS C SCREENING Routine 01/04/2014 from Last 3 Months or Most Recently Relevant to Health Maintenance Results * MD INJECTION SINGLE TENDON SHEATH OR LIGAMENT APONEUROSIS (04/11/2025 1:30 PM EDT) Narrative Marisol Golden PA - 04/11/2025 1:30 PM EDT THO Goldsmith 04/11/2025 1:52 PM Hand / UE Inj/Asp: R long A1 for trigger finger Indications: pain Details: 25 G needle, volar approach Medications: 40 mg triamcinolone acetonide 40 mg/mL; 0.5 mL lidocaine 1 % Informed Consent: Laterality: Right Relevant images/test results available and reviewed: yes Health status cleared: Yes Procedure/treatment, purpose, treatment alternatives, risks/potential complications and benefits explained: yes Risk/complications/benefits details: Risks of infection, thinning of the skin and temporary skin discoloration discussed. Discussed risks of temporary increased pain after injection and swelling and mild redness at injection site for couple days. Explained occasionally cortisone injection can cause facial flushing temporarily. Benefits pain management. For postop injection pain ice, Tylenol and/or NSAIDs if patient can take Patient questions answered: yes Patient agrees, verbalizes understanding, and wants to proceed: yes Consent given by: Patient Informed consent discussion completed by Physician/CARISSA with patient: Verbal Pre-procedure timeout performed: yes us Marisol NETTLES IN CLINIC/BEDSIDE ORDERABLES Final Result * XR Shoulder 2+ Views Left (03/16/2025 4:02 PM EDT) Anatomical Region Laterality Modality Upper Extremities, Shoulder Left Radi ographic Imaging 03/16/2025 4:04 PM EDT Impressions 03/16/2025 4:06 PM EDT 1. Mild degenerative changes at acromioclavicular joint. 2. Findings suggestive of calcific tendinitis. -------- FINAL REPORT -------- Dictated By: Andre Morrison Dictated Date: 03/16/2025 16:04 ET Assigned Physician: Andre Morrison Reviewed and Electronically Signed By: Andre Morrison Signed Date: 03/16/2025 16:06 ET Workstation ID: [id number] Transcribed By: Self Edit Transcribed Date: 03/16/2025 16:04 ET Narrative 03/16/2025 4:06 PM EDT XR SHOULDER 2+ VIEWS LEFT Reason: Shoulder pain, no prior imaging Comparison: None FINDINGS: No fracture. Normal alignment. Mild hypertrophic degenerative changes at the acromioclavicular joint. Small curvilinear calcification adjacent to the greater tuberosity of the humerus. Procedure Note Andre Morrison MD - 03/16/2025 XR SHOULDER 2+ VIEWS LEFT Reason: Shoulder pain, no prior imaging Comparison: None FINDINGS: No fracture. Normal alignment. Mild hypertrophic degenerative changes atthe acromioclavicular joint. Small curvilinear calcification adjacent tothe greater tuberosity of the humerus. IMPRESSION: 1. Mild degenerative changes at acromioclavicular joint. 2. Findings suggestive of calcific tendinitis. -------- FINAL REPORT -------- Dictated By: Andre Morrison Dictated Date: 03/16/2025 16:04 ET Assigned Physician: Andre Morrison Reviewed and Electronically Signed By: Andre Morrison Signed Date: 03/16/2025 16:06 ET Workstation ID: [id number] Transcribed By: Self Edit Transcribed Date: 03/16/2025 16:04 ET Fausto NETTLES IMG XR PROCEDURES Final Resul t * COLONOSCOPY Anesthesia - MAC; [facility] ENDOSCOPY (01/08/2025 8:04 AM EST) Anatomical Region Laterality Modality Endoscopy 01/08/2025 7:34 AM EST Impressions 01/08/2025 8:05 AM EST - Hemorrhoids found on perianal exam. - One 3 mm polyp in the rectum, removed with a jumbo cold forceps. Resected and retrieved. - One 8 mm polyp in the cecum, removed with a cold snare. Resected and retrieved. - The examination was otherwise normal on direct and retroflexion views. Recommendation: - - Discharge patient to home. - High fiber diet. - Continue present medications. - Await pathology results. - Repeat colonoscopy for surveillance based on pathology results. Narrative 01/08/2025 8:05 AM EST [facility] GI Patient Name: Michelle Macdonald Procedure Date: 01/08/2025 7:34 AM Date of : 1955 Age: 69 Gender: Female Note Status: Finalized Attending MD: Carlie Bains DO, [id number] Procedure Date No Time: 01/08/2025 Procedure: Colonoscopy Indications: Positive Cologuard test Providers: Carlie Bains DO Referring MD: Tamika Zamora MD Medicines: Monitored Anesthesia Care Complications: No immediate complications. Estimated blood loss: Minimal. Estimated Blood Loss: Estimated blood loss was minimal. Procedure: Pre-Anesthesia Assessment: - - Prior to the procedure, a History and Physical was performed, and patient medications and allergies were reviewed. The patient is competent. The risks and benefits of the procedure and the sedation options and risks were discussed with the patient. All questions were answered and informed consent was obtained. Patient identification and proposed procedure were verified by the physician, the nurse, the anesthesiologist, the seismograph operator helper and the autocad technician in the pre-procedure area in the endoscopy suite. Mental Status Examination: alert and oriented. Airway Examination: normal oropharyngeal airway and neck mobility. Respiratory Examination: clear to auscultation. CV Examination: normal. Prophylactic Antibiotics: The patient does not require prophylactic antibiotics. Prior Anticoagulants: The patient has taken no anticoagulant or antiplatelet agents. ASA Grade Assessment: II - A patient with severe systemic disease. After reviewing the risks and benefits, the patient was deemed in satisfactory condition to undergo the procedure. The anesthesia plan was to use monitored anesthesia care (MAC). Immediately prior to administration of medications, the patient was re-assessed for adequacy to receive sedatives. The heart rate, respiratory rate, oxygen saturations, blood pressure, adequacy of pulmonary ventilation, and response to care were monitored throughout the procedure. The physical status of the patient was re-assessed after the procedure. After I obtained informed consent, the scope was passed under direct vision. Throughout the procedure, the patient's blood pressure, pulse, and oxygen [...] cold snare. Resection and retrieval were complete. Verification of patient identification for the specimen was done. Estimated blood loss was minimal. The exam was otherwise without abnormality on direct and retroflexion views. Procedure Code(s): --- Professional --- 11991, Colonoscopy, flexible; with removal of tumor(s), polyp(s), or other lesion(s) by snare technique 18642, 59, Colonoscopy, flexible; with biopsy, single or multiple Diagnosis Code(s): --- Professional --- K64.9, Unspecified hemorrhoids D12.8, Benign neoplasm of rectum D12.0, Benign neoplasm of cecum R19.5, Other fecal abnormalities CPT copyright 2020 [employer]. All rights reserved. The codes documented in this report are preliminary and upon cpc coder review may be revised to meet current compliance requirements. CARLIE Bains DO 01/08/2025 8:05:37 AM This report has been signed electronically.Carlie Bains DO Number of Addenda: 0 Note Initiated On: 01/08/2025 7:34 AM Scope In: Scope Out: Endoscopy Department at [facility] - [address] [place] [phone] Procedure Note Carlie Bains DO - 01/08/2025 [facility] GI Patient Name: Michelle Macdonald Procedure Date: 01/08/2025 7:34 AM Date of : 1955 Age: 69 Gender: Female Note Status: Finalized Attending MD: Carlie Bains DO, [id number] Procedure Date No Time: 01/08/2025 Procedure: Colonoscopy [...] the physician, the nurse, the anesthesiologist, the seismograph operator helper and thetechnician in the pre-procedure area in [...] retroflexion views. Procedure Code(s): --- Professional --- 04651, Colonoscopy, flexible; with removal of tumor(s), polyp(s), or other lesion(s) by snare technique 37154, 59, Colonoscopy, flexible; with biopsy,single or multiple Diagnosis Code(s): --- Professional --- K64.9, Unspecified hemorrhoids D12.8, Benign neoplasm of rectum D12.0, Benign neoplasm of cecum R19.5, Other fecal abnormalities CPT copyright 2020 [employer]. All rights reserved. The codes documented in this report are preliminary and upon cpc coder reviewmay be revised to meet current compliance requirements. CARLIE Bains DO 01/08/2025 8:05:37 AM This report has been signed electronically.Carlie Bains DO Number of Addenda: 0 Note Initiated On: 01/08/2025 7:34 AM Scope In: Scope Out: Endoscopy Department at [facility] - [address] [place] [phone] IMPRESSION: - Hemorrhoids found on perianal exam. [...] colonoscopy for surveillance based on pathology results. Carlie Bains DO GI~PROCEDURE ORDERABLES Final Re sult * MG Mammo Digital Screening w Gunnar bilat (10/30/2024 7:54 AM EST) Anatomical Region Laterality Modality Breast Bilateral Mammography 10/31/2024 11:1 0 AM EST Impressions 10/31/2024 11:20 AM EST 1. No mammographic evidence of malignancy 2. Heterogeneous breast parenchyma BI-RADS CATEGORY: 2 - BENIGN RECOMMENDATION: Screening bilateral mammogram is recommended in 1 year. Mammo Location: [facility], [address] [place] [address], [phone], . -------- FINAL REPORT -------- Dictated By: Juan Antonio Choe Dictated Date: 10/31/2024 11:10 ET Assigned Physician: Juan Antonio Choe Reviewed and Electronically Signed By: Juan Antonio Choe Signed Date: 10/31/2024 11:20 ET Workstation ID: [id number] Transcribed By: Self Edit Transcribed Date: 10/31/2024 11:10 ET Narrative 10/31/2024 11:20 AM EST A BILATERAL DIGITAL 3D SCREENING MAMMOGRAPHY HISTORY: Routine screening. No family history of breast cancer. COMPARISON: Multiple priors dating back to 09/30/2020 Technique: Bilateral full field digital mammography (3D) was performed using standard CC and MLO projections CAD was [...] is recommended in 1 year. Mammo Location: [facility], [address] [place] [address], [phone], . -------- FINAL REPORT -------- Dictated By: Juan Antonio Choe Dictated Date: 10/31/2024 11:10 ET Assigned Physician: Juan Antonio Choe Reviewed and Electronically Signed By: Juan Antonio Choe Signed Date: 10/31/2024 11:20 ET Workstation ID: [id number] Transcribed By: Self Edit Transcribed Date: 10/31/2024 11:10 ET us Tamika Zamora MD IMG BI PROCEDURES Final Result * Depression Screening (06/28/2024) Pathologist Pending sale to [facility] Depression Screening abstracted Historical Provider HEALTH MAINTENANCE Final Result * (ABNORMAL) Lipid panel (01/20/2022) [facility] LDL/HDL Ratio 4 0 - 4 Triglycerides 255(A) 0 - 150 mg/dL Cholesterol 264(A) 0 - 200 mg/dL HDL 76 >=40 mg/dL LDL Cholesterol 137(A) 0 - 100 mg/dL Blood Venous blood specimen / Unknown Historical Provider LAB BLOOD ORDERABLES Vanessa l Result * Hepatitis C Screening (01/04/2014) [facility] Hepatitis C Screening abstracted [facility] Provider HEALTH MAINTENANCE Final Result from Last 3 Months or Most Recently Relevant to Health Maintenance Insurance MEDICARE [facility] Care Teams Animation Director Relationship Specialty Start Date End Date Tamika Zamora MD [address] [place] [id number] PCP - General Internal Medicine 02/26/21
== END 2025-05-30 11:30 | disposition home or self-care (01) ==
LOC: HO.HOSX 11:29
PROVIDERS: Visit Provider Physician Assistant
DX: Z13.89 Encounter for screening for other disorder (principal)

== ENCOUNTER 2025-06-05 11:10 | Outpatient (AMB) | payer MEDICARE, SELFPAY ==
[2025-06-05 11:16] VITALS: BMI 19.1
--- NOTE | 2025-06-05 11:16 | A.OFFVIS_ITS ---
Vital Signs 06/05/25 11:16 Height 5 ft Weight 98 lb BMI 19.1 Intake Visit Reasons: OV-LT lateral tibial plateau fx, DOI 02/03/25-w/XR Intake Note: Michelle is a 69 year old female who presents today status post left lateral tibial plateau fracture, DOI 02/03/25. At the patients last visit she was educated on being nonweightbearing for a total of 3 months status post injury. Patient states she is having a lot pain and she is unsure if she is having a flare up of her OA. Patient has tried taking Tylenol with no relief. Allergies No Known Allergies Allergy (Verified 06/05/25 11:18) HPI HPI OV-LT lateral tibial plateau fx, DOI 02/03/25-w/XR: Details: Ms. Abbott is a 69-year-old female who presents to the office today for routine follow-up status post left lateral tibial plateau fracture that occurred on 02/03/2025. She reports the injury occurred when her son's large dog 70-80 lb ran into the side of her causing her to fall directly onto the left knee. Since her last appointment patient has been weight-bearing as tolerated and di scontinued brace use. She reports that she is having pain and points to the medial joint line. [facility], [facility] Surgical History (Updated 08/17/24 @ 11:57 by Courtney Souza [facility]) History of bladder surgery H/O: hysterectomy Hx of right knee surgery (~2017) Social History Alcohol intake: current Alcohol intake frequency: holidays/special occasions only Patient Tobacco Use Status: Never used Tobacco Current occupational status: retired Current occupation: Right hand dominant Review of Systems Const All systems reviewed & are unremarkable except as noted in HPI and below Physical Exam Vital Signs: BMI result Body Mass Index 19.1 Const General: cooperative, healthy appearing and no acute distress Resp Effort & Inspection: normal respiratory effort and able to speak in complete sentences Extrem Other: Left knee normal to inspection. No ecchymosis, erythema or joint effusion. Slight tenderness to palpation medial joint line. No tenderness to palpation on the lateral joint line. Full range of motion. NVI. Assessment & Plan Assessment & Plan (1) Fracture of left tibial plateau: Code(s): S82.142A - Displaced bicondylar fracture of left tibia, initial encounter for closed fracture Category: Medical (2) Osteoarthritis of left knee: Code(s): M17.12 - Unilateral primary osteoarthritis, left knee Category: Medical Plan Ms. Abbott is a 69-year-old female who presents to the office today for routine follow-up status post left lateral tibial plateau fracture that occurred on 02/03/2025. She reports the injury occurred when her son's large dog 70-80 lb ran into the side of her causing her to fall directly onto the left knee. Since her last appointment patient has been weight-bearing as tolerated and discontinued brace use. She reports that she is having pain and points to the medial joint line. While in the office today, x-rays were obtained of the left knee and revealed healed lateral tibial plateau fracture. Patient is currently having what appears to be an arthritic flare-up with the majority of her pain on the medial aspect of the joint. I have recommended topical pain cream in which we will send to [facility] pharmacy. Should insurance not cover this the recommendation would be topical diclofenac that she can obtain [id number]. Additionally, the patient reports that she had a right total knee replacement with Dr. Wright. She is interested in proceeding with a left total knee arthroplasty. She is looking to schedule this in September of this year. I have made an appointment this week with Dr. Wright for further discussion and planning as the patient will only be in town until Wednesday before going to [place]. X-rays of the left knee which were obtained while in the office today and were reviewed by me, Eulalia Castaneda PA-C, revealed healed lateral tibial plateau fracture. Osteoarthritis. Orders: Orders XR knee LT 3V Today M25.569 - Pain in unspecified knee Coding Level of Care Code Est Pt Level 4 (91910) Diagnoses Fracture of left tibial plateau S82.142A Osteoarthritis of left knee M17.12
--- OUTSIDE RECORDS SUMMARY | 2025-06-05 12:26 | XMS_ITS | Clinical Summary ---
Author Organization [facility] Address [address] [place] [address] Care Team Providers Care Manager Cardiac Name Role Phone Tamika Ward MD Primary [...] age to complete this topic Care Teams Manager Cardiac Relationship Specialty Start Date End Date Tamika Ward MD PCP - General Internal Medicine 09/01/22
--- OUTSIDE RECORDS SUMMARY | 2025-06-05 12:26 | XMS_ITS | Data Portability ---
Author Organization [place] [facility],, KATHY MAC MD Address [address] [facility] [address] [place] [address] Care Team Providers Care Recycling Program Manager Name Role Phone ANCHOR-CHLOE HERRERA Primary Care Provider Assessment No assessment recorded. Plan of Treatment Reminders Order Date Submit Date Provider Last Modified By Organization Details Last Modified Time Details Appointments None recorded. Lab urinalysi s, dipstick 2020 021 [email or web address] 1 In-Office Order, Internal Use Only DO Not Attach Compendium DO Not Attach Compendium, Do Not Delete/merge, [id number] 1 13:00:50 culture, urine 2020 021 [employer], [address] [place], [address], 1 10:05:38 pap test, thinprep, cervical 2019 020 tmeczywor [facility], Cytopathology Service, [address] [place], [address], 0 07:38:33 urinalysi s, dipstick 2019 020 [email or web address] In-Office Order, Internal Use Only DO Not Attach Compendium DO Not Attach Compendium, Do Not Delete/merge, [id number] 0 07:38:33 culture, urine 2019 020 [employer], [address] [place], [address], 0 08:19:19 fecal occult blood, stool 2019 020 [email or web address] In-Office Order, Internal Use Only DO Not Attach Compendium DO Not Attach Compendium, Do Not Delete/merge, [id number] 0 07:38:32 urinalysi s, dipstick 2018 019 tmeczywor In-Office Order, Internal Use Only DO Not Attach Compendium DO Not Attach Compendium, Do Not Delete/merge, [id number] 9 11:51:59 culture, urine 2018 019 [facility], [address] [place], [address], 9 12:58:29 Referral None recorded. Procedures None recorded. Surgeries None recorded. Imaging MAMMO, screening , digital, bilateral [address] [facility] ([facility]), [address] [place], [address], 0 09:11:01 Medication Orders estradiol 1 mg tablet 2020 021 INTERFACE [facility], [address] [place] [address], [address], 1 13:54:38 progester one micronize d 200 mg capsule 2020 021 INTERFACE [facility], [address] [place] [address], [address], 1 13:54:38 nitrofura ntoin monohydra te/macroc rystals 100 mg capsule 2020 021 [email or web address] [facility], [address] [place] [address], [address], 1 13:42:05 fluconazo le 150 mg tablet 2020 021 [email or web address] [facility], [address] [place] [address], [address], 1 13:41:55 estradiol 0.01% (0.1 mg/gram) vaginal cream 2019 020 INTERFACE [facility], [address] [place] [address], [address], 0 08:53:45 triamcino lone acetonide 0.1 % topical cream 2019 [email or web address] [facility], [address] [place], [address], 13:42:23 Patient TargetsNo targets recorded. Patient Instructions Encounter Date Encounter Id Patient Instructions Last Modified By Organization Details Last Modified Time 06/15/2019 [id number] urinary tract infection in women information Not [...] 25 minutes Not available 06/15/2019 10:48:41 09/04/2020 [id number] learning about healthy weight Not available 09/04/2020 [...] could be ? Adithya, advised to see general office dispatcher. RX Erika rodas for cutaenous monilia. She [...] questions answered. Not available 09/04/2020 08:54:19 12/20/2020 [id number] Urinary Tract Infection (UTI) in Women: Care Instructions [facility] Not available 12/20/2020 14:25:13 vaginal yeast infection: care instructions [facility] Not available 12/20/2020 14:25:14 This visit is a phone telehealth visit. The patient consented to the visit by phone. The patient was at home at the time of the call and the provider and patient were the only people on the line. I was at [address] [place] [address], at the time of the call. She [...] evaluation. Face to face discussion [email or web address] 12/20/2020 14:27:31 01/17/2021 [id number] This visit is a phone telehealth visit. The patient consented to the visit by phone. The patient was at home at the time of the call and the provider and patient were the only people on the line. I was at [address] [place] [address], at the time of the call. She [...] 30 minutes. Not available 01/17/2021 13:59:32 04/09/2021 [id number] urinary tract infection in women information Not [...] DO Not Attach Compendium, Do Not Delete/merge, [id number] 09/04/2020 08:21:16 06/01/20 19 06/01/2019 fecal occul t blood , stool Occult Blood negati ve Not Available In-Office Order Internal Use Only DO Not Attach Compendium DO Not Attach Compendium, Do Not Delete/merge, [id number] 06/01/2019 09:43:53 06/01/20 19 06/01/2019 cultu re, urine comments [facility] [address] [facility] [place] [address] Medic al Dire idrk flores MD [facility] E: URINE ,MARCOS N CATCH ; Not Available [facility] [address] [facility], [place], [address], 06/03/2019 08:22:04 06/01/20 19 06/02/2019 cultu re, urine urine culture [facility] howard, [facility] [address] [place] [address] Medic al [facility] MD ALEXANDER Hutson CTION TIME: 2018 9:30: 00 AM -04:0 0 URINE CULTU RE KLEBS IELLA PNEUM O. SSP PNEUM O. ( KLEPS P ) F URINE CULTU RE COLON Y COUNT F URINE CULTU RE >100, 000 F Not Available [facility] [address] [place] [address], [address], 06/03/2019 08:22:04 06/01/20 19 06/01/2019 antib iotic sensi tivit y, isola te comments PAREN T ORGAN ISM: KLEBS IELLA PNEUM O. SSP PNEUM O. ( KLEPS P ) [facility] jennifer lawrence, [facility] [place] [address] [place] [address] Medic al [facility] dirk flores MD SOUR E: URINE ,MARCOS N CATCH ; Not Available [facility] [address] [place] [address], [address], 06/03/2019 08:22:12 06/01/20 19 06/02/2019 antib iotic sensi tivit y, isola te gram negative susceptibili ty [facility] jennifer lawrence, [facility] [place] [address] Medic al [facility] MD ALEXANDER Hutson CTION TIME: [...] S F Not Available [facility] [address] [place], [address], 06/03/2019 08:22:12 06/01/20 19 06/01/2019 pap, LB [id number] ThinP rep Pap, Image d: NEGAT HOLLY [...] CERVI X, LPS = NEG Not Available [facility], Cytopathology Service [address] [place], [address], 06/06/2019 14:53:45 06/01/2006/01/2019 urina lysis , dipst [...] DO Not Attach Compendium, Do Not Delete/merge, [id number] 06/01/2019 09:31:27 06/01/2006/01/2019 urina lysis , dipst ick SG 1.015 Not Available In-Office Order Internal Use Only DO Not Attach Compendium DO Not Attach Compendium, Do Not Delete/merge, [facility] 06/01/2019 09:31:27 06/01/2006/01/2019 urina lysis , dipst ick BLO Negati ve Not Available In-Office Order Internal Use Only DO Not Attach Compendium DO Not Attach Compendium, Do Not Delete/merge, [facility] 06/01/2019 09:31:27 06/01/2006/01/2019 urina lysis , dipst ick pH 7.0 Not Available In-Office Order Internal Use Only DO Not Attach Compendium DO Not Attach Compendium, Do Not Delete/merge, [id number] 06/01/2019 09:31:27 06/01/2006/01/2019 urina lysis , dipst ick PRO Negati ve Not Available In-Office Order Internal Use Only DO Not Attach Compendium DO Not Attach Compendium, Do Not Delete/merge, [id number] 06/01/2019 09:31:27 06/01/2006/01/2019 urina lysis , dipst ick URO 0.2 E.U. / dl Not Available In-Office Order Internal Use Only DO Not Attach Compendium DO Not Attach Compendium, Do Not Delete/merge, [id number] 06/01/2019 09:31:27 06/01/20 19 06/01/2019 urina lysis , dipst ick NIT negati ve Not Available In-Office Order Internal Use Only DO Not Attach Compendium DO Not Attach Compendium, Do Not Delete/merge, 06/01/2019 09:31:27 06/01/20 19 06/01/2019 urina lysis , dipst ick HARINI Small Not Available In-Office Order Internal Use Only DO Not Attach Compendium DO Not Attach Compendium, Do Not Delete/merge, [facility] 06/01/2019 09:31:27 06/15/2006/15/2019 cultu re, urine comments [facility] [address] [place] [address] Medic al [facility] dirk flores MD SOURC E: URINE ,MARCOS N CATCH ; Not Available [facility] [address] [place] [address], [address], 06/16/2019 12:58:29 06/15/20 19 06/16/2019 cultu re, urine urine culture [facility], [facility] [address] [facility] [place] [address] Medic al [facility] dirk flores MD COLLE CTION TIME: 019 8:30: 00 AM -04:0 0 URINE CULTU RE <10,0 00 CFU/m L F URINE CULTU RE GRAM POSIT HOLLY COCCI and GRAM NEGAT HOLLY BACIL LI F Not Available [facility] [address] [place] [address], [address], 06/16/2019 12:58:29 06/15/20 19 06/15/2019 urina lysis , dipst ick GLU Negati ve Not Available In-Office Order Internal Use Only DO Not Attach Compendium DO Not Attach Compendium, Do Not Delete/merge, [id number] 06/15/2019 08:43:46 06/15/20 19 06/15/2019 urina lysis , dipst ick TERRENCE Negati ve Not Available In-Office Order Internal Use Only DO Not Attach Compendium DO Not Attach Compendium, Do Not Delete/merge, [id number] 06/15/2019 08:43:46 06/15/2006/15/2019 urina lysis , dipst ick KET Negati ve Not Available In-Office Order Internal Use Only DO Not Attach Compendium DO Not Attach Compendium, Do Not Delete/merge, [id number] 06/15/2019 08:43:46 06/15/2006/15/2019 urina lysis , dipst ick SG 1.015 Not Available In-Office Order Internal Use Only DO Not Attach Compendium DO Not Attach Compendium, Do Not Delete/merge, [facility] 06/15/2019 08:43:46 06/15/2006/15/2019 urina lysis , dipst ick BLO Negati ve Not Available In-Office Order Internal Use Only DO Not Attach Compendium DO Not Attach Compendium, Do Not Delete/merge, [facility] 06/15/2019 08:43:46 06/15/20 19 06/15/2019 urina lysis , dipst ick pH 5.0 Not Available In-Office Order Internal Use Only DO Not Attach Compendium DO Not Attach Compendium, Do Not Delete/merge, [facility] 06/15/2019 08:43:46 06/15/20 19 06/15/2019 urina lysis , dipst ick PRO Negati ve Not Available In-Office Order Internal Use Only DO Not Attach Compendium DO Not Attach Compendium, Do Not Delete/merge, [facility] 06/15/2019 08:43:46 06/15/20 19 06/15/2019 urina lysis , dipst ick URO 0.2 E.U. / dl Not Available In-Office Order Internal Use Only DO Not Attach Compendium DO Not Attach Compendium, Do Not Delete/merge, [facility] 06/15/2019 08:43:46 06/15/2006/15/2019 urina lysis , dipst ick NIT negati ve Not Available In-Office Order Internal Use Only DO Not Attach Compendium DO Not Attach Compendium, Do Not Delete/merge, [facility] 06/15/2019 08:43:46 06/15/20 19 06/15/2019 urina lysis , dipst ick HARINI Negati ve Not Available In-Office Order Internal Use Only DO Not Attach Compendium DO Not Attach Compendium, Do Not Delete/merge, [facility] 06/15/2019 08:43:46 09/04/20 20 09/04/2020 cultu re, urine comments [facility] [address] [facility] [place] [address] Medic al Dire dirk flores MD SOUR E: URINE ,MARCOS N CATCH ; Not Available [facility] [address] [facility], [place], [address], 09/05/2020 08:19:19 09/04/20 20 09/05/2020 cultu re, urine urine culture [facility], [facility] of [facility] [address] [facility] [place] [address] Medic al Direc MD ALEXANDER Hutson CTION TIME: 09/04 8:30: 00 AM -04:0 0 URINE CULTU RE No growt h F Not Available [facility] [address] [place], [address], 09/05/2020 08:19:19 09/04/20 20 09/04/2020 pap, LB [id number] ThinP rep Pap, Image d: NEGAT HOLLY [...] neg, z12.4 , z01.4 19 Not Available [facility], Cytopathology Service [address] [place], [address], 09/06/2020 12:26:07 09/04/20 20 09/04/2020 urina lysis , dipst ick GLU Negati ve Not Available In-Office Order Internal Use Only DO Not Attach Compendium DO Not Attach Compendium, Do Not Delete/merge, [id number] 09/04/2020 08:28:19 09/04/20 20 09/04/2020 urina lysis , dipst ick TERRENCE Negati ve Not Available In-Office Order Internal Use Only DO Not Attach Compendium DO Not Attach Compendium, Do Not Delete/merge, [id number] 09/04/2020 08:28:19 09/04/20 20 09/04/2020 urina lysis , dipst ick KET Negati ve Not Available In-Office Order Internal Use Only DO Not Attach Compendium DO Not Attach Compendium, Do Not Delete/merge, [id number] 09/04/2020 08:28:19 09/04/20 20 09/04/2020 urina lysis , dipst ick SG 1.010 Not Available In-Office Order Internal Use Only DO Not Attach Compendium DO Not Attach Compendium, Do Not Delete/merge, [id number] 09/04/2020 08:28:19 09/04/20 20 09/04/2020 urina lysis , dipst ick BLO Negati ve Not Available In-Office Order Internal Use Only DO Not Attach Compendium DO Not Attach Compendium, Do Not Delete/merge, [id number] 09/04/2020 08:28:19 09/04/20 20 09/04/2020 urina lysis , dipst ick pH 6.0 Not Available In-Office Order Internal Use Only DO Not Attach Compendium DO Not Attach Compendium, Do Not Delete/merge, [id number] 09/04/2020 08:28:19 09/04/20 20 09/04/2020 urina lysis [...] DO Not Attach Compendium, Do Not Delete/merge, [id number] 09/04/2020 08:28:19 09/04/20 20 09/04/2020 urina lysis , dipst ick NIT negati ve Not Available In-Office Order Internal Use Only DO Not Attach Compendium DO Not Attach Compendium, Do Not Delete/merge, 09/04/2020 08:28:19 09/04/20 20 09/04/2020 urina lysis , dipst ick HARINI Negati ve Not Available In-Office Order Internal Use Only DO Not Attach Compendium DO Not Attach Compendium, Do Not Delete/merge, [id number] 09/04/2020 08:28:19 04/09/20 21 04/09/2021 cultu re, urine comments [facility], [facility] Of [address] [place] [address] Medic al [facility] dirk flores MD SOURC E: URINE ,MARCOS N CATCH ; Not Available [facility] [address] [place] [address], [address], 04/10/2021 10:05:38 04/09/20 21 04/10/2021 cultu re, urine urine culture [facility], [facility] [address] [facility] [place] [address] Medic al [facility] dirk flores MD COLLE CTION TIME: 021 10:00 :00 AM -04:0 0 URINE CULTU RE No growt h F Not Available [facility] [address] [place] [address], [address], 04/10/2021 10:05:38 04/09/20 21 04/09/2021 urina lysis , dipst ick GLU Negati ve Not Available In-Office Order Internal Use Only DO Not Attach Compendium DO Not Attach Compendium, Do Not Delete/merge, [id number] 04/09/2021 10:06:35 04/09/20 21 04/09/2021 urina lysis , dipst ick TERRENCE Negati ve Not Available In-Office Order Internal Use Only DO Not Attach Compendium DO Not Attach Compendium, Do Not Delete/merge, [id number] 04/09/2021 10:06:35 04/09/20 21 04/09/2021 urina lysis , dipst ick KET Negati ve Not Available In-Office Order Internal Use Only DO Not Attach Compendium DO Not Attach Compendium, Do Not Delete/merge, 04/09/2021 10:06:35 04/09/20 21 04/09/2021 urina lysis , dipst ick SG 1.015 Not Available In-Office Order Internal Use Only DO Not Attach Compendium DO Not Attach Compendium, Do Not Delete/merge, [id number] 04/09/2021 10:06:35 04/09/2004/09/2021 urina lysis , dipst ick BLO Negati ve Not Available In-Office Order Internal Use Only DO Not Attach Compendium DO Not Attach Compendium, Do Not Delete/merge, [id number] 04/09/2021 10:06:35 04/09/20 21 04/09/2021 urina lysis , dipst ick pH 6.5 Not Available In-Office Order Internal Use Only DO Not Attach Compendium DO Not Attach Compendium, Do Not Delete/merge, [facility] 04/09/2021 10:06:35 04/09/20 21 04/09/2021 urina lysis , dipst ick PRO Negati ve Not Available In-Office Order Internal Use Only DO Not Attach Compendium DO Not Attach Compendium, Do Not Delete/merge, [id number] 04/09/2021 10:06:35 04/09/20 21 04/09/2021 urina lysis , dipst ick URO 0.2 E.U. / dl Not Available In-Office Order Internal Use Only DO Not Attach Compendium DO Not Attach Compendium, Do Not Delete/merge, [id number] 04/09/2021 10:06:35 04/09/20 21 04/09/2021 urina lysis , dipst ick NIT negati ve Not Available In-Office Order Internal Use Only DO Not Attach Compendium DO Not Attach Compendium, Do Not Delete/merge, [id number] 04/09/2021 10:06:35 04/09/20 21 04/09/2021 urina lysis , dipst ick HARINI Negati ve Not Available In-Office Order Internal Use Only DO Not Attach Compendium DO Not Attach Compendium, Do Not Delete/merge, [id number] 04/09/2021 10:06:35 10/01/20 20 09/30/2020 MAMMO , scree galindo, digit al, bilat eral No observ ation record ed. Not Available 09/09 10:02:49 Result Notes None recorded. Problems Name Problem SNOMED Code Status Onset Date Resolution Date Notes Provider Name and Address Organization Details Recorded Time Lichen sclerosus et atrophicus Active Kathy Mac MD [address] [facility], [place], [address], [place] [facility], 6 10:38:18 Candidal vulvovagin itis 86609514 Active Kathy Mac MD [address], [place], [address], [place] [facility], 6 11:16:16 Dysuria 21339700 Active Kathy Mac MD [address], [place], [address], [place] [facility], 6 10:38:18 Acute lower urinary tract infection 199146607 Active 01/2018: She was having recurrent UTI in 2016, began using the Estrace vaginal cream regularly and the UTIs resolved, she stopped the cream 4 months ago and is now having recurrent UTI again. 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 Kathy Mac MD [address], [place], [address], [place] [facility], 6 10:38:18 Menopausal syndrome 933576802 Active Kathy Mac MD [address], [place], [address], [place] [facility], 6 10:38:18 Vaginal wall prolapse 642167785 Active Kathy Mac MD [address], [place], [address], [place] [facility], 6 10:38:18 Arthritis 8950542 Active 2016 right knee Malini root [place] - [facility], 7 08:52:23 Recurrent urinary tract infection 489501572 Active 2017 Kathy Mac MD [address], [place], [address], [place] [facility], 8 08:34:11 Candidiasi s of skin 27399157 Active 2018 Kahty Mac MD [address], [place], [address], [place] [facility], 9 10:10:38 Problem Notes None recorded. Procedures Surgical History Date Name Laterality Status Provider Name and Address Organization Details Recorded Time 04/01/20 21 procedure on knee completed Tequila Mosley [place] - [facility], 04/09/2021 10:05:05 10/13/20 18 Hernia repair w/mesh completed Malini Irvin [place] - [facility], 05/09/2019 13:40:35 05/10/20 17 Other completed Tequila Mosley [place] - [facility], 01/14/2018 10:13:37 05/08/20 15 Other completed Tequila Mosley [place] - [facility], 12/18/2015 08:52:00 02/28/20 14 Other completed Malini Irvin [place] - [facility], 04/10/2014 08:10:20 08/08/20 12 Hernia repair w/mesh completed Kathy Mac MD [address], [place], [address], [place] [facility], 01/03/2013 10:21:46 02/07/20 11 Other completed Kathy Mac MD [address], [place], [address], [place] [facility], 01/03/2013 10:21:26 11/08/18 87 Hysterectomy completed Kathy Mac MD [address], [place], [address], [place] [facility], 01/03/2013 09:34:42 Imaging Results None recorded. Procedure [...] DateTime 01/17/2021 149.86 cm Yolis Fregoso in [facility], 01/17/2021 13:41:09 Date Recorded Body height Body mass index (BMI) Body weight Body temperature Heart rate Systolic And Diastolic Provider Name and Address Organization Details Last Updated DateTime 1 149.86 cm 22.9 kg/m2 70617.6 6 g 97 [degF] 85 /min 110/69 mm[Hg] Tequila Albert in [facility], 1 10:03:36 Date Recorded Body height Heart rate Body mass index (BMI) Body weight Systolic And Diastolic Provider Name and Address Organization Details Last Updated DateTime 06/15/2019 151.77 cm 81 /min 23.6 kg/m2 37530.08 g 108/67 mm[Hg] Malini Albert in [facility], 06/15/2019 08:42:16 Date Recorded Body weight Body mass index (BMI) Body height Body temperature Heart rate Systolic And Diastolic Provider Name and Address Organization Details Last Updated DateTime 0 79015.4 3 g 23.5 kg/m2 149.86 cm 97.5 [degF] 84 /min 119/80 mm[Hg] Tequila Sumnermadiha [place] - [facility], 0 08:21:45 Social History Question Answer Notes LastModified by Organizat ion Details LastModified Time Tobacco Smoking Status Former Smoker quit 30 yrs ago Not Available [facility] 09/10/2020 03:19:42 What Is Your Level Of Caffeine Consumption? None [id number] Information not available 09/10/2020 What Type Of Diet Are You Following? REGULAR [id number] Information not available 09/10/2020 Which Illicit Or Recreational Drugs Have You Used? No [id number] Information not available 09/10/2020 Do You Reside In Or Have You Traveled To An Area Where Ebola Virus Transmission Is Active? No [id number] Information not available 09/10/2020 Education 12 Information [...] How Much Tobacco Do You Smoke? No [id number] Information not available 09/10/2020 General Stress Level Medium Information not available 10/25/2014 How Many Years Have You Smoked Tobacco? 12 [id number] Information not available 09/10/2020 Have You Recently (within The Last 12 Weeks, Or During A Current ) Traveled To Or Lived In A Zika-affected Area? No [email or web address] Information not available 01/01/2017 Sex: Female Functional Status Question Answer Note LastModified by Organizat ion Details LastModified Time What is your level of alcohol consumption? Occasional [id number] Information not available 09/10/2020 Do you or have you ever used smokeless tobacco? Never used smokeless tobacco Information not available 04/09/2021 What is your occupation? retire Information not available 09/04/2020 Do you or have you ever used e-cigarettes or vape? Never used electronic cigarettes Information not available 04/09/2021 What is your exercise level? Moderate [id number] Information not available 09/10/2020 Mental Status None [...] Problems Y Defects or Inherited Disease N History of Ovarian Cancer N Anemia N History of Breast Cancer N [...] Influenza, split virus, trivalent, preservative 2 completed Katyh Mac MD [address] [facility],[address], [place], [address], [facility] [place] [facility], 01/03/2013 09:34:42 Tdap 3 completed [place] [place] in [facility], 01/03/2013 09:07:00 Influenza, split virus, trivalent, preservative 3 completed [facility] [place] in [facility], 04/10/2014 08:09:01 Influenza, split virus, quadrivalent, preservative 4 completed Malini Caldwellesther root [facility] [place] in [facility], 09/27/2014 09:22:18 Influenza, split virus, trivalent, preservative 5 completed Tequila Sumnermarshauvaldomarcy root [facility] in [facility], 12/18/2015 08:52:00 influenza, unspecified formulation 6 completed Malini Caldwellesther root [facility] [place] in [facility], 01/01/2017 08:48:33 Influenza, split virus, quadrivalent, preservative 8 completed Malini Caldwellesther root [facility] [place] [place] in [facility], 05/09/2019 13:39:08 Influenza, split virus, quadrivalent, preservative 0 completed Tequilaangel Sumnermarshauvaldomarcy root [facility] Thao Roosevelt in [facility], 09/04/2020 08:26:56 Past Encounters Encounter ID Performer Location Encounter Start Date Encounter Closed Date Diagnosis/Indication Diagnosis SNOMED-CT Code Diagnosis ICD10 Code Diagnosis Note [id number] MD KATHY Garsia MD [facility] [employer] [place] [place] [address] 01/03/2013 08:41:17 01/03/2013 15:41:19 [id number] MD KATHY Garsia MD [address] [place] [address],[address] [place] [address] 04/10/2014 07:54:52 04/10/2014 09:52:01 Specialized medical examination 61175602 Screening mammography 14217368 Lichen scl erosus et atrophicus [id number] MD KATHY Garsia MD [address] [place] [address],[address] [place] [address] 09/27/2014 09:07:30 09/27/2014 11:01:44 Candidal vulvovaginitis 69020228 Dysuria 02060226 Atrophic vulvovaginitis 52978403 [id number] MD KATHY Garsia MD [address] [place] [address],[address] [place] [address] 10/25/2014 08:38:48 10/25/2014 13:02:34 Lichen sclerosus et atrophicus 24489703 Atrophic vulvovaginitis 01344410 Vaginal wall prolapse 196837690 Dysuria 02284247 [id number] MD KATHY Garsia MD [address] [place] [address], [place] [address] 12/18/2015 08:42:49 12/18/2015 10:27:02 Specialized medical examination 90272909 Z01.419 Screening for malignant neoplasm of rectum 973744382 Z12.12 Screening mammography 24 464571 Z12.31 [id number] MD KATHY Garsia MD [address] [place] [address], [place] [address] 03/17/2016 08:05:52 03/17/2016 13:08:02 Acute lower urinary tract infection 926294532 R30.0 Lichen scl erosus et atrophicus 74514858 L90.0 [id number] MD KATHY Garsia MD [address] [place] [address], [place] [address] 03/25/2016 08:09:08 03/25/2016 11:27:44 Acute lower urinary tract infection 913888452 R30.0 [id number] MD KATHY Garsia MD [address] [place] [address], [place] [address] 06/09/2016 13:19:33 06/09/2016 15:02:07 Acute lower urinary tract infection 668123035 R30.0 [id number] MD KATHY Garsia MD [address] [place] [address], [place] [address] 01/01/2017 08:20:33 01/01/2017 11:37:45 Screening mammography 99492041 Z12.31 Specialize d medical examination 61441856 Z01.419 Screening for malignant neoplasm of rectum 733232217 Z12.12 Acute lowe r urinary tract infection 850477863 R30.0 Atrophic vulvovaginitis 49639112 N95.2 [id number] MD KATHY Garsia MD [address] [place] [address], [place] [address] 01/18/2017 07:56:21 01/18/2017 12:14:44 Acute lower urinary tract infection 903996197 R30.0 Menopausal syndrome 1237 86745 N95.9 [id number] MD KATHY Garsia MD [address] [place] [address],[facility] [place] [address] 02/02/2017 13:10:08 02/02/2017 14:35:00 Acute lower urinary tract infection 518924955 R30.0 Candidal vulvovaginitis 32473819 B37.3 [id number] MD KATHY Garsia MD [address] [place] [address],[facility] [place] [address] 01/14/2018 09:48:09 01/14/2018 12:05:08 Screening mammography 30681933 Z12.31 Acute lowe r urinary tract infection 448375698 R30.0 [id number] MD KATHY Garsia MD [address] [place] [address],[facility] [place] [address] 02/01/2018 10:34:17 02/01/2018 14:39:06 Specialized medical examination 87276517 Z01.419 Screening for malignant neoplasm of rectum 354554583 Z12.12 Screening mammography 24 038766 Z12.31 Acute lowe r urinary tract infection 524366201 R30.0 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 70575064 L90.0 [id number] MD KATHY Garsia MD [address] [place] [address],[facility] [place] [address] 03/25/2018 08:27:29 03/25/2018 09:43:03 Recurrent urinary tract infection 433311342 N39.0 [id number] MD KATHY Garsia MD [address] [place] [address], [place] [address] 05/09/2019 13:20:47 05/09/2019 16:00:16 Screening mammography 19378482 Z12.31 Acute lowe r urinary tract infection 240703715 R30.0 Lichen scl erosus et atrophicus 56666377 L90.0 Atrophic vulvovaginitis 50843568 N95.2 Candidal vulvovaginitis 31645762 B37.3 [id number] MD KATHY Garsia MD [address] [place] [address], [place] [address] 06/01/2019 09:24:51 06/01/2019 12:01:30 Acute lower urinary tract infection 367257445 R30.0 Specialize d medical examination 57009784 Z01.419 Screening for malignant neoplasm of rectum 098558913 Z12.12 Screening mammography 24 984319 Z12.31 Candidiasis of skin 4988 3006 B37.2 [id number] MD KATHY Garsia MD [address] [place] [address], [address] [place] [address] 06/02/2019 13:09:32 06/02/2019 15:47:06 Urinary tract infectious disease 99659109 N30.00 Candidal vulvovaginitis 40642790 B37.3 [id number] MD KATHY Garsia MD [address] [place] [address] 06/15/2019 08:30:24 06/15/2019 11:52:18 Acute lower urinary tract infection 511866537 R30.0 [id number] MD KATHY Garsia MD [address] [place], [place] [address] [address] [place] [address] 09/04/2020 08:18:37 09/04/2020 10:21:39 Specialized medical examination 73761020 Z01.419 Screening for malignant neoplasm of rectum 237891699 Z12.12 Screening mammography 24 800150 Z12.31 Atrophic vulvovaginitis 30976531 N95.2 Acute lowe r urinary tract infection 449281212 R30.0 Lichen scl erosus et atrophicus 52373826 L90.0 [id number] MD KATHY Garsia MD [address] [place] [address], [address] [place] [address] 12/20/2020 14:15:25 12/20/2020 15:50:42 Candidal vulvovaginitis 23031868 B37.3 Urinary tr act infectious disease 02692447 N30.00 [id number] MD KATHY Garsia MD [address] [facility],[address] [place] [address] 01/17/2021 13:33:34 01/17/2021 15:25:30 Menopausal syndrome 349067981 N95.1 [id number] MD KATHY Garsia MD [address] [facility],[address] [place] [address] 04/09/2021 09:52:20 04/10/2021 08:58:45 Acute lower urinary tract infection 101595575 R30.0 Lichen scl erosus et atrophicus 49382322 L90.0 Health Concerns Section Related Observation LastModified by Organization Detai ls LastModified Time None Recorded Concern Status LastModified by Organization Details LastModified Time None Recorded Advance Directives Directive None Recorded Payers Insurance Date Sequence Insurance Name Policy Number Policy Hall Covered Member ID Hall Member ID Guarantor Name 06/23/2014 2 [facility] [id number] 01 Charlie Abbott [id number] Michelle Abbott 03/25/2018 1 [facility] [id number] Michelle Abbott [id number] Michelle Abbott 04/09/2021 1 [facility] [id number] Charlie Abbott [id number] Michelle Abbott 04/09/2021 1 [facility] [id number] Michelle Abbott [id number] Michelle Abbott OBGyn Episode No OBEpisode recorded.
--- OUTSIDE RECORDS SUMMARY | 2025-06-05 12:26 | XMS_ITS | Clinical Summary ---
Author Organization [facility] [address] [place] [address] Address [address] [place] [address] Phone Care Team Providers Care Tank Stave Assembler Name Role Phone Tamika Zamora MD Primary Care Prov ider Allergies Active Allergy Reactions Criticality Noted Date Comments Other 09/16/2015 perfumes Medications cholecalcifero l (VITAMIN D-3) 25 mcg (1,000 unit) tablet Take 1 tablet (1,000 Units total) by mouth 1 (one) time each day. Active celecoxib (CeleBREX) 100 mg capsule Take 1 capsule (100 mg total) by mouth 2 (two) times a day. 180 each 1 4 Active acetaminophen (TYLENOL 8 HOUR ORAL) Take by mouth. Active sertraline (ZOLOFT) 50 mg tablet Take 1 tablet (50 mg total) by mouth 1 (one) time each day. 90 tablet 1 5 Active multivit-min/f errous fumarate (MULTI VITAMIN ORAL) Take by mouth. Active tiZANidine (ZANAFLEX) 2 mg tabletIndicati ons:Acute pain of left shoulder Take 1 tablet (2 mg total) by mouth every 6 (six) hours if needed for muscle spasms. 30 tablet 5 Active butalbital-lopez taminophen-caf feine (FIORICET, ESGIC) 50-325-40 mg per tabletIndicati ons:Chronic cough TAKE ONE TABLET BY MOUTH EVERY 6 HOURS IF NEEDED FOR HEADACHES, 32 tablet 1 5 Active rOPINIRole (REQUIP) 0.25 mg tablet TAKE TWO TABLETS BY MOUTH EVERY EVENING ONE HOUR BEFORE BEDTIME 180 tablet 5 Active traZODone (DESYREL) 100 mg tablet TAKE TWO TABLETS BY MOUTH EVERY EVENING AT BEDTIME 180 tablet 5 Active omeprazole (PriLOSEC) [address] capsule TAKE ONE CAPSULE BY MOUTH TWICE A DAY 60 capsule 5 5 Active omeprazole (PriLOSEC) [address] capsule TAKE ONE CAPSULE BY MOUTH TWO TIMES A DAY 4 06/05/20 25 Discontinued Active Problems Problem Noted Date Diagnosed Date [...] 1:30 PM EDT Consult Orthopedic Surgery - [address] [place] [address] Marisol Golden PA Trigger middle finger of right hand 03/19/2025 Telephone Adult [address] [address] Fausto Stevens PA Prior Auth (methocarbamoL (ROBAXIN) 500 mg tablet ) 03/16/2025 3:45 PM EDT - 03/16/2025 11:59 PM EDT Hospital Encounter Xray - [place] [address] [place] [address] Acute pain of left shoulder Discharge Disposition: Home or Self Care 03/16/2025 3:30 PM EDT [facility] [address] [place] [address] Rodney, Fausto D, PA Acute pain of left shoulder (Primary Dx); Trigger middle finger of right hand 03/14/2025 Telephone Adult Medicine - [place] [place] [address] [place] [address] Tamika Taylor MD Shoulder Pain from Last [...] obstruction TOTAL KNEE ARTHROPLASTY 05/10/2017 Right PROCEDURE: HI ARTHRP KNE CONDYLE&PLATU MEDIAL&LAT COMPARTMENTS OTHER SURGICAL HISTORY 05/2015 PROCEDURE: HI SLING OPERATION STRESS INCONTINENCE INCISIONAL HERNIA REPAIR 10/13/2018 PROCEDURE: HI IMPLANT MESH OPN HERNIA RPR/DEBRIDEMENT CLOSURE; COMMENT: Dr. Cabrera COLONOSCOPY 01/24/09 PROCEDURE: HISTORICAL COLONOSCOPY; COMMENT: Up to cecum, regular preparation in the right colon, good preparation in the left colon, sigmoid diverticulosis, otherwise normal colon exam HYSTERECTOMY 1986 PROCEDURE: HISTORICAL HYSTERECTOMY; COMMENT: Total Vaginal Hyst She had a prolapsed uterus after her 3rd child PARTIAL HYSTERECTOMY 1983 PROCEDURE: HI SUPRACERVICAL ABDL HYSTER W/WO RMVL TUBE OVARY; COMMENT: age 28 COLONOSCOPY PROCEDURE: HISTORICAL COLONOSCOPY; COMMENT: Martínez Diverticulosis Coli, Sml Internal Hemorrhoids, Repeat 10 yrs BLADDER SUSPENSION 01/21/2011 PROCEDURE: HISTORICAL BLADDER SUSPENSION; COMMENT: Lap abd sacrocolpopexy and Monarc suburethral sling for cystocele, vaginal vault prolapse and stress urinary incontinence OTHER SURGICAL HISTORY 2012 PROCEDURE: HI ANTERIOR COLPORRAPHY RPR CYSTOCELE W/CYSTO; COMMENT: for [...] Record ed Within the last 3 months, ho w many times did you visit the emergency [...] care for your loved ones. 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 [...] 03/16/2026 03/16/2025, 025 Breast Cancer Screening 10/30/2026 10/30/20, 10/22/2023, 11/11/2022, [...] Completed 09/19/2023 Depression Screening Completed 03/15/2025, 06/28/20 HIB Vaccines Aged Out No longer eligi [...] Procedure Name Priority Date/Time Associated Diagnosis Comments HI INJECTION SINGLE TENDON SHEATH OR LIGAMENT APONEUROSIS [...] Recently Relevant to Health Maintenance Results * HI INJECTION SINGLE TENDON SHEATH OR LIGAMENT APONEUROSIS (04/11/2025 1:30 PM EDT) Marisol Acosta PA - 04/11/2025 1:30 PM EDT THO [...] Signed Date: 03/16/2025 16:06 ET Workstation ID: [id number] Transcribed By: Self Edit Transcribed Date: 03/16/2025 [...] Signed Date: 03/16/2025 16:06 ET Workstation ID: [id number] Transcribed By: Self Edit Transcribed Date: 03/16/2025 16:04 ET Fausto NETTLES IMG XR PROCEDURES Final Resul t * COLONOSCOPY Anesthesia - MAC; [facility] ENDOSCOPY (01/08/2025 8:04 AM EST) Anatomical Region [...] pathology results. Narrative 01/08/2025 8:05 AM EST [facility] GI Patient Name: Michelle Macdonald Procedure Date: 01/08/2025 7:34 AM Date of : 1955 Age: 69 Gender: Female Note Status: Finalized Attending MD: Carlie Bains DO, [id number] Procedure Date No Time: 01/08/2025 Procedure: Colonoscopy [...] the physician, the nurse, the anesthesiologist, the centerless grinder tender and the heavy truck technician in the pre-procedure area in the [...] retroflexion views. Procedure Code(s): --- Professional --- 50960, Colonoscopy, flexible; with removal of tumor(s), polyp(s), or other lesion(s) by snare technique 76990, 59, Colonoscopy, flexible; with biopsy, single or multiple Diagnosis Code(s): --- Professional --- K64.9, Unspecified hemorrhoids D12.8, Benign neoplasm of rectum D12.0, Benign neoplasm of cecum R19.5, Other fecal abnormalities CPT copyright 2020 [employer]. All rights reserved. The codes documented in this report are preliminary and upon milieu manager review may be revised to meet current compliance requirements. CARLIE Bains DO 01/08/2025 8:05:37 AM This report has been signed electronically.Carlie Bains DO Number of Addenda: 0 Note Initiated On: 01/08/2025 7:34 AM Scope In: Scope Out: Endoscopy Department at [facility] - [address] [place] [phone] Procedure Note Carlie Bains DO - 01/08/2025 [facility] GI Patient Name: Michelle Macdonald Procedure Date: 01/08/2025 7:34 AM Date of : 1955 Age: 69 Gender: Female Note Status: Finalized Attending MD: Carlie Bains DO, [id number] Procedure Date No Time: 01/08/2025 Procedure: Colonoscopy [...] the physician, the nurse, the anesthesiologist, the centerless grinder tender and thetechnician in the pre-procedure area in [...] retroflexion views. Procedure Code(s): --- Professional --- 62380, Colonoscopy, flexible; with removal of tumor(s), polyp(s), or other lesion(s) by snare technique 10753, 59, Colonoscopy, flexible; with biopsy,single or multiple Diagnosis Code(s): --- Professional --- K64.9, Unspecified hemorrhoids D12.8, Benign neoplasm of rectum D12.0, Benign neoplasm of cecum R19.5, Other fecal abnormalities CPT copyright 2020 [employer]. All rights reserved. The codes documented in this report are preliminary and upon milieu manager reviewmay be revised to meet current compliance requirements. CARLIE Bains DO 01/08/2025 8:05:37 AM This report has been signed electronically.Carlie Bains DO Number of Addenda: 0 Note Initiated On: 01/08/2025 7:34 AM Scope In: Scope Out: Endoscopy Department at [facility] - [address] [place] [phone] IMPRESSION: - Hemorrhoids found on perianal exam. [...] is recommended in 1 year. Mammo Location: [facility], [address] [place] [address], [id number], . -------- FINAL REPORT -------- Dictated By: Juan Antonio Choe Dictated Date: 10/31/2024 11:10 ET Assigned Physician: Juan Antonio Choe Reviewed and Electronically Signed By: Juan Antonio Choe Signed Date: 10/31/2024 11:20 ET Workstation ID: [id number] Transcribed By: Self Edit Transcribed Date: 10/31/2024 [...] is recommended in 1 year. Mammo Location: [facility], [address] [place] [address], [address], . -------- FINAL REPORT -------- Dictated By: Juan Antonio Choe Dictated Date: 10/31/2024 11:10 ET Assigned Physician: Juan Antonio Choe Reviewed and Electronically Signed By: Juan Antonio Choe Signed Date: 10/31/2024 11:20 ET Workstation ID: [id number] Transcribed By: Self Edit Transcribed Date: 10/31/2024 11:10 ET Tamika Zamora MD IMG BI PROCEDURES Final Result * Depression Screening (06/28/2024) Pathologist [facility] Depression Screening abstracted Historical Provider HEALTH MAINTENANCE Final Result * (ABNORMAL) Lipid panel (01/20/2022) [facility] LDL/HDL Ratio 4 0 - 4 Triglycerides 255(A) 0 - 150 mg/dL Cholesterol 264(A) 0 - 200 mg/dL HDL 76 >=40 mg/dL LDL Cholesterol 137(A) 0 - 100 mg/dL Blood Venous blood specimen / Unknown Result [facility] Historical Provider LAB BLOOD ORDERABLES Vanessa l Result * Hepatitis C Screening (01/04/2014) [facility] Hepatitis C Screening abstracted Historical Provider HEALTH MAINTENANCE Final Result from Last 3 Months or Most Recently Relevant to Health Maintenance Insurance MEDICARE [facility] Care Teams Tank Stave Assembler Relationship Specialty Start Date End Date Tamika Zamora MD [address] [place] [id number] PCP - General Internal Medicine 02/26/21
== END 2025-06-05 11:46 | disposition home or self-care (01) ==
LOC: HO.HOS 11:10
PROVIDERS: Visit Provider Physician Assistant
DX: S82.142A Displaced bicondylar fracture of left tibia, initial encounter for closed fracture (principal); M17.12 Unilateral primary osteoarthritis, left knee
CPT/HCPCS: 99214

== ENCOUNTER 2025-06-05 11:10 | Outpatient (REF) | payer MEDICARE, SELFPAY ==
--- NOTE | ~2025-06-05 | XR_ITS ---
EXAMINATION: XR KNEE, LEFT CLINICAL INFORMATION: M25.569 - Pain in unspecified knee COMPARISON: April 12, 2025 TECHNIQUE: AP standing bilateral, sunrise, and lateral views of the left knee. FINDINGS: Changes related to total knee arthroplasty are present on the right. The left knee demonstrates moderate narrowing of the medial joint space. Faint stippled chondrocalcinosis is present in the medial and lateral menisci. Vacuum phenomenon is present in the medial compartment. Previous small joint effusion has mostly resolved. Sandstone views demonstrate faint stippled, calcinosis near the median ridge of patella and minimally along the lateral facet. Likely, there is degenerative cystic change in the lateral tibial plateau. 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 Probable degenerative cystic change in the lateral tibial plateau. Electronically signed by: Mason Dumont MD 06/05/2025 11:26 AM EDT
== END 2025-06-05 11:11 | disposition home or self-care (01) ==
LOC: HO.HOSX 11:10
PROVIDERS: Visit Provider Physician Assistant
DX: S82.142D Displaced bicondylar fracture of left tibia, subsequent encounter for closed fracture with routine healing (principal); M17.12 Unilateral primary osteoarthritis, left knee; W54.1XXD Struck by dog, subsequent encounter
CPT/HCPCS: 73562; 99212

== ENCOUNTER → 2025-06-05 11:13 | Outpatient (BNV) | payer MEDICARE, SELFPAY | PROVIDERS: Visit Provider Radiology Diagnostic Radiology | DX: M17.12 Unilateral primary osteoarthritis, left knee (principal) | CPT/HCPCS: 73562 ==

== ENCOUNTER 2025-06-06 09:10 | Outpatient (AMB) | payer MEDICARE, SELFPAY ==
--- NOTE | 2025-06-06 09:31 | MHC.OFFVIS ---
Vital Signs 06/06/25 09:35 Height 4 ft 11 in Weight 100 lb BMI 20.2 Intake Visit Reasons: Left knee pain Intake Note: Michelle is a 69 year old female who presents with complaints of progressively worsening left knee pain. The patient did undergo right total knee replacement surgery in 2017. She denies any pain in her right knee. She describes her left knee pain as sharp and severe in nature. Her left knee pain has gotten worse over the last few years in spite of continued non operative treatments. She has had injections in the past which gave her minimal relief. She has also tried Tylenol and Celebrex which gave her mild relief. The patient has difficulty walking even short distances because of her left knee pain. At this point her left knee pain is interfering with her activities of daily living and her ability to sleep well through the night. Allergies No Known Allergies Allergy (Verified 06/06/25 09:35) Medication List - Last Reconciled 06/06/25 by Luis Armando Wright MD xapkumyqzp-fhqefwhnykyax-syyk 50-325-40 mg 1 - 2 tabs PO DAILY PRN celecoxib 100 mg PO BID estradiol 0.01%(0.1mg/gram) vaginal omeprazole 20 mg PO BID ropinirole 0.25 mg PO BID trazodone 200 mg PO BEDTIME PRN PFSH Surgical History History of bladder surgery H/O: hysterectomy Hx of right knee surgery (~2016) Social History Alcohol intake: current Alcohol intake frequency: holidays/special occasions only Patient Tobacco Use Status: Never used Tobacco Current occupational status: retired Current occupation: Right hand dominant Physical Exam Vital Signs: BMI result Body Mass Index 20.2 Const Other: Well-nourished well-developed very friendly female awake alert and oriented x3 in no acute distress Extrem Other: Left knee examination shows a minimal effusion, palpable crepitus with range of motion, pain with range of motion, range of motion from -3 degrees to 115 degrees, no instability Results Reviewed Results Reviewed: X-rays of the patient's left knee show end-stage degenerative joint disease with grade 4 ypme-zf-iohn arthritis, subchondral sclerosis, osteophyte formation, varus angulation, no instability Assessment & Plan Assessment & Plan (1) Left knee pain: Code(s): M25.562 - Pain in left knee (2) Osteoarthritis of left knee: Code(s): M17.12 - Unilateral primary osteoarthritis, left knee Category: Medical Plan Ms. Abbott presents with progressively worsening left knee pain due to end-stage degenerative joint disease. I had a lengthy discussion with the patient regarding the treatment options. At this point she has failed continued non operative treatments. The risks and benefits of left total knee replacement surgery were discussed at length with the patient. The patient wishes to proceed with surgery later this year. I will have my office staff contact the patient to pick a surgery date. I will see her back 1 week prior to her surgery to answer any final questions that she might have. Feel free to call me at any time should questions regarding her orthopedic management arise. I spent 21 minutes in reviewing the patient's records and imaging studies, seeing the patient and documenting in the medical record. Coding Level of Care Code Est Pt Level 3 (75738) Complex EM visit Add On G2211 Diagnoses Left knee pain M25.562 Osteoarthritis of left knee M17.12
[2025-06-06 09:35] VITALS: BMI 20.2
--- OUTSIDE RECORDS SUMMARY | 2025-06-06 09:38 | XMS_ITS | Clinical Summary ---
Author Organization [facility] [address] [place] [address] [address] [place] [address] Phone Care Team Providers Care Channel Specialist Name Role Phone Tamika Zamora MD Primary [...] 1:30 PM EDT Consult Orthopedic Surgery - [address] [place] [address] Marisol Golden PA Trigger middle finger of right hand 03/19/2025 Telephone Adult [address] [address] Fausto Stevens PA Prior Auth (methocarbamoL (ROBAXIN) 500 mg tablet ) 03/16/2025 3:45 PM EDT - 03/16/2025 11:59 PM EDT Hospital Encounter Xray - [place] [address] [place] [address] Acute pain of left shoulder Discharge Disposition: Home or Self Care 03/16/2025 3:30 PM EDT Office Visit [facility] [place] [address] [place] [address] Rodney, Fausto D, PA Acute pain of left shoulder (Primary Dx); Trigger middle finger of right hand 03/14/2025 Telephone Adult Medicine - [place] [address] [place] [address] Tamika Taylor MD Shoulder Pain [...] obstruction TOTAL KNEE ARTHROPLASTY 05/10/2017 Right PROCEDURE: MT ARTHRP KNE CONDYLE&PLATU MEDIAL&LAT COMPARTMENTS OTHER SURGICAL HISTORY 05/2015 PROCEDURE: MT SLING OPERATION STRESS INCONTINENCE INCISIONAL HERNIA REPAIR 10/13/2018 PROCEDURE: MT IMPLANT MESH OPN HERNIA RPR/DEBRIDEMENT CLOSURE; COMMENT: Dr. Cabrera COLONOSCOPY 01/24/09 PROCEDURE: HISTORICAL COLONOSCOPY; COMMENT: Up to cecum, regular preparation in the right colon, good preparation in the left colon, sigmoid diverticulosis, otherwise normal colon exam HYSTERECTOMY 1986 PROCEDURE: HISTORICAL HYSTERECTOMY; COMMENT: Total Vaginal Hyst She had a prolapsed uterus after her 3rd child PARTIAL HYSTERECTOMY 1983 PROCEDURE: MT SUPRACERVICAL ABDL HYSTER W/WO RMVL TUBE OVARY; COMMENT: age 28 COLONOSCOPY PROCEDURE: HISTORICAL COLONOSCOPY; COMMENT: Martínez Diverticulosis Coli, Sml Internal Hemorrhoids, Repeat 10 yrs BLADDER SUSPENSION 01/21/2011 PROCEDURE: HISTORICAL BLADDER SUSPENSION; COMMENT: Lap abd sacrocolpopexy and Monarc suburethral sling for cystocele, vaginal vault prolapse and stress urinary incontinence OTHER SURGICAL HISTORY 2012 PROCEDURE: MT ANTERIOR COLPORRAPHY RPR CYSTOCELE W/CYSTO; COMMENT: for [...] for your loved ones. For example, child protective services social worker or elderly care for an older adult? [...] Procedure Name Priority Date/Time Associated Diagnosis Comments MT INJECTION SINGLE TENDON SHEATH OR LIGAMENT APONEUROSIS [...] Recently Relevant to Health Maintenance Results * MT INJECTION SINGLE TENDON SHEATH OR LIGAMENT APONEUROSIS [...] Signed Date: 03/16/2025 16:06 ET Workstation ID: [id number] Transcribed By: Self Edit Transcribed Date: 03/16/2025 [...] Signed Date: 03/16/2025 16:06 ET Workstation ID: [id number] Transcribed By: Self Edit Transcribed Date: 03/16/2025 16:04 ET Fausto NETTLES IMG XR PROCEDURES Final Resul t * COLONOSCOPY Anesthesia - MAC; [facility] ENDOSCOPY (01/08/2025 8:04 AM EST) Anatomical Region [...] pathology results. Narrative 01/08/2025 8:05 AM EST [facility] Patient Name: Michelle Macdonald Procedure Date: 01/08/2025 7:34 AM Date of : 1955 Age: 69 Gender: Female Note Status: Finalized Attending MD: Carlie Bains DO, [id number] Procedure Date No Time: 01/08/2025 Procedure: Colonoscopy [...] the physician, the nurse, the anesthesiologist, the adolescent coordinator and the predictive maintenance technician in the pre-procedure area in the [...] retroflexion views. Procedure Code(s): --- Professional --- 23382, Colonoscopy, flexible; with removal of tumor(s), polyp(s), or other lesion(s) by snare technique 33586, 59, Colonoscopy, flexible; with biopsy, single or multiple Diagnosis Code(s): --- Professional --- K64.9, Unspecified hemorrhoids D12.8, Benign neoplasm of rectum D12.0, Benign neoplasm of cecum R19.5, Other fecal abnormalities CPT copyright 2020 [employer] [place] [employer]. All rights reserved. The codes documented in this report are preliminary and upon data coder operator review may be revised to meet current compliance requirements. CARLIE Bains DO 01/08/2025 8:05:37 AM This report has been signed electronically.Carlie Bains DO Number of Addenda: 0 Note Initiated On: 01/08/2025 7:34 AM Scope In: Scope Out: Endoscopy Department at [facility] - [address] [place] [phone] Procedure Note Carlie Bains DO - 01/08/2025 [facility] Patient Name: Michelle Macdonald Procedure Date: 01/08/2025 7:34 AM Date of : 1955 Age: 69 Gender: Female Note Status: Finalized Attending MD: Carlie Bains DO, [id number] Procedure Date No Time: 01/08/2025 Procedure: Colonoscopy [...] the physician, the nurse, the anesthesiologist, the adolescent coordinator and thetechnician in the pre-procedure area in [...] retroflexion views. Procedure Code(s): --- Professional --- 54540, Colonoscopy, flexible; with removal of tumor(s), polyp(s), or other lesion(s) by snare technique 09682, 59, Colonoscopy, flexible; with biopsy,single or multiple Diagnosis Code(s): --- Professional --- K64.9, Unspecified hemorrhoids D12.8, Benign neoplasm of rectum D12.0, Benign neoplasm of cecum R19.5, Other fecal abnormalities CPT copyright 2020 [employer] [place] [employer]. All rights reserved. The codes documented in this report are preliminary and upon data coder operator reviewmay be revised to meet current compliance requirements. CARLIE Bains DO 01/08/2025 8:05:37 AM This report has been signed electronically.Carlie Bains DO Number of Addenda: 0 Note Initiated On: 01/08/2025 7:34 AM Scope In: Scope Out: Endoscopy Department at [facility] - [address] [place] [phone] IMPRESSION: - Hemorrhoids found on perianal exam. [...] is recommended in 1 year. Mammo Location: [facility], [address] [place] [address], [phone], . -------- FINAL REPORT -------- Dictated By: Juan Antonio Choe Dictated Date: 10/31/2024 11:10 ET Assigned Physician: Juan Antonio Choe Reviewed and Electronically Signed By: Juan Antonio Choe Signed Date: 10/31/2024 11:20 ET Workstation ID: [id number] Transcribed By: Self Edit Transcribed Date: 10/31/2024 [...] is recommended in 1 year. Mammo Location: [facility], [address] [place] [address], [phone], . -------- FINAL REPORT -------- Dictated By: Juan Antonio Choe Dictated Date: 10/31/2024 11:10 ET Assigned Physician: Juan Antonio Choe Reviewed and Electronically Signed By: Juan Antonio Choe Signed Date: 10/31/2024 11:20 ET Workstation ID: [id number] Transcribed By: Self Edit Transcribed Date: 10/31/2024 11:10 ET Tamika Zamoar MD IMG BI PROCEDURES Final Result * Depression Screening (06/28/2024) Pathologist [facility] Depression Screening abstracted Historical Provider HEALTH MAINTENANCE Final Result * (ABNORMAL) Lipid panel (01/20/2022) [facility] [address] LDL/HDL Ratio 4 0 - 4 Triglycerides 255(A) 0 - 150 mg/dL Cholesterol 264(A) 0 - 200 mg/dL HDL 76 >=40 mg/dL LDL Cholesterol 137(A) 0 - 100 mg/dL Blood Venous blood specimen / Unknown Result [facility] Historical Provider LAB BLOOD ORDERABLES Vanessa l Result * Hepatitis C Screening (01/04/2014) [facility] Hepatitis C Screening abstracted Historical Provider HEALTH MAINTENANCE Final Result from Last 3 Months or Most Recently Relevant to Health Maintenance Insurance MEDICARE [facility] Care Teams Channel Specialist Relationship Specialty Start Date End Date Tamika Zamora MD [address] [place] [phone] PCP - General Internal Medicine 02/26/21
--- OUTSIDE RECORDS SUMMARY | 2025-06-06 09:38 | XMS_ITS | Clinical Summary ---
Author Organization [facility] Address [address] [place] [address] Care Team Providers Care Drapery Rod Assembler Name Role Phone Tamika Ward MD Primary [...] age to complete this topic Care Teams Drapery Rod Assembler Relationship Specialty Start Date End Date Tamika Ward MD PCP - General Internal Medicine 09/01/22
== END 2025-06-06 09:56 | disposition home or self-care (01) ==
LOC: HO.HOS 09:11
PROVIDERS: Visit Provider Orthopaedic Surgery
DX: M25.562 Pain in left knee (principal); M17.12 Unilateral primary osteoarthritis, left knee
CPT/HCPCS: 99213; G2211

== ENCOUNTER → 2025-06-06 09:10 | Outpatient (BNVA) | payer MEDICARE, SELFPAY | PROVIDERS: Visit Provider Orthopaedic Surgery | DX: M17.12 Unilateral primary osteoarthritis, left knee (principal) | CPT/HCPCS: 99212 ==

== ENCOUNTER → 2025-10-18 10:18 | Outpatient (BNVA) | payer MEDICARE, SELFPAY | DX: Z01.818 Encounter for other preprocedural examination (principal) ==

== ENCOUNTER 2025-11-07 08:05 | Outpatient (AMB) | payer MEDICARE, SELFPAY ==
--- OUTSIDE RECORDS SUMMARY | 2025-11-03 08:39 | XMS_ITS | Encounter Summary ---
Author Organization [facility] Address [address] [place] [address] Care Team Providers Care Land Planner Name Role Phone Tamika Ward MD Primary Care Prov ider Reason for Referral * Imaging (Routine) - Authorized Specialty Diagnoses / Procedures Referred By Contac t Referred To Contact Radiology Diagnoses Encounter for screening mammogram for malignant neoplasm of breast Procedures MG Mammo Digital Screening w Tamika Aleman MD [address] [place] [address] Phone: tel: fax: [address] Phone: tel: Referral ID Status Reason Start Date Expiration Date V isits Requested Visits Authorized [id number] Authorized 10/02/2025 10/02/2026 1 1 Reason for Visit * Imaging (Routine) - Authorized Specialty Diagnoses / Procedures Referred By Contac t Referred To Contact Radiology Diagnoses Encounter for screening mammogram for malignant neoplasm of breast Procedures MG Mammo Digital Screening w Tamika Aleman MD [address] [place] [address] Phone: tel: fax: [address] Phone: tel: Referral ID Status Reason Start Date Expiration Date V isits Requested Visits Authorized [id number] Authorized 10/02/2025 10/02/2026 1 1 Encounter Details Date Type Department Care Team (Latest Contact Info) Description 11/03/2025 8:39 AM EST - 11/03/2025 11:59 PM EST Hospital Encounter Radiology Department - [address] [phone] Encounter for screening mammogram for malignant neoplasm of breast Discharge Disposition: Home or Self Care Social History Tobacco Use Types Packs/Day Years Used Date Smoking Tobacco: Former Cigarettes 2 Q uit: 02/06/1986 Smokeless Tobacco: Never Alcohol [...] for your loved ones. For example, child development instructor or elderly care for an older adult? [...] Date Recorded What is your living situation? Unrecognized valu e 03/15/2025 Comments No Sex and Gender Information Value Date Recorded Sex Assigned at Female 01/08/2025 6:49 AM EST Legal Sex Female 10:08 AM EST Gender Identity Female 01/08/2025 6:49 AM EST Sexual Orientation Straight 01/08/2025 6: 49 AM EST documented as of this encounter Medications at Time of Discharge acetaminophen (TYLENOL 8 HOUR ORAL) Take by mouth. butalbital-acetam inophen-caffeine (FIORICET, ESGIC) 50-325-40 mg per tabletIndications :Headache, unspecified headache type Take 1 tablet by mouth every 6 (six) hours if needed for headaches. Max Daily Amount: 4 tablets 32 tablet 1 09/17/2025 celecoxib (CeleBREX) 100 mg capsule Take 1 capsule (100 mg total) by mouth 2 (two) times a day. 180 each 1 09/14/2024 cholecalciferol (VITAMIN D-3) 25 mcg (1,000 unit) tablet Take 1 tablet (1,000 Units total) by mouth 1 (one) time each day. clobetasoL (TEMOVATE) 0.05 % creamIndications: Itching of vagina Apply topically 2 (two) times a day. 15 g 1 09/17/2025 methocarbamoL (ROBAXIN) 500 mg tabletIndications :Chronic bilateral low back pain with sciatica, sciatica laterality unspecified Take 1 tablet (500 mg total) by mouth 4 (four) times a day if needed for muscle spasms. 40 tablet 09/17/2025 multivit-min/ferr ous fumarate (MULTI VITAMIN ORAL) Take by mouth. omeprazole (PriLOSEC) [address] capsule TAKE ONE CAPSULE BY MOUTH TWICE A DAY 60 capsule 5 06/05/2025 rOPINIRole (REQUIP) 0.25 mg tablet TAKE TWO TABLETS BY MOUTH EVERY DAY IN THE EVENING ONE HOUR BEFORE BEDTIME 180 tablet 10/09/2025 traZODone (DESYREL) 100 mg tablet TAKE TWO TABLETS BY MOUTH EVERY DAY AT BEDTIME 180 tablet 10/09/2025 documented as of this encounter Discharge Disposition Disposition Code Departure Means Destination Home or Self Care documented in this encounter Plan of Treatment Upcoming Encounters Date Type Department Care Team (Late st Contact Info) Description 11/09/2025 8:30 AM EST Telemedicine Internal Medicine - [address] [phone] documented as of this encounter Procedures Procedure Name Priority Date/Time Associated Diagnosis Comments MG MAMMO DIGITAL SCREENING W VIC BILAT Routine 11/03/2025 8:48 AM EST Encounter for screening mammogram for malignant neoplasm of breast documented in this encounter Results * MG Mammo Digital Screening w Vic bilat (11/03/2025 8:48 AM EST) Anatomical Region Laterality Modality Breast Bilateral Mammography 11/06/2025 12:5 3 PM EST Impressions 11/06/2025 12:58 PM EST 1. No mammographic evidence of malignancy 2. Heterogeneous breast parenchyma BI-RADS CATEGORY: 2 - BENIGN RECOMMENDATION: Screening bilateral mammogram is recommended in 1 year. Mammo Location: [facility], [address] [place] [address], [address], . -------- FINAL REPORT -------- Dictated By: Juan Antonio Choe Dictated Date: 11/06/2025 12:53 ET Assigned Physician: Juan Antonio Choe Reviewed and Electronically Signed By: Juan Antonio Choe Signed Date: 11/06/2025 12:58 ET Workstation ID: [id number] Transcribed By: Self Edit Transcribed Date: 11/06/2025 12:53 ET Narrative 11/06/2025 12:58 PM EST A BILATERAL DIGITAL 3D SCREENING MAMMOGRAPHY HISTORY: Routine screening. No family history of breast cancer. COMPARISON: Multiple priors dating back to 10/14/2021 Technique: Bilateral full field digital mammography (3D) [...] Procedure Note Juan Antonio Choe MD - 11/06/2025 A BILATERAL DIGITAL 3D SCREENING MAMMOGRAPHY HISTORY: Routine screening. No family history of breast cancer. COMPARISON: Multiple priors dating back to 10/14/2021 Technique: Bilateral full field digital mammography (3D) [...] is recommended in 1 year. Mammo Location: [facility], [address] [place] [address], [phone], . -------- FINAL REPORT -------- Dictated By: Juan Antonio Choe Dictated Date: 11/06/2025 12:53 ET Assigned Physician: Juan Antonio Choe Reviewed and Electronically Signed By: Juan Antonio Choe Signed Date: 11/06/2025 12:58 ET Workstation ID: [id number] Transcribed By: Self Edit Transcribed Date: 11/06/2025 12:53 ET Tamika Ward MD IMG BI PROCEDURES Final Result documented in this encounter Visit Diagnoses Diagnosis Encounter for screening mammogram for malignant neoplasm of breast documented in this encounter Additional Health Concerns Assessment Noted Time PHQ-9 Depression Total Score: 0 03/15/20 25 5:11 PM EDT documented as of this encounter Care Teams Land Planner Relationship Specialty Start Date End Date Tamika Ward MD [address] [place] [id number] PCP - General Internal Medicine 02/26/21 documented as of this encounter
--- NOTE | 2025-11-07 08:08 | A.OFFVIS_ITS ---
Intake Visit Reasons: Pre-Op: L TKA w/ 11/12/25 Intake Note: Michelle is a 70 year old female who presents with complaints of progressively worsening left knee pain. The patient did undergo right total knee replacement surgery in 2017. She denies any pain in her right knee. She describes her left knee pain as sharp and severe in nature. Her left knee pain has gotten worse over the last few years in spite of continued non operative treatments. She has had injections in the past which gave her minimal relief. She has also tried Tylenol and Celebrex which gave her mild relief. The patient has difficulty walking even short distances because of her left knee pain. At this point her left knee pain is interfering with her activities of daily living and her ability to sleep well through the night. Allergies No Known Allergies Allergy (Verified 10/18/25 15:05) Medication List - Last Reconciled 11/07/25 by Luis Armando Wright MD [id number] 50-325-40 mg 1 - 2 tabs PO DAILY PRN celecoxib 100 mg PO BID cholecalciferol (vitamin D3) (Vitamin D3) 25 mcg PO QAM clobetasol 0.05% 1 appl topical BID lactobacillus comb no.10 (Probiotic) 20,000 mmu cells PO DAILY multivitamin 1 tab PO QAM omeprazole 20 mg PO BID ropinirole 0.5 mg PO BEDTIME trazodone 200 mg PO BEDTIME PRN walker Folding front wheeled walker [facility] Medical History History of blood transfusion Hiatal hernia Diverticulosis Chronic headache Urinary incontinence Chronic cough RLS (restless legs syndrome) GERD (gastroesophageal reflux disease) Arthritis Surgical History H/O colonoscopy History of esophagogastroduodenoscopy (EGD) History of total right knee replacement History of bladder surgery H/O: hysterectomy Social History Are you a primary patient care provider to a significant other at home: No Do you presently have visiting nurse or other home services: No Alcohol intake: current Alcohol intake frequency: holidays/special occasions only Patient Tobacco Use Status: Former Tobacco user Tobacco use type: Cigarette Years Smoked: 7 Current occupational status: retired Current occupation: Right hand dominant Physical Exam Extrem Other: Left knee examination shows a minimal effusion, palpable crepitus with range of motion, pain with range of motion, no instability, range of motion from -3 degrees to 115 degrees Results Reviewed Results Reviewed: X-rays of the patient's left knee show end-stage degenerative joint disease with grade 4 [id number] arthritis, subchondral sclerosis, osteophyte formation, no acute bony abnormalities Assessment & Plan Assessment & Plan (1) Osteoarthritis of left knee: Code(s): M17.12 - Unilateral primary osteoarthritis, left knee Category: Medical Plan Ms. Abbott presents with progressively worsening left knee pain due to end-stage degenerative joint disease. I had a lengthy discussion with the patient regarding the treatment options. At this point she has failed continued non operative treatments. The risks and benefits of left total knee replacement surgery were discussed at length with the patient. The patient wishes to proceed. manager of creative services will be consulted following her surgery for home physical therapy and nursing. The patient will follow up as instructed. Feel free to call me at any time should questions regarding her orthopedic management arise. I spent 21 minutes in reviewing the patient's records and imaging studies, seeing the patient and documenting in the medical record. Coding Level of Care Code Est Pt Level 3 (06246) Add On Problem Visit Only Diagnoses Osteoarthritis of left knee M17.12
--- OUTSIDE RECORDS SUMMARY | 2025-11-07 08:10 | XMS_ITS | Data Portability ---
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 Plan of Treatment Reminders Order Date Submit Date Provider Last Modified By Organization Details Last Modified Time Details Appointments None recorded. Lab urinalysi s, dipstick 2020 021 [email or web address] 1 In-Office Order, Internal Use Only DO Not Attach Compendium DO Not Attach Compendium, Do Not Delete/merge, [id number] 1 13:00:50 culture, urine 2020 021 [facility], [address] [place], [address], 1 10:05:38 pap test, thinprep, cervical 2019 020 tmeczywor [facility], Cytopathology Service, [address] [place], [address], 0 07:38:33 urinalysi s, dipstick 2019 020 [email or web address] In-Office Order, Internal Use Only DO Not Attach Compendium DO Not Attach Compendium, Do Not Delete/merge, [id number] 0 07:38:33 culture, urine 2019 020 [facility], [address] [place], [address], 0 08:19:19 fecal occult blood, stool 2019 020 [email or web address] In-Office Order, Internal Use Only DO Not Attach Compendium DO Not Attach Compendium, Do Not Delete/merge, [id number] 0 07:38:32 urinalysi s, dipstick 2018 019 tmeczywor In-Office Order, Internal Use Only DO Not Attach Compendium DO Not Attach Compendium, Do Not Delete/merge, [id number] 9 11:51:59 culture, urine 2018 019 [facility], [address] [place], [address], 9 12:58:29 Referral None recorded. Procedures None recorded. Surgeries None recorded. Imaging MAMMO, screening , digital, bilateral 2019 020 [facility] ([facility]), [address] [place], [address], 0 09:11:01 Medication Orders estradiol 1 mg tablet 2020 021 INTERFACE [facility], [address] [place] [address], [address], 1 13:54:38 progester one micronize d 200 mg capsule 2020 021 INTERFACE [facility], [address] [place] [address], [address], 1 13:54:38 nitrofura ntoin monohydra te/macroc rystals 100 mg capsule 2020 021 [email or web address] [facility], [address] [place] [address], [address], 1 13:42:05 fluconazo le 150 mg tablet 2020 021 [email or web address] [facility], [address] [place] [address], [address], 1 13:41:55 estradiol 0.01% (0.1 mg/gram) vaginal cream 2019 020 INTERFACE [facility], [address] [place] [address], [address], 0 08:53:45 triamcino lone acetonide 0.1 % topical cream 2019 [email or web address] [facility], [address] [place], [address], 13:42:23 Patient TargetsNo targets recorded. Patient Instructions Encounter Date Encounter Id Patient Instructions Last Modified By Organization Details Last Modified Time 06/15/2019 [id number] urinary tract infection in women information Not [...] 25 minutes Not available 06/15/2019 10:48:41 09/04/2020 [id number] learning about healthy weight Not available 09/04/2020 [...] could be ? Adithya, advised to see postal service mail processor. RX Erika rodas for cutaenous monilia. She [...] questions answered. Not available 09/04/2020 08:54:19 12/20/2020 [id number] Female Urinary T ract Infection (UTI): Care Instructions [facility] Not available 12/20/2020 14:25:13 vaginal yeast infection: care instructions [facility] Not available 12/20/2020 14:25:14 This visit is a phone telehealth visit. The patient consented to the visit by phone. The patient was at home at the time of the call and the provider and patient were the only people on the line. I was at [address] [place] [address], at the time of the call. She [...] evaluation. Face to face discussion 30 minutes [facility] Not available 12/20/2020 14:27:31 01/17/2021 [id number] This visit is a phone telehealth visit. The patient consented to the visit by phone. The patient was at home at the time of the call and the provider and patient were the only people on the line. I was at [address] [place] [address], at the time of the call. She [...] 30 minutes. Not available 01/17/2021 13:59:32 04/09/2021 [id number] urinary tract infection in women information Not [...] DO Not Attach Compendium, Do Not Delete/merge, [id number] 09/04/2020 08:21:16 06/01/20 19 06/01/2019 fecal occul t blood , stool Occult Blood negati ve Not Available In-Office Order Internal Use Only DO Not Attach Compendium DO Not Attach Compendium, Do Not Delete/merge, [id number] 06/01/2019 09:43:53 06/01/20 19 06/01/2019 cultu re, urine comments [facility] [address] [facility] [place] [place] [address] Medic al Dire dirk flores MD [facility] E: URINE ,MARCOS N CATCH ; Not Available [facility] [address] [facility], [place], [address], 06/03/2019 08:22:04 06/01/20 19 06/02/2019 cultu re, urine urine culture [facility] howard, [facility] [address] [place] [address] Medic al [facility] MD ALEXANDER Hutson CTION TIME: 2018 9:30: 00 AM -04:0 0 URINE CULTU RE KLEBS IELLA PNEUM O. SSP PNEUM O. ( KLEPS P ) F URINE CULTU RE COLON Y COUNT F URINE CULTU RE >100, 000 F Not Available [facility] [address] [place] [address], [address], 06/03/2019 08:22:04 06/01/20 19 06/01/2019 antib iotic sensi tivit y, isola te comments PAREN T ORGAN ISM: KLEBS IELLA PNEUM O. SSP PNEUM O. ( KLEPS P ) [facility] jennifer [place], [facility] [address] [place] [address] Medic al [facility] dirk flores MD SOURC E: URINE ,MARCOS N CATCH ; Not Available [facility] [address] [place] [address], [address], 06/03/2019 08:22:12 06/01/20 19 06/02/2019 antib iotic sensi tivit y, isola te gram negative susceptibili ty [facility] jennifer law[place], [facility] [address] [place] [address] Medic al [facility] MD ALEXANDER Hutson CTION TIME: 2018 [...] S F Not Available [facility] [address] [place], [address], 06/03/2019 08:22:12 06/01/20 19 06/01/2019 pap, LB [id number] ThinP rep Pap, Image d: NEGAT HOLLY [...] CERVI X, LPS = NEG Not Available [facility], Cytopathology Service [address] [place], [address], 06/06/2019 14:53:45 06/01/2006/01/2019 urina lysis , dipst [...] DO Not Attach Compendium, Do Not Delete/merge, [facility] 06/01/2019 09:31:27 06/01/2006/01/2019 urina lysis , dipst ick SG 1.015 Not Available In-Office Order Internal Use Only DO Not Attach Compendium DO Not Attach Compendium, Do Not Delete/merge, [facility] 06/01/2019 09:31:27 06/01/2006/01/2019 urina lysis , dipst ick BLO Negati ve Not Available In-Office Order Internal Use Only DO Not Attach Compendium DO Not Attach Compendium, Do Not Delete/merge, [facility] 06/01/2019 09:31:27 06/01/20 19 06/01/2019 urina lysis , dipst ick pH 7.0 Not Available In-Office Order Internal Use Only DO Not Attach Compendium DO Not Attach Compendium, Do Not Delete/merge, [facility] 06/01/2019 09:31:27 06/01/2006/01/2019 urina lysis , dipst ick PRO Negati ve Not Available In-Office Order Internal Use Only DO Not Attach Compendium DO Not Attach Compendium, Do Not Delete/merge, [facility] 06/01/2019 09:31:27 06/01/2006/01/2019 urina lysis , dipst ick URO 0.2 E.U. / dl Not Available In-Office Order Internal Use Only DO Not Attach Compendium DO Not Attach Compendium, Do Not Delete/merge, [facility] 06/01/2019 09:31:27 06/01/20 19 06/01/2019 urina lysis , dipst ick NIT negati ve Not Available In-Office Order Internal Use Only DO Not Attach Compendium DO Not Attach Compendium, Do Not Delete/merge, [id number] 06/01/2019 09:31:27 06/01/20 19 06/01/2019 urina lysis , dipst ick HARINI Small Not Available In-Office Order Internal Use Only DO Not Attach Compendium DO Not Attach Compendium, Do Not Delete/merge, [facility] 06/01/2019 09:31:27 06/15/2006/15/2019 cultu re, urine comments [facility] atorbooker lawrence, [facility] [address] [place] [address] Medic al [facility] dirk flores MD SOURC E: URINE ,MARCOS N CATCH ; Not Available [facility] [address] [place] [address], [id number], 06/16/2019 12:58:29 06/15/20 19 06/16/2019 cultu re, urine urine culture [facility], [facility] [address] [facility] [place] [address] Medic al [facility] dirk flores MD COLLE CTION TIME: 019 8:30: 00 AM -04:0 0 URINE CULTU RE <10,0 00 CFU/m L F URINE CULTU RE GRAM POSIT HOLLY COCCI and GRAM NEGAT HOLLY BACIL LI F Not Available [facility] [address] [place] [address], [address], 06/16/2019 12:58:29 06/15/20 19 06/15/2019 urina lysis , dipst ick GLU Negati ve Not Available In-Office Order Internal Use Only DO Not Attach Compendium DO Not Attach Compendium, Do Not Delete/merge, [id number] 06/15/2019 08:43:46 06/15/20 19 06/15/2019 urina lysis , dipst ick TERRENCE Negati ve Not Available In-Office Order Internal Use Only DO Not Attach Compendium DO Not Attach Compendium, Do Not Delete/merge, [id number] 06/15/2019 08:43:46 06/15/2006/15/2019 urina lysis , dipst ick KET Negati ve Not Available In-Office Order Internal Use Only DO Not Attach Compendium DO Not Attach Compendium, Do Not Delete/merge, [id number] 06/15/2019 08:43:46 06/15/2006/15/2019 urina lysis , dipst ick SG 1.015 Not Available In-Office Order Internal Use Only DO Not Attach Compendium DO Not Attach Compendium, Do Not Delete/merge, [facility] 06/15/2019 08:43:46 06/15/2006/15/2019 urina lysis , dipst ick BLO Negati ve Not Available In-Office Order Internal Use Only DO Not Attach Compendium DO Not Attach Compendium, Do Not Delete/merge, [facility] 06/15/2019 08:43:46 06/15/20 19 06/15/2019 urina lysis , dipst ick pH 5.0 Not Available In-Office Order Internal Use Only DO Not Attach Compendium DO Not Attach Compendium, Do Not Delete/merge, [facility] 06/15/2019 08:43:46 06/15/20 19 06/15/2019 urina lysis , dipst ick PRO Negati ve Not Available In-Office Order Internal Use Only DO Not Attach Compendium DO Not Attach Compendium, Do Not Delete/merge, [id number] 06/15/2019 08:43:46 06/15/2006/15/2019 urina lysis , dipst ick URO 0.2 E.U. / dl Not Available In-Office Order Internal Use Only DO Not Attach Compendium DO Not Attach Compendium, Do Not Delete/merge, [facility] 06/15/2019 08:43:46 06/15/2006/15/2019 urina lysis , dipst ick NIT negati ve Not Available In-Office Order Internal Use Only DO Not Attach Compendium DO Not Attach Compendium, Do Not Delete/merge, [facility] 06/15/2019 08:43:46 06/15/20 19 06/15/2019 urina lysis , dipst ick HARINI Negati ve Not Available In-Office Order Internal Use Only DO Not Attach Compendium DO Not Attach Compendium, Do Not Delete/merge, [id number] 06/15/2019 08:43:46 09/04/20 20 09/04/2020 cultu re, urine comments [facility], [facility] [address] [facility] [place] [address] Medic al Dire dirk flores MD SOUR E: URINE ,MARCOS N CATCH ; Not Available [facility] [address] [facility], [place], [address], 09/05/2020 08:19:19 09/04/20 20 09/05/2020 cultu re, urine urine culture [facility], a [facility] r of [facility] [address] [facility] [place] [address] Medic al Direc MD ALEXANDER Hutson CTION TIME: 09/04 8:30: 00 AM -04:0 0 URINE CULTU RE No growt h F Not Available [facility] [address] [place], [address], 09/05/2020 08:19:19 09/04/20 20 09/04/2020 pap, LB [id number] ThinP rep Pap, Image d: NEGAT HOLLY [...] neg, z12.4 , z01.4 19 Not Available [facility], Cytopathology Service [address] [place], [address], 09/06/2020 12:26:07 09/04/20 20 09/04/2020 urina lysis , dipst ick GLU Negati ve Not Available In-Office Order Internal Use Only DO Not Attach Compendium DO Not Attach Compendium, Do Not Delete/merge, [id number] 09/04/2020 08:28:19 09/04/20 20 09/04/2020 urina lysis , dipst ick TERRENCE Negati ve Not Available In-Office Order Internal Use Only DO Not Attach Compendium DO Not Attach Compendium, Do Not Delete/merge, [id number] 09/04/2020 08:28:19 09/04/20 20 09/04/2020 urina lysis , dipst ick KET Negati ve Not Available In-Office Order Internal Use Only DO Not Attach Compendium DO Not Attach Compendium, Do Not Delete/merge, [id number] 09/04/2020 08:28:19 09/04/20 20 09/04/2020 urina lysis , dipst ick SG 1.010 Not Available In-Office Order Internal Use Only DO Not Attach Compendium DO Not Attach Compendium, Do Not Delete/merge, [id number] 09/04/2020 08:28:19 09/04/20 20 09/04/2020 urina lysis , dipst ick BLO Negati ve Not Available In-Office Order Internal Use Only DO Not Attach Compendium DO Not Attach Compendium, Do Not Delete/merge, [id number] 09/04/2020 08:28:19 09/04/20 20 09/04/2020 urina lysis , dipst ick pH 6.0 Not Available In-Office Order Internal Use Only DO Not Attach Compendium DO Not Attach Compendium, Do Not Delete/merge, [id number] 09/04/2020 08:28:19 09/04/20 20 09/04/2020 urina lysis , dipst ick PRO Negati ve Not Available In-Office Order Internal Use Only DO Not Attach Compendium DO Not Attach Compendium, Do Not Delete/merge, [id number] 09/04/2020 08:28:19 09/04/20 20 09/04/2020 urina lysis , dipst ick URO 0.2 E.U. / dl Not Available In-Office Order Internal Use Only DO Not Attach Compendium DO Not Attach Compendium, Do Not Delete/merge, [id number] 09/04/2020 08:28:19 09/04/20 20 09/04/2020 urina lysis , dipst ick NIT negati ve Not Available In-Office Order Internal Use Only DO Not Attach Compendium DO Not Attach Compendium, Do Not Delete/merge, 09/04/2020 08:28:19 09/04/20 20 09/04/2020 urina lysis , dipst ick HARINI Negati ve Not Available In-Office Order Internal Use Only DO Not Attach Compendium DO Not Attach Compendium, Do Not Delete/merge, [id number] 09/04/2020 08:28:19 04/09/20 21 04/09/2021 cultu re, urine comments [facility], [facility] Of [address] [place] [address] Medic al [facility] dirk flores MD SOURC E: URINE ,MARCOS N CATCH ; Not Available [facility] [address] [place] [address], [address], 04/10/2021 10:05:38 04/09/20 21 04/10/2021 cultu re, urine urine culture [facility], [facility] [address] [facility] [place] [address] Medic al [facility] dirk flores MD COLLE CTION TIME: 021 10:00 :00 AM -04:0 0 URINE CULTU RE No growt h F Not Available [facility] [address] [place] [address], [address], 04/10/2021 10:05:38 04/09/20 21 04/09/2021 urina lysis [...] DO Not Attach Compendium, Do Not Delete/merge, [id number] 04/09/2021 10:06:35 06/02/20 21 04/09/2021 urina lysis , dipst ick BLO Negati ve Not Available In-Office Order Internal Use Only DO Not Attach Compendium DO Not Attach Compendium, Do Not Delete/merge, [id number] 04/09/2021 10:06:35 04/09/20 21 04/09/2021 urina lysis , dipst ick pH 6.5 Not Available In-Office Order Internal Use Only DO Not Attach Compendium DO Not Attach Compendium, Do Not Delete/merge, [facility] 04/09/2021 10:06:35 04/09/20 21 04/09/2021 urina lysis , dipst ick PRO Negati ve Not Available In-Office Order Internal Use Only DO Not Attach Compendium DO Not Attach Compendium, Do Not Delete/merge, [facility] 04/09/2021 10:06:35 04/09/20 21 04/09/2021 urina lysis , dipst ick URO 0.2 E.U. / dl Not Available In-Office Order Internal Use Only DO Not Attach Compendium DO Not Attach Compendium, Do Not Delete/merge, [facility] 04/09/2021 10:06:35 04/09/20 21 04/09/2021 urina lysis , dipst ick NIT negati ve Not Available In-Office Order Internal Use Only DO Not Attach Compendium DO Not Attach Compendium, Do Not Delete/merge, [facility] 04/09/2021 10:06:35 04/09/20 21 04/09/2021 urina lysis , dipst ick HARINI Negati ve Not Available In-Office Order Internal Use Only DO Not Attach Compendium DO Not Attach Compendium, Do Not Delete/merge, [facility] 04/09/2021 10:06:35 10/01/20 20 09/30/2020 MAMMO , scree galindo, digit al, bilat eral No observ ation record ed. Not Available 09/09 10:02:49 Result Notes None recorded. Problems Name Problem SNOMED Code Status Onset Date Resolution Date Notes Provider Name and Address Organization Details Recorded Time Lichen sclerosus et atrophicus Active Kathy Mac MD [address], [place], [address], [place] [facility], 6 10:38:18 Candidal vulvovagin itis 17424392 Active Kathy Mac MD [address], [place], [address], [place] - [facility], 6 11:16:16 Dysuria 86484374 Active Kathy Mac MD [address], [place], [address], [place] - [facility], 6 10:38:18 Acute lower urinary tract infection 116616401 Active 01/2018: She was having recurrent UTI in 2016, began using the Estrace vaginal cream regularly and the UTIs resolved, she stopped the cream 4 months ago and is now having recurrent UTI again. Kathy Mac MD [address], [place], [address], [place] - 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, 6 10:38:18 Menopausal syndrome 961549988 Active Kathy Mac MD [address], [place], [address], [place] - [facility], 6 10:38:18 Vaginal wall prolapse 696950642 Active Kathy Mac MD [address], [place], [address], [place] [facility], 6 10:38:18 Arthritis 0722006 Active 2016 right knee Malini root [place] - [facility], 7 08:52:23 Recurrent urinary tract infection 837268996 Active 2017 Kathy Mac MD [address], [place], [address], [place] - [facility], 8 08:34:11 Candidiasi s of skin 17502770 Active 2018 Kathy Mac MD [address], [place], [address], [place] - [facility], 9 10:10:38 Problem Notes None recorded. Procedures Surgical History Date Name Laterality Status Provider Name and Address Organization Details Recorded Time 04/01/20 21 procedure on knee completed Tequila Mosley [place] - [facility], 04/09/2021 10:05:05 10/13/20 18 Hernia repair w/mesh completed Malini Irvin [place] - [facility], 05/09/2019 13:40:35 05/10/20 17 Other completed Tequila Mosley [place] - [facility], 01/14/2018 10:13:37 05/08/20 15 Other completed Tequila Mosley [place] - [facility], 12/18/2015 08:52:00 02/28/20 14 Other completed Malini Irvin [place] - [facility], 04/10/2014 08:10:20 08/08/20 12 Hernia repair w/mesh completed Kathy Mac MD [address], [place], [address], [place] - [facility], 01/03/2013 10:21:46 02/07/20 11 Other completed Kathy Mac MD [address], [place], [address], [place] - [facility], 01/03/2013 10:21:26 11/08/18 87 Hysterectomy completed Kathy Mac MD [address], [place], [address], [place] - [facility], 01/03/2013 09:34:42 Imaging Results None recorded. [...] DateTime 01/17/2021 149.86 cm Yolis Fregoso in [facility], 01/17/2021 13:41:09 Date Recorded Body height Body mass index (BMI) Body weight Body temperature Heart rate Systolic And Diastolic Provider Name and Address Organization Details Last Updated DateTime 1 149.86 cm 22.9 kg/m2 59013.6 6 g 97 [degF] 85 /min 110/69 mm[Hg] Tequila Albert in [facility], 1 10:03:36 Date Recorded Body height Heart rate Body mass index (BMI) Body weight Systolic And Diastolic Provider Name and Address Organization Details Last Updated DateTime 06/15/2019 151.77 cm 81 /min 23.6 kg/m2 86785.08 g 108/67 mm[Hg] Malini Albert in [facility], 06/15/2019 08:42:16 Date Recorded Body weight Body mass index (BMI) Body height Body temperature Heart rate Systolic And Diastolic Provider Name and Address Organization Details Last Updated DateTime 0 05136.4 3 g 23.5 kg/m2 149.86 cm 97.5 [degF] 84 /min 119/80 mm[Hg] Tequila Sumnermadiha [place] - [facility], 0 08:21:45 Social History Question Answer Notes LastModified by Organizat ion Details LastModified Time Tobacco Smoking Status Former Smoker quit 30 yrs ago Not Available [facility] 09/10/2020 03:19:42 What Is Your Level Of Caffeine Consumption? None [id number] Information not available 09/10/2020 What Type Of Diet Are You Following? REGULAR [id number] Information not available 09/10/2020 Which Illicit Or Recreational Drugs Have You Used? No [id number] Information not available 09/10/2020 Do You Reside In Or Have You Traveled To An Area Where Ebola Virus Transmission Is Active? No [id number] Information not available 09/10/2020 Education 12 Information [...] How Much Tobacco Do You Smoke? No [id number] Information not available 09/10/2020 General Stress Level Medium Information not available 10/25/2014 How Many Years Have You Smoked Tobacco? 12 [id number] Information not available 09/10/2020 Have You Recently (within The Last 12 Weeks, Or During A Current ) Traveled To Or Lived In A Zika-affected Area? No [email or web address] Information not available 01/01/2017 Sex: Female Functional Status Question Answer Note LastModified by Organizat ion Details LastModified Time What is your level of alcohol consumption? Occasional [id number] Information not available 09/10/2020 Do you or have you ever used smokeless tobacco? Never used smokeless tobacco Information not available 04/09/2021 What is your occupation? retire Information not available 09/04/2020 Do you or have you ever used e-cigarettes or vape? Never used electronic cigarettes Information not available 04/09/2021 What is your exercise level? Moderate [id number] Information not available 09/10/2020 Mental Status None [...] preservative 2 completed Katyh Mac MD [address] [facility],[address], [place], [address], [place] [facility], 01/03/2013 09:34:42 Tdap 3 completed [facility] [place] in [facility], 01/03/2013 09:07:00 Influenza, split virus, trivalent, preservative 3 completed [facility] [place] in [facility], 04/10/2014 08:09:01 Influenza, split virus, quadrivalent, preservative 4 completed Malini Caldwellesther root [facility] [place] in [facility], 09/27/2014 09:22:18 Influenza, split virus, trivalent, preservative 5 completed Tequila Mosley dk [facility] [place] in [facility], 12/18/2015 08:52:00 influenza, unspecified formulation 6 completed Malini Irvin dk [place] [place] in [facility], 01/01/2017 08:48:33 Influenza, split virus, quadrivalent, preservative 8 completed Malini [facility] [place] in [facility], 05/09/2019 13:39:08 Influenza, split virus, quadrivalent, preservative 0 completed Tequila Stokesmarcelaspencer dk [facility] in [facility], 09/04/2020 08:26:56 Past Encounters Encounter ID Performer Location Encounter Start Date Encounter Closed Date Diagnosis/Indication Diagnosis SNOMED-CT Code Diagnosis ICD10 Code Diagnosis IMO Codes Diagnosis Note [id number] MD KATHY Garsia MD [address] [place] [address], [address] [place] [address] 01/03/2013 08:41:17 01/03/2013 15:41:19 [id number] MD KATHY Garsia MD [address] [place] [address], [address] [place] [address] 04/10/2014 07:54:52 04/10/2014 09:52:01 Specialized medical examination [id number] Screening mammography 06258973 Lichen scl erosus et atrophicus 31683202 [id number] MD KATHY Garsia MD [address] [place] [address], [address] [place] [address] 09/27/2014 09:07:30 09/27/2014 11:01:44 Candidal vulvovaginitis 00379131 Dysuria 48853508 Atrophic vulvovaginitis 27105803 [id number] MD KATHY Garsia MD [address] [place] [address],[place] [address] [place] [address] 10/25/2014 08:38:48 10/25/2014 13:02:34 Lichen sclerosus et atrophicus 66674663 Atrophic vulvovaginitis 58810429 Vaginal wall prolapse 096821547 Dysuria 00192600 [id number] MD KATHY Garsia MD [address] [place] [address], [address] [place] [address] 12/18/2015 08:42:49 12/18/2015 10:27:02 Specialized medical examination 29361302 Z01.419 Screening for malignant neoplasm of rectum 403634223 Z12.12 Screening mammography 24 944116 Z12.31 [id number] MD KATHY Garsia MD [address] [place] [address], [place] [address] 03/17/2016 08:05:52 03/17/2016 13:08:02 Acute lower urinary tract infection 287786766 R30.0 Lichen scl erosus et atrophicus 11180551 L90.0 [id number] MD KATHY Garsia MD [address] [place] [address],[address] [place] [address] 03/25/2016 08:09:08 03/25/2016 11:27:44 Acute lower urinary tract infection 213166566 R30.0 [id number] MD KATHY Garsia MD [address] [place] [address], [place] [place] [address] 06/09/2016 13:19:33 06/09/2016 15:02:07 Acute lower urinary tract infection 347129931 R30.0 [id number] MD KATHY Garsia MD [address] [place] [address], [place] [place] [address] 01/01/2017 08:20:33 01/01/2017 11:37:45 Screening mammography 19056822 Z12.31 Specialize d medical examination 77059982 Z01.419 Screening for malignant neoplasm of rectum 651555354 Z12.12 Acute lowe r urinary tract infection 878626853 R30.0 Atrophic vulvovaginitis 67566193 N95.2 [id number] MD KATHY Garsia MD [address] [place] [address],[address] [address] [place] [address] 01/18/2017 07:56:21 01/18/2017 12:14:44 Acute lower urinary tract infection 104228945 R30.0 Menopausal syndrome 1237 12722 N95.9 [id number] MD KATHY Garsia MD [address] [place] [address],[facility] [place] [address] 02/02/2017 13:10:08 02/02/2017 14:35:00 Acute lower urinary tract infection 727261127 R30.0 Candidal vulvovaginitis 69943852 B37.3 [id number] MD KATHY Garsia MD [address] [place] [address],[facility] [place] [address] 01/14/2018 09:48:09 01/14/2018 12:05:08 Screening mammography 82232953 Z12.31 Acute lowe r urinary tract infection 637367628 R30.0 [id number] MD KATHY Garsia MD [address] [place] [address],[facility] [place] [address] 02/01/2018 10:34:17 02/01/2018 14:39:06 Specialized medical examination 47705295 Z01.419 Screening for malignant neoplasm of rectum 713257374 Z12.12 Screening mammography 24 598012 Z12.31 Acute lowe r urinary tract infection 543870324 R30.0 Atrophic vulvovaginitis 27890927 N95.2 Lichen scl erosus et atrophicus 59495203 L90.0 [id number] MD KATHY Garsia MD [address] [place] [address],[facility] [place] [address] 03/25/2018 08:27:29 03/25/2018 09:43:03 Recurrent urinary tract infection 247953691 N39.0 [id number] MD KATHY Garsia MD [address] [place] [address],[facility] [place] [address] 05/09/2019 13:20:47 05/09/2019 16:00:16 Screening mammography 85524872 Z12.31 Acute lowe r urinary tract infection 605605407 R30.0 Lichen scl erosus et atrophicus 98621212 L90.0 Atrophic vulvovaginitis 73110590 N95.2 Candidal vulvovaginitis 45677049 B37.3 [id number] MD KATHY Garsia MD [address] [place] [address], [address] [place] [address] 06/01/2019 09:24:51 06/01/2019 12:01:30 Acute lower urinary tract infection 568014468 R30.0 Specialize d medical examination 53415279 Z01.419 Screening for malignant neoplasm of rectum 567024932 Z12.12 Screening mammography 24 351614 Z12.31 Candidiasis of skin 4988 3006 B37.2 [id number] MD KATHY Garsia MD [address] [place] [address], [address] [place] [address] 06/02/2019 13:09:32 06/02/2019 15:47:06 Urinary tract infectious disease 73188203 N30.00 Candidal vulvovaginitis 09264633 B37.3 [id number] MD KATHY Garsia MD [address] [place] [address],[address] [address] 06/15/2019 08:30:24 06/15/2019 11:52:18 Acute lower urinary tract infection 504582762 R30.0 [id number] MD KATHY Garsia MD [address] [place] [address], [address] [place] [address] 09/04/2020 08:18:37 09/04/2020 10:21:39 Specialized medical examination 54225575 Z01.419 Screening for malignant neoplasm of rectum 591939682 Z12.12 Screening mammography 24 285693 Z12.31 Atrophic vulvovaginitis 75951666 N95.2 Acute lowe r urinary tract infection 346065605 R30.0 Lichen scl erosus et atrophicus 40069270 L90.0 [id number] MD KATHY Garsia MD [address] [place] [address], [address] [place] [address] 12/20/2020 14:15:25 12/20/2020 15:50:42 Candidal vulvovaginitis 88851336 B37.3 Urinary tr act infectious disease 15167795 N30.00 [id number] MD KATHY Garsia MD [address],[place] [address] [place] [address] 01/17/2021 13:33:34 01/17/2021 15:25:30 Menopausal syndrome 123099527 N95.1 [id number] MD KATHY Garsia MD [address],[place] [address] [place] [address] 04/09/2021 09:52:20 04/10/2021 08:58:45 Acute lower urinary tract infection 225402734 R30.0 Lichen scl erosus et atrophicus 82816384 L90.0 Health Concerns Section Related Observation LastModified by Organization Detai ls LastModified Time None Recorded Concern Status LastModified by Organization Details LastModified Time None Recorded Advance Directives Directive None Recorded Payers Insurance Date Sequence Insurance Name Policy Number Policy Hall Covered Member ID Hall Member ID Guarantor Name 06/23/2014 2 [facility] [id number] Charlie Argiro [id number] Michelle Argiro 03/25/2018 1 [facility] [id number] Michelle Argiro [id number] Michelle Argiro 04/09/2021 1 [facility]) [id number] Charlie Argiro [id number] Michelle Argiro 04/09/[address] [place] [address] [id number] Michelle Argiro [id number] Michelle Argiro Notes Date Note Type Note [...] MD [address], [place], [address], [place] [facility], [...] could be ? Adithya, advised to see postal service mail processor. RX NyStop pwsder for cutaenous monilia. She appears to be doing well. Continue E2 vaginal cream. Check urine culture for ZACK. Kathy Mac MD [address] [place] [address],[address], [place], [address], [place] [facility], 09/04/2020 08:54:49 12/20/2020 text/html This visit is a phone telehealth visit. The patient consented to the visit by phone. The patient was at home at the time of the call and the provider and patient were the only people on the line. I was at [address] [place] [address], [address], [place], [place], at the time of the call. She is in quarantine for possible exposure to covid. She is very, very sore when she urinates, she also has vaginal pruritus. She tried Monistat OTC. She does not have frequency or urgency. Kathy Mac MD [address] [facility],[address], [place], [address], [facility], 12/20/2020 15:25:16 01/17/2021 text/html This visit is a phone telehealth visit. The patient consented to the visit by phone. The patient was at home at the time of the call and the provider and patient were the only people on the line. I was at [address] [facility] [address], [place], [place], at the time of the call. [...] her sister does. Kathy Mac MD [address] [facility],[address], [place], [address], [facility], 01/17/2021 14:40:11 04/09/2021 text/html She has had a few months of [...] she needed it. Kathy Mac MD [address], [place], [address], [place] [facility], 04/09/2021 13:10:00 OBGyn Episode No OBEpisode recorded.
--- OUTSIDE RECORDS SUMMARY | 2025-11-07 08:10 | XMS_ITS | Clinical Summary ---
Author Organization [facility] Prior to 04/07/25 Address [address] [place] [address] Care Team Providers Care Real Estate Sales Associate Name Role Phone Tamika Ward MD Primary [...] or Tdap) 11/08/2022 11/08/2012 COVID-19 Vaccine ( - season) 2025 09/11/2021, 02/04/2021, 01/14/2021 Influenza Vaccine (#1) 2025 [...] age to complete this topic Care Teams Real Estate Sales Associate Relationship Specialty Start Date End Date Tamika Ward MD PCP - General Internal Medicine 09/01/22
--- OUTSIDE RECORDS SUMMARY | 2025-11-07 08:10 | XMS_ITS | Clinical Summary ---
Author Organization [facility] [address] [place] [address] [address] [place] [address] Phone Care Team Providers Care Hospital Chaplain Name Role Phone Tamika Ward MD Primary Care Prov ider Allergies Active Allergy Reactions Criticality Noted Date Comments Other 09/16/2015 perfumes Medications cholecalciferol (VITAMIN D-3) 25 mcg (1,000 unit) tablet Take 1 tablet (1,000 Units total) by mouth 1 (one) time each day. Active celecoxib (CeleBREX) 100 mg capsule Take 1 capsule (100 mg total) by mouth 2 (two) times a day. 180 each 1 09/14/20 24 Active acetaminophen (TYLENOL 8 HOUR ORAL) Take by mouth. Active multivit-min/fe rrous fumarate (MULTI VITAMIN ORAL) Take by mouth. Active omeprazole (PriLOSEC) [address] capsule TAKE ONE CAPSULE BY MOUTH TWICE A DAY 60 capsule 5 06/05/20 25 Active butalbital-acet aminophen-caffe ine (FIORICET, ESGIC) 50-325-40 mg per tabletIndicatio ns:Headache, unspecified headache type Take 1 tablet by mouth every 6 (six) hours if needed for headaches. Max Daily Amount: 4 tablets 32 tablet 1 09/17/20 25 026 Active clobetasoL (TEMOVATE) 0.05 % creamIndication s:Itching of vagina Apply topically 2 (two) times a day. 15 g 1 09/17/20 25 026 Active methocarbamoL (ROBAXIN) 500 mg tabletIndicatio ns:Chronic bilateral low back pain with sciatica, sciatica laterality unspecified Take 1 tablet (500 mg total) by mouth 4 (four) times a day if needed for muscle spasms. 40 tablet 09/17/20 25 026 Active rOPINIRole (REQUIP) 0.25 mg tablet TAKE TWO TABLETS BY MOUTH EVERY DAY IN THE EVENING ONE HOUR BEFORE BEDTIME 180 tablet 10/09/20 25 Active traZODone (DESYREL) 100 mg tablet TAKE TWO TABLETS BY MOUTH EVERY DAY AT BEDTIME 180 tablet 10/09/20 25 Active rOPINIRole (REQUIP) 0.25 mg tablet TAKE TWO TABLETS BY MOUTH ONCE DAILY IN THE EVENING ONE HOUR BEFORE BEDTIME 180 tablet 07/10/20 25 025 Discontinued traZODone (DESYREL) 100 mg tablet TAKE TWO TABLETS BY MOUTH DAILY AT BEDTIME 180 tablet 07/10/20 25 025 Discontinued Active Problems Problem Noted Date Diagnosed Date Recurrent UTI 10/10/2024 Esophagitis 07/20/2022 Atrophic vaginitis 05/01/2021 Restless leg syndrome 05/01/2021 Chronic cough 12/07/2019 Chronic rhinitis 12/07/2019 Urinary incontinence 10/25/2019 Insomnia 03/19/2015 Chronic headaches 09/18/2014 Diverticulosis of sigmoid colon 01/24/2009 Overview (10/10/2024): Incidental finding on colonoscopy Hypercholesteremia 11/25/2008 Overview (10/10/2024): ASCVD risk score 3.9% 01/21/2022 Encounters Date Type Department Care Team Description 11/03/2025 8:39 AM EST - 11/03/2025 11:59 PM EST Hospital Encounter Radiology Department - [address] [phone] Encounter for screening mammogram for malignant neoplasm of breast Discharge Disposition: Home or Self Care 09/18/2025 Results Follow-Up Adult Medicine - [address] [phone] Tamika Watkins MD 09/17/2025 10:45 AM EST Lab Draw Station - [address] [place] [address] Pre-op examination; Type 2 diabetes mellitus with hyperglycemia, without long-term current use of insulin ([facility] [place], [facility] [place]28[place] 09/17/2025 10:00 AM EST Consult Adult Medicine - [address] [place] [phone] Tamika Watkins MD Preop examination (Primary Dx); Headache, unspecified headache type; Itching of vagina; Chronic bilateral low back pain with sciatica, sciatica laterality unspecified; Type 2 diabetes mellitus with hyperglycemia, without long-term current use of insulin ([facility] V24, [facility] V28) 08/08/2025 Telephone Internal Medicine - [address] [phone] Kyara El RN from Last 3 Months Immunizations Immunization Administration Dates Next Due COVID-19 (Moderna/Spikevax) 12yo [...] subun it RSVpreF, 0.5mL, Preservative Free (ABRYSVO) 50yo and older or 32 through 36 wks [...] status DX :Total knee replacement status; COMMENT: 2016 Right Recurrent UTI DX:Recurrent UTI Chronic headaches [...] 2 Q uit: 02/06/1986 Smokeless Tobacco: Never Tobacco Cessation:Counseling Given: Not Answered Alcohol Use Standard Drinks/Week Comments Yes 4 [...] care for your loved ones. For example, assistant child care teacher or elderly care for an older adult? [...] Sign Reading Time Taken Comments Blood Pressure 111/74 09/17/2025 10:01 AM EST Pulse 67 09/17/2025 10:01 AM EST Temperature 36.8 C (98.2 F) 09/17/2025 10:01 AM EST Respiratory Rate 18 02/03/2025 9:35 PM EDT Oxygen Saturation 98% 02/03/2025 9:35 PM EDT Inhaled Oxygen Concentration - - Weight 48.8 kg (107 lb 9.6 oz) 09/17/2025 10:01 AM EST Height 149.9 cm (4' 11 ) 04/11/2025 1:20 PM EDT Body Mass Index 21.73 04/11/2025 1:20 PM EDT Plan of Treatment Upcoming Encounters Date Type Department Care Team (Late st Contact Info) Description 11/09/2025 8:30 AM EST Telemedicine [facility] [address] [place] [phone] Health Maintenance Due Date Last Done Comments Drug Screen 1955 Non-Opioid Controlled Substance Agreement 1955 Diabetes: Annual Foot Exam 1966 Diabetes: Annual Retina Eye Exam 1966 Osteoporosis Screening (Bone Density Screening) 10/15/2022 Medicare Annual Wellness Visit 06/28/2025 06/28/2024 Diabetes: Annual Urine Albumin-Creatinine Ratio (uACR) 09/17/2025 COVID-19 Vaccine ( season) 2026 08/22/2025, 08/03/2024, 08/31/2023, Additional history exists Social Influencers of Health Screening 03/15/2026 03/15/2025 Falls Risk Assessment 03/16/2026 03/16/2025, 03/03/2 025 Diabetes: Blood Sugar Control Test (HGBA1C) 03/17/2026 09/17/2025 Diabetes: Annual GFR (Glomerular Filtration Rate) 09/17/2026 09/17/2025, 01/20/2022 Breast Cancer Screening 10/30/2026 11/03/20, 10/30/2024, 10/22/2023, Additional history exists Cholesterol Screening (Lipid Panel) [...] Completed 09/19/2023 Depression Screening Completed 03/15/2025, 06/28/20 Influenza Vaccine Completed 07/25/2025, , 08/31/2023, Additional history exists HIB Vaccines Aged Out [...] screening mammogram for malignant neoplasm of breast ECG Routine 09/17/2025 3:43 PM EST CBC WITH AUTO DIFFERENTIAL Routine 09/17/2025 10:45 AM EST Pre-op examination HEMOGLOBIN A1C Routine 09/17/2025 10:45 AM EST Type 2 diabetes mellitus with hyperglycemia, without long-term current use of insulin (CMS/HCC V24, CMS/HCC V28) BASIC METABOLIC PANEL Routine 09/17/2025 10:45 AM EST Pre-op examination CBC AND DIFFERENTIAL Routine 09/17/2025 10:45 AM EST Pre-op examination COLONOSCOPY Routine 01/08/2025 8:04 AM EST Positive colorectal cancer screening using Cologuard test HM DEPRESSION SCREENING Routine 06/28/2024 LIPID PANEL Routine 01/20/2022 HEPATITIS C SCREENING Routine 01/04/2014 from Last 3 Months or Most Recently Relevant to Health Maintenance Results * MG Mammo Digital Screening w Vic bilat (11/03/2025 8:48 AM EST) Anatomical Region Laterality Modality Breast Bilateral Mammography 11/06/2025 12:5 3 PM EST Impressions 11/06/2025 12:58 PM EST 1. No mammographic evidence of malignancy 2. Heterogeneous breast parenchyma BI-RADS CATEGORY: 2 - BENIGN RECOMMENDATION: Screening bilateral mammogram is recommended in 1 year. Mammo Location: [facility], [address] [place] [address], [id number], . -------- FINAL REPORT -------- Dictated By: Juan Antonio Choe Dictated Date: 11/06/2025 12:53 ET Assigned Physician: Juan Antonio Choe Reviewed and Electronically Signed By: Juan Antonio Choe Signed Date: 11/06/2025 12:58 ET Workstation ID: [id number] Transcribed By: Self Edit Transcribed Date: 11/06/2025 [...] is recommended in 1 year. Mammo Location: [facility], [address] [place] [address], [id number], . -------- FINAL REPORT -------- Dictated By: Juan Antonio Choe Dictated Date: 11/06/2025 12:53 ET Assigned Physician: Juan Antonio Choe Reviewed and Electronically Signed By: Juan Antonio Choe Signed Date: 11/06/2025 12:58 ET Workstation ID: [id number] Transcribed By: Self Edit Transcribed Date: 11/06/2025 12:53 ET us Tamika Ward MD IMG BI PROCEDURES Final Result * ECG (09/17/2025 3:43 PM EST) us Historical Provider ECG ORDERABLES Final Res ult * (ABNORMAL) CBC auto differential (09/17/2025 10:45 AM EST) [facility] WBC 6.0 4.8 - 10.8 K/mcL LAB HEMETOLOGY METHOD 09/17/2025 2:17 PM [facility] RBC 3.90 3.80 - 4.80 M/mcL LAB HEMETOLOGY METHOD 09/17/2025 2:17 PM [facility] Hemoglobin 11.1(L) 11.5 - 16.0 g/dL LAB HEMETOLOGY METHOD 09/17/2025 2:17 PM [facility] Hematocrit 35.5 35.0 - 47.0 % LAB HEMETOLOGY METHOD 09/17/2025 2:17 PM [facility] MCV 92.0 79.0 - 98.0 FL LAB HEMETOLOGY METHOD 09/17/2025 2:17 PM [facility] MCH 28.8 27.0 - 32.0 pcg LAB HEMETOLOGY METHOD 09/17/2025 2:17 PM [facility] MCHC 31.3(L) 32.0 - 37.0 g/dL LAB HEMETOLOGY METHOD 09/17/2025 2:17 PM [facility] RDW 13.9 11.0 - 15.0 % LAB HEMETOLOGY METHOD 09/17/2025 2:17 PM [facility] Platelets 366 130 - 400 K/mcL LAB HEMETOLOGY METHOD 09/17/2025 2:17 PM [facility] MPV 10.4 7.0 - 11.0 FL LAB HEMETOLOGY METHOD 09/17/2025 2:17 PM [facility] NRBC 0.0 <1.0 % LAB HEMETOLOGY METHOD 09/17/2025 2:17 PM [facility] NRBC Absolute 0.00 <0.10 K/mcL LAB HEMETOLOGY METHOD 09/17/2025 2:17 PM [facility] Neutrophils Relative 39.0 % LAB HEMETOLOGY METHOD 09/17/2025 2:17 PM [facility] Lymphocytes Relative 41.9 % LAB HEMETOLOGY METHOD 09/17/2025 2:17 PM [facility] Monocytes Relative 12.6 % LAB HEMETOLOGY METHOD 09/17/2025 2:17 PM [facility] Eosinophils Relative 5.5 % LAB HEMETOLOGY METHOD 09/17/2025 2:17 PM [facility] Basophils Relative 0.8 % LAB HEMETOLOGY METHOD 09/17/2025 2:17 PM [facility] Immature Granulocytes Relative 0.2 % LAB HEMETOLOGY METHOD 09/17/2025 2:17 PM [facility] Neutrophils Absolute 2.36 1.50 - 7.00 K/mcL LAB HEMETOLOGY METHOD 09/17/2025 2:17 PM [facility] Lymphocytes Absolute 2.53 1.00 - 5.00 K/mcL LAB HEMETOLOGY METHOD 09/17/2025 2:17 PM [facility] Monocytes Absolute 0.76 0.20 - 1.00 K/mcL LAB HEMETOLOGY METHOD 09/17/2025 2:17 PM [facility] Eosinophils Absolute 0.33 0.00 - 0.50 K/mcL LAB HEMETOLOGY METHOD 09/17/2025 2:17 PM EST [facility] Basophils Absolute 0.05 0.00 - 0.20 K/mcL LAB HEMETOLOGY METHOD 09/17/2025 2:17 PM EST [facility] Immature Granulocytes Absolute 0.01 0.00 - 0.03 K/[facility] LAB HEMETOLOGY METHOD 09/17/2025 2:17 PM EST [facility] Blood Venous blood specimen / Unknown Venipuncture / Unknown 09/17/2025 10:45 AM EST 09/17/2025 10:49 AM EST Tamika Ward MD LAB BLOOD ORDERABL ES Final Result Performing Organization Address City/[facility]/ZIP Co de Phone Number [facility] [address] [place] [address], [place] [phone] * Hemoglobin A1c (09/17/2025 10:45 AM EST) Hemoglobin A1C 5.2 <6.5 % LAB CHEMISTRY METHOD 09/17/2025 8:53 PM EST [facility] Mean Bld Glu Estim. 103 mg/dL LAB CHEMISTRY METHOD 09/17/2025 8:53 PM [facility] Blood Venous blood specimen / Unknown Venipuncture / Unknown 09/17/2025 10:45 AM EST 09/17/2025 10:49 AM EST Tamika Ward MD LAB BLOOD ORDERABL ES Final Result [facility] [address] [place] [address], [place] [phone] * Basic metabolic panel (09/17/2025 10:45 AM EST) Sodium 139 133 - 145 mmol/L LAB CHEMISTRY METHOD 09/17/2025 5:21 PM EST [facility] Potassium 4.6 3.5 - 5.5 mmol/L LAB CHEMISTRY METHOD 09/17/2025 5:21 PM [facility] Chloride 104 96 - 110 mmol/L LAB CHEMISTRY METHOD 09/17/2025 5:21 PM [facility] CO2 29 21 - 32 mmol/L LAB CHEMISTRY METHOD 09/17/2025 5:21 PM [facility] Anion Gap 6 3 - 11 LAB CHEMISTRY METHOD 09/17/2025 5:21 PM [facility] Glucose 81 70 - 100 mg/dL LAB CHEMISTRY METHOD 09/17/2025 5:21 PM [facility] BUN 18 5 - 25 mg/dL LAB CHEMISTRY METHOD 09/17/2025 5:21 PM [facility] Creatinine 0.62 0.50 - 1.10 mg/dL LAB CHEMISTRY METHOD 09/17/2025 5:21 PM [facility] eGFR 97 >=60 mL/min/1. 73m2 LAB CHEMISTRY METHOD 09/17/2025 5:21 PM [facility] Comment:Calculation based on the Chronic Kidney Disease Epidemiology Collaboration (CKD-EPI) equation refit without adjustment for race. BUN/Creatinine Ratio 29.0 LAB CHEMISTRY METHOD 09/17/2025 5:21 PM [facility] Calcium 10.3 8.5 - 10.5 mg/dL LAB CHEMISTRY METHOD 09/17/2025 5:21 PM [facility] Blood Venous blood specimen / Unknown Venipuncture / Unknown 09/17/2025 10:45 AM EST 09/17/2025 10:49 AM EST us Tamika Ward MD LAB BLOOD ORDERABL ES Final Result [facility] [address] [place] [address], * COLONOSCOPY Anesthesia - MAC; [facility] ENDOSCOPY (01/08/2025 8:04 AM EST) Anatomical Region [...] pathology results. Narrative 01/08/2025 8:05 AM EST [facility] GI Patient Name: Michelle Macdonald Procedure Date: 01/08/2025 7:34 AM Date of : 1955 Age: 69 Gender: Female Note Status: Finalized Attending MD: Carlie Bains DO, [id number] Procedure Date No Time: 01/08/2025 Procedure: Colonoscopy Indications: Positive Cologuard test Providers: Carlie Bains DO Referring MD: Tamika Ward MD Medicines: Monitored Anesthesia Care Complications: No [...] the physician, the nurse, the anesthesiologist, the food production machine operator and the heavy equipment technician in the pre-procedure area in the [...] retroflexion views. Procedure Code(s): --- Professional --- 26536, Colonoscopy, flexible; with removal of tumor(s), polyp(s), or other lesion(s) by snare technique 38766, 59, Colonoscopy, flexible; with biopsy, single or multiple Diagnosis Code(s): --- Professional --- K64.9, Unspecified hemorrhoids D12.8, Benign neoplasm of rectum D12.0, Benign neoplasm of cecum R19.5, Other fecal abnormalities CPT copyright 2020 [employer]. All rights reserved. The codes documented in this report are preliminary and upon tassel maker review may be revised to meet current compliance requirements. CARLIE Bains DO 01/08/2025 8:05:37 AM This report has been signed electronically.Carlie Bains DO Number of Addenda: 0 Note Initiated On: 01/08/2025 7:34 AM Scope In: Scope Out: Endoscopy Department at [facility] - [address] [place] [phone] Procedure Note Carlie Bains DO - 01/08/2025 [facility] GI Patient Name: Michelle Macdonald Procedure Date: 01/08/2025 7:34 AM Date of : 1955 Age: 69 Gender: Female Note Status: Finalized Attending MD: Carlie Bains DO, [id number] Procedure Date No Time: 01/08/2025 Procedure: Colonoscopy Indications: Positive Cologuard test Providers: Carlie Bains DO Referring MD: Tamika Ward MD Medicines: Monitored Anesthesia Care Complications: No [...] the physician, the nurse, the anesthesiologist, the food production machine operator and thetechnician in the pre-procedure [...] retroflexion views. Procedure Code(s): --- Professional --- 24986, Colonoscopy, flexible; with removal of tumor(s), polyp(s), or other lesion(s) by snare technique 33474, 59, Colonoscopy, flexible; with biopsy,single or multiple Diagnosis Code(s): --- Professional --- K64.9, Unspecified hemorrhoids D12.8, Benign neoplasm of rectum D12.0, Benign neoplasm of cecum R19.5, Other fecal abnormalities CPT copyright 2020 [employer]. All rights reserved. The codes documented in this report are preliminary and upon tassel maker reviewmay be revised to meet current compliance requirements. CARLIE Bains DO 01/08/2025 8:05:37 AM This report has been signed electronically.Carlie Bains DO Number of Addenda: 0 Note Initiated On: 01/08/2025 7:34 AM Scope In: Scope Out: Endoscopy Department at [facility] - [address] [place] [phone] IMPRESSION: - Hemorrhoids found on perianal exam. [...] DO GI~PROCEDURE ORDERABLES Final Re sult * Depression Screening (06/28/2024) Pathologist [facility] Depression Screening abstracted Historical Provider HEALTH MAINTENANCE Final Result * (ABNORMAL) Lipid panel (01/20/2022) [facility] LDL/HDL Ratio 4 0 - 4 Triglycerides 255(A) 0 - 150 mg/dL Cholesterol 264(A) 0 - 200 mg/dL HDL 76 >=40 mg/dL LDL Cholesterol 137(A) 0 - 100 mg/dL Blood Venous blood specimen / Unknown Result [facility] Historical Provider LAB BLOOD ORDERABLES Vanessa l Result * Hepatitis C Screening (01/04/2014) [facility] Hepatitis C Screening abstracted Historical Provider HEALTH MAINTENANCE Final Result from Last 3 Months or Most Recently Relevant to Health Maintenance Insurance MEDICARE [facility] Care Teams Hospital Chaplain Relationship Specialty Start Date End Date Tamika Ward MD [address] [place] [phone] PCP - General Internal Medicine 02/26/21
--- OUTSIDE RECORDS SUMMARY | 2025-11-07 08:10 | XMS_ITS | Encounter Summary ---
Author Organization [facility] Address [address] [place] [address] Care Team Providers Care Stator Plate Washer Name Role Phone Tamika Ward MD Primary Care Prov ider Encounter Details Date Type Department Care Team (Late st Contact Info) Description 09/18/2025 Results Follow-Up Adult Medicine - [address] [phone] Tamika Ward MD [address] [place] [address] Social History Tobacco Use Types Packs/Day Years [...] for your loved ones. For example, child welfare consultant or elderly care for an older adult? [...] AM EST documented as of this encounter Plan of Treatment Upcoming Encounters Date Type Department Care Team (Late st Contact Info) Description 11/09/2025 8:30 AM EST Telemedicine Internal Medicine - [facility] [address] [place] [phone] documented as of this encounter Visit Diagnoses Not on filedocumented in this encounter Additional Health Concerns Assessment Noted Time PHQ-9 Depression Total Score: 0 03/15/20 25 5:11 PM EDT documented as of this encounter Care Teams Stator Plate Washer Relationship Specialty Start Date End Date Tamika Ward MD [address] [place] [phone] PCP - General Internal Medicine 02/26/21 documented as of this encounter
== END 2025-11-07 08:26 | disposition home or self-care (01) ==
LOC: HO.HOS 08:06
PROVIDERS: Visit Provider Orthopaedic Surgery
DX: M17.12 Unilateral primary osteoarthritis, left knee (principal)
CPT/HCPCS: 99024

== ENCOUNTER → 2025-11-07 08:05 | Outpatient (BNVA) | payer MEDICARE, SELFPAY | PROVIDERS: Visit Provider Orthopaedic Surgery | DX: M17.12 Unilateral primary osteoarthritis, left knee (principal) | CPT/HCPCS: 99212 ==